=== PATIENT | male | born 1950 | race Caucasian/White ===

== ENCOUNTER → 2017-10-02 | Outpatient (CLI) | payer MEDICARE ==
[2017-09-30 14:32] VITALS: BMI 40.8
[2017-10-02 14:13] VITALS: BP 150/86; PULSE 73; RESP 16
--- NOTE | 2017-10-02 16:26 | P.CONS ---
History of Present Illness - Reason for Consult Consult date: 10/02/17 - History of Present Illness This is 67 years old male with a chronic history of severe neck pain and low back pain, he reported that his low back pain currently is more severe than his neck pain, also patient complained of some headache, which is increased with any neck movement, he denies any numbness or tingling sensation in the upper extremities, and he reported that his low back pain localized mainly in the low back area and is not ready to to the lower extremity he had no numbness or tingling sensation in the lower extremities, he had no motor or sensory deficit in the lower extremities he had no change in the bowel movement. Urination he had no fever or night sweats, is currently on multiple pain medication which is helping to some degree , but is still not able to do activities of daily livings without pain, the pain interfere with his quality of life Past Medical History Past Medical History: COPD, CVA/TIA, GERD/Reflux, Hypertension, Osteoarthritis ( OA), Sleep Apnea/CPAP/BIPAP, Thyroid Disorder Additional Past Medical History / Comment(s): stroke 2009- slight mental memory loss, hx high bp-no current rx, hx large colon polyp, degenertive arthritis, problems with a lot of sweating causes rash on face, goiter History of Any Multi-Drug Resistant Organisms: None Reported Past Surgical History: Back Surgery, Bowel Resection, Orthopedic Surgery Additional Past Surgical History / Comment(s): anal fistula, ,left orchietcomy, neck fusion Past Anesthesia/Blood Transfusion Reactions: No Reported Reaction Smoking Status: Former smoker - Past Family History Mother Family Medical History: Cancer Father Family Medical History: Cancer Sister(s) Family Medical History: Cancer Medications and Allergies Home Medications Medication Instructions Recorded Confirmed Type Esomeprazole Magnesium [NexIUM] 40 mg PO DAILY 09/30/17 09/30/17 History Furosemide [Lasix] 40 mg PO DAILY 09/30/17 09/30/17 History Gabapentin [Neurontin] 200 mg PO BID 09/30/17 09/30/17 History Gabapentin [Neurontin] 300 mg PO QAM 09/30/17 09/30/17 History Gabapentin [Neurontin] 600 mg PO HS 09/30/17 09/30/17 History LORazepam [Ativan] 1 mg PO QAM 09/30/17 09/30/17 History LORazepam [Ativan] 2 mg PO HS 09/30/17 09/30/17 History Levothyroxine Sodium [Synthroid] 100 mcg PO DAILY 09/30/17 09/30/17 History Naproxen [Naprosyn] 500 mg PO BID 09/30/17 09/30/17 History Sertraline [Zoloft] 100 mg PO BID 09/30/17 09/30/17 History oxyCODONE-APAP 10-325MG [Percocet 1 tab PO TID 09/30/17 09/30/17 History 10-325 mg] tiZANidine [Zanaflex] 4 mg PO BID 09/30/17 09/30/17 History Allergies Allergy/AdvReac Type Severity Reaction Status Date / Time adhesive tape Allergy Rash/Hives Verified 09/30/17 14:19 Penicillins Allergy Unknown Verified 09/30/17 14:19 Childhood Physical Exam Vitals: Vital Signs Pulse Resp BP Pulse Ox 10/02/17 14:00 73 16 150/86 99 Social history : not smoker , NO ETOH , NO Illegal drugs use . Review of Systems : 1- Constitutional : no chills , no fever , no night sweats , 2- Ears : no ear discharge , no change in hearing 3-Nose, Mouth ,Throat ; no bleeding gums, no sore throat , no epistaxis , 4-Cardiovascular : Denies chest pain, , no orthopnea , no palpitation 5-Respiratory : Denies cough , no dyspnea , no hemoptysis 6-Gastrointestinal :, no change in bowel habits , no coffee- ground emesis . 7-Genitourinary : No hematuria , no discharge , no incontinence, 8-Musculoskeletal : No gait dysfunction , report low back pain , 9- Neurological : no ataxia , no tremor , no sezure , 10-Psychatric , no suicidal ideation no hallucination 11- Endocrine : no cold intolerence , no polyuria , no polydypsia , 12-Hematologic : no easy bleeding , no easy brusing , 13-Allergic / immunology : no angioedema , no wheezing ,no allergic rhinitis 14-Integumentary : no brttle nails , no change hair / nails , no foot/leg ulcers . Physical Examinations : 1-Constitutional : Cooperative , not in acute distress . 2-HEENT : nech ; supple , no Lymphadenopathy , no Thyromegaly , :eyes , no icterus, no photophobia . ENT : , normal oropharynx , no Thrush 3- Respiratory : Chest clear to auscultations Bilaterally , no wheezing . 4- Cardiovascular : regular rate and rhythem , S1 , S2 , no S3 , no S4. 5- Gastrointestinal: abdomen soft no tenderness , no organomegally . 6- Genitourinary : Defferred . 7-Integumentary : No cellulitis , no ulcers , normal skin turgor , no cyanotic . 8- neurologic : Cranial nerve II to XII intact , no focal neurological deffecit 9-psychatric : alert , oriented X 3 , appropriate affect , intact judgment and insight . 10-Lymphatic : no Lymphadenopathy. 11- musculoskeltal: normal gait Cervical Spine motor stregnth in the deltoid and biceps, normal right side , normal Left side motor stregnth biceps and the wrist extensors normal right side ,normal left side . motor stregnth in the triceps muscle . normal Right side , normal Left side deep tendon reflexes normal at the biceps , normal at Brachioradialis , normal at triceps. positive cervical facet loading test . Lumber spine moter stegnth lower extremities ,thigh and legs 5/5 Right side , 5/5 Left side deep tendon reflexes : normal Knee Jerk , normal ankle Jerk positive lumber facet Loading Test Range of motion of the lumbar spine Flexion 30 degrees, extension 10 degrees strait leg raising test negative bilaterally Fabere test negative bilaterally . tenderness over the Sacroiliac joint on the R and L sides Results Comments: MRI of the lumbar spine showed multilevel lumbar degenerative disc disease and multilevel lumbar facet arthropathy and levoscoliosis, MRI of the cervical spine showed multilevel cervical degenerative disc disease Assessment and Plan Plan: Assessment and plan= chronic low back pain secondary to lumbar degenerative disc disease , lumbar spondylosis with lumbar facet arthropathy Neck pain secondary to cervical degenerative disc disease chronic and current use of high-risk medication (opioids) Patient denies any side effects of the current pain medication and the current treatment/medication ML and the patient to do activity of daily living , Diagnoses, prognosis, treatment options, including but not limited to physical therapy, medication management, interventional therapies, and surgery, were discussed with the patient All the questions answered Patient signed the narcotic agreement, and he was orally counseled, not to overuse, not to abuse, not to Divert , not tp sell pain medication, and to take it as prescribed only, Patient was counseled not to drive or operate heavy equipment while using narcotic medication, and advised not to use alcohol or any Illicit drugs while using the narcotis, the patient's verbalized understanding that lack of compliance with any of the above instructions and will likely to cause discharge from the pain service, not to renew his narcotic prescriptions, Patient used to go to [facility] but he elected to switch his care to [facility] pain clinic, because he lives closer to [place], he signed the narcotic agreement ,and next visit we'll do urine drug screen Medication managements= patient will be given prescription refills for 1-Percocet 10/325 every 6 hours dispense 90 with 1 refill 2-change Neurontin to 400 mg every 8 hours 3-continue Zanaflex 4 mg twice a day Interventional pain management= bilateral medial branch block lumbar area at L3-4/L4/L5-S1 , Time with Patient: Greater than 30
== END | disposition home or self-care (01) ==
LOC: PNWHC3 13:27
PROVIDERS: ATTEND Specialist
DX: M51.36 Other intervertebral disc degeneration, lumbar region (principal); M50.30 Other cervical disc degeneration, unspecified cervical region; M47.816 Spondylosis without myelopathy or radiculopathy, lumbar region; M46.96 Unspecified inflammatory spondylopathy, lumbar region; J44.9 Chronic obstructive pulmonary disease, unspecified; K21.9 Gastro-esophageal reflux disease without esophagitis; I10 Essential (primary) hypertension; M19.90 Unspecified osteoarthritis, unspecified site; Z79.891 Long term (current) use of opiate analgesic; Z79.1 Long term (current) use of non-steroidal anti-inflammatories (NSAID); Z91.09 Other allergy status, other than to drugs and biological substances; Z88.0 Allergy status to penicillin; Z79.899 Other long term (current) drug therapy; Z86.73 Personal history of transient ischemic attack (TIA), and cerebral infarction without residual deficits; Z86.39 Personal history of other endocrine, nutritional and metabolic disease; Z87.891 Personal history of nicotine dependence
CPT/HCPCS: 99201

== ENCOUNTER 2017-12-18 08:59 | Day surgery (SDC) | payer MEDICARE ==
[2017-12-11 10:01] VITALS: BMI 41.3
[~2017-12-18 08:59] MED LIST: LACTATED RINGERS 1,000 ML IV SCH
[2017-12-18 09:56] VITALS: TEMP 98.2
[2017-12-18] MEDS ORDERED: LIDOCAINE 1% 20 ML VIAL (10MG/ML) FOR IV START INTRADERMA ONE (10:15)
--- NOTE | 2017-12-18 10:43 | P.PCN ---
Date of Procedure: 12/18/17 Procedure(s) Performed: PREOPERATIVE DIAGNOSIS : 1- Lumbar spondylosis with Facet Arthropathy without myelopathy . 2- Lumber degenerative disc disease POSTOPERATIVE DIAGNOSIS: 1- Lumbar spondylosis with Facet Arthropathy without myelopathy . 2- Lumber degenerative disc disease PROCEDURE: Diagnostic bilateral L3 -4 , L4 -5 , and L5-S1 medial branch block under fluoroscopy ANESTHESIA: Local with 1% lidocaine 6 ml , moderate sedation with intravenous Versed 2 mg . EBL: Minimal COMPLICATION: None. IV FLUIDS: 100 mL of normal saline. PROCEDURE INDICATION: Chronic low back pain secondary to Facet arthropathy unresponsive to conservative treatment. PROCEDURE DESCRIPTION: the patient was seen and identified in the preop holding area , risks and benefits and possible complications of the procedure and alternative were discussed with the patient, and the patient agreed to proceed with the procedure and signed the consent IV was started and vital signs monitored during the procedure and fluoroscopy was used to maximize the benefit and accuracy of the needle placement, and sedation was given to decrease patient anxiety, patient was taken to the procedure room and placed in prone position vital signs monitored in the back prepped with chlorhexidine X3 then under strict sterile technique using a right oblique fluoroscopy ,the junction of the transverse process and the superior articulating process of the right L3- 4 , L4- 5, and L5-S1 vertebra which corresponding to the fluoroscopy image of the eye of the David dog on the block side for the medial branches and subsequently , after local infiltration of skin and subcu tissuies with lidocaine 1% one mL at each level ,then 22- gauge Quincke-type needles , 3 needle was used , each one of them placed at the junction of the base of the transverse process and the superior articular process at the appropriate level, and the needle was advanced until the periosteum contacted, needle placement confirmed with AP oblique and lateral view and after appropriate needle placement confirmed, and after negative aspiration for heme and CSF and there was no paresthesia 1-1/2 mL of Marcaine 0.5% mixed with 20 mg Kenalog , then half mL injected at each level after negative aspiration the needle subsequently removed and the same procedure repeated for the left side at left side at L3-4, L4- 5 and L5-S1 levels. At the end of the procedure and the needles removed and a bandage applied after the skin was cleaned the cleaning solution patient taken to recovery room in stable condition and monitors in the recovery room for 20-30 minutes and discharged home in stable condition after discharge criteria met and patient will follow up with the pain clinic in 2-4 weeks
[2017-12-18] MEDS ORDERED: IV FLUID CONTINUATION 1,000 ML IV ONE (10:51)
[2017-12-18 11:08] VITALS: BP 149/73; PULSE 80; RESP 16
--- NOTE | 2017-12-18 13:39 | FL ---
EXAMINATION TYPE: FL guided pain mgmt statistic DATE OF EXAM: 12/18/2017 FLUOROSCOPY Fluoroscopy time of 12 seconds was used during bilateral lumbar facet blocks. 4 image/s document/s t he procedure.
== END 2017-12-18 11:17 | disposition home or self-care (01) ==
LOC: ORPAIN 08:59
PROVIDERS: ATTEND Specialist
DX: G89.29 Other chronic pain (principal); M47.816 Spondylosis without myelopathy or radiculopathy, lumbar region; M51.36 Other intervertebral disc degeneration, lumbar region; I10 Essential (primary) hypertension; G47.33 Obstructive sleep apnea (adult) (pediatric); J44.9 Chronic obstructive pulmonary disease, unspecified; Z86.73 Personal history of transient ischemic attack (TIA), and cerebral infarction without residual deficits; Z88.0 Allergy status to penicillin; Z91.09 Other allergy status, other than to drugs and biological substances
CPT/HCPCS: 80307; 64493; 64494; 64495; G0480 ×3; J2250; J3301; 80346; 80356; 80364; 99152

== ENCOUNTER → 2018-01-15 | Outpatient (CLI) | payer MEDICARE ==
[2018-01-15 13:12] VITALS: BP 146/85; PULSE 72; RESP 18; TEMP 98
--- NOTE | 2018-01-15 15:16 | P.PN ---
Subjective Progress Note Date: 01/15/18 This is 67 years old male with a chronic history of severe low back pain, he was diagnosed with lumbar spondylosis and lumbar degenerative disc disease, we have done diagnostic medial branch block lumbar area over the last couple of months, he reported that he had no benefit from the diagnostic medial branch block, he has lumbar epidural steroid injections done by Dr. Matias , and he had no benefit from it, he was evaluated by Dr. Hilliard orthopedic spine surgeon and he recommended lumbar fusion surgery for him, currently he is on Neurontin 600 mg 3 times a day, Zanaflex 4 mg twice a day, Percocet 10/325 every 6 hours, he denies any side effects of the medication he denies any excessive drowsiness or sleepiness and he reports a current pain medication helping him to control his pain, he denies any fever or night sweats. He denies any change in the bowel movement or urination, and no motor or sensory deficit Objective - Vital Signs Vital signs: Vital Signs Temp 98 F 01/15/18 13:06 Pulse 72 01/15/18 13:06 Resp 18 01/15/18 13:06 BP 146/85 01/15/18 13:06 Pulse Ox 96 01/15/18 13:06 Intake & Output 01/14/18 01/15/18 01/15/18 18:59 06:59 18:59 Weight 125.645 kg - Exam Physical Examinations : 1-Constitutiona : Cooperative , not in acute distress . 2-HEENT : nech ; supple , no Lymphadenopathy , normal thyroid size . eyes : no ptosis , no icterus, no photophobia . ENT : normal of hearing , normal oropharynx , no Thrush . 3- Respiratory : Chest clear to auscultations Bilaterally , no wheezing , no Rhonchi . 4- Cardiovascular : regular rate and rhythem , S1 , S2 , no S3 , no S4. 5- Gastrointestinal : abdomen soft no tenderness , bowel sounds positive all four quadrents , no organomegally . 6- Genitourinary : Defferred . 7- neurologic : Cranial nerve II to XII intact , no focal neurological deffecit . 8-psychatric : alert , oriented X 3 , appropriate affect , intact judgment and insight . 9-Lymphatic : no Lymphadenopathy . 10- musculoskeltal : , Lumber spine = normal moter stegnth lower extremities ,thigh and legs .4/5 deep tendon reflexes : normal Knee Jerk , normal ankle Jerk . lumber facet Loading Test positive strait leg raising test positive at 30 degree Right , positve at 30 degree Left Fabere test positive Right and positive Left Assessment and Plan Plan: Assessment and plan= chronic low back pain secondary to lumbar degenerative disc disease , lumbar spondylosis with lumbar facet arthropathy , chronic and current use of high-risk medication (opioids) Patient denies any side effects of the current pain medication and the current treatment/medication ML and the patient to do activity of daily living , Diagnoses, prognosis, treatment options, including but not limited to physical therapy, medication management, interventional therapies, and surgery, were discussed with the patient All the questions answered Patient signed the narcotic agreement, and he was orally counseled, not to overuse, not to abuse, not to Divert , not tp sell pain medication, and to take it as prescribed only, Patient was counseled not to drive or operate heavy equipment while using narcotic medication, and advised not to use alcohol or any Illicit drugs while using the narcotis, the patient's verbalized understanding that lack of compliance with any of the above instructions and will likely to cause discharge from the pain service, not to renew his narcotic prescriptions Medication managements= patient will be given prescription refills for Neurontin 600 mg 3 times a day, dispense 90 with 1 refill, Zanaflex 4 mg twice daily, dispense 60 with one refill, Percocet 10/325 every 6 hours dispense 90 with 1 refill, also patient could benefit from the TENS unit trial prescription for physical therapy for TENS unit trial given, Patient is not a candidate for radiofrequency ablation of the medial branch lumbar area because he had negative result after the diagnostic medial branch block ( had ZERO releife ) And he had lumbar epidural steroid injection without any benefit (done at different pain clinic/Dr. Matias ) patient is not interested in having any surgical interventions, the patient reported that Dr. Hilliard he recommended lumbar fusion surgery , and the patient is not interested, patient will follow up in the pain clinic in 2 months , Time with Patient: Less than 30
== END | disposition home or self-care (01) ==
LOC: PNWHC3 12:06
PROVIDERS: ATTEND Specialist
DX: G89.29 Other chronic pain (principal); M54.5 Low back pain; M51.36 Other intervertebral disc degeneration, lumbar region; M47.816 Spondylosis without myelopathy or radiculopathy, lumbar region; M46.86 Other specified inflammatory spondylopathies, lumbar region; Z79.52 Long term (current) use of systemic steroids; Z79.899 Other long term (current) drug therapy; Z79.891 Long term (current) use of opiate analgesic
CPT/HCPCS: 99211

== ENCOUNTER → 2018-03-12 | Outpatient (CLI) | payer MEDICARE ==
[2018-03-12 13:56] VITALS: BP 151/81; PULSE 75; RESP 16
--- NOTE | 2018-03-12 14:46 | P.PN ---
Progress Note - Text Progress Note Date: 03/12/18 Progress Note Date: 11/20/17 Patient presents for follow-up visit with chief complaint of chronic low back pain with radiating right lower extremity pain, and lower extremity weakness. Patient had bilateral lumbar medial branch blocks which did not relieve any of his low back pain. I reviewed patient's MRI and explained to him the findings in this patient has severe bilateral neural foraminal stenosis at the L5-S1 junction, as well as spondylolisthesis, and facet arthropathy. I discussed with him the risks and benefits of doing a transforaminal epidural steroid injection, how to be both diagnostic and therapeutic. Patient is not considered a surgical candidate after having been evaluated by 2 neurosurgeons, and wishes to proceed with minimally invasive procedures to help control signs and symptoms. Today, pt denies new-onset weakness, bowel/bladder incontinence, or any other signs or symptoms of cauda equina syndrome. There are no signs of acute intoxication, and no indications of medication diversion or overuse. In addition to above, 13-point review of systems is also negative for chest pain , shortness of breath, changes in vision, changes in hearing, new onset weakness , abdominal pain, diarrhea, extreme fatigue, malaise, fever, skin changes, homicidal or suicidal ideation, or bowel or bladder incontinence. Vital Signs: Reviewed in EMR Gen: WDWN, AAOx3, NAD HEENT: NCAT, EOMI, hearing grossly normal Pulm: resp unlabored Abd: soft, NT, ND, obese Neck: supple, trachea midline ROM in flexion lumbar spine: reduced ROM in extension lumbar spine: reduced Lumbar paravertebral tenderness: + Facet loading: + R > L SI joint tenderness: + bilateral Sebas's test: + bilateral Straight leg raise: Positive on right at 30 4/5 dorsiflexion right foot, difficulty with ambulation with feet in dorsiflexed position Patellar reflexes intact bilateral Achilles reflex slightly diminished on right compared to left Neuro: CN II-XII grossly intact, muscle strength lower extremities PRESERVED Imaging: Reviewed in EMR Assessment: 1. Lumbar spondylolisthesis L5-S1 with bilateral neural foraminal stenosis 2. Lumbar facet arthropathy with spinal canal narrowing 3. chronic pain syndrome 4. Opioid dependency 5. Morbid obesity Plan: 1. Explanation: Opioid and psychological risk scores were reviewed. Diagnoses , prognoses, and multiple treatment options including but not limited to physical therapy, interventional therapies, adjuvant medical therapies, narcotic medication therapies, and surgery were discussed with the patient and all questions were answered to the patient's satisfaction. 2. Opioid agreement: Patient has previously signed narcotic agreement, and was orally counseled to not overuse, abuse, divert, or cell medications, and to take them as prescribed by only 1 healthcare provider. The patient was also counseled to store opioid medications in a safe and preferably locked location. Patient was also counseled against driving or operating heavy equipment while using narcotic medications and also to not use alcohol or any illicit or recreational drugs. The patient verbalized understanding that lack of compliance with any of the above and likely result in failure to renew narcotic prescriptions, possible discharge from the clinic, and possible legal ramifications thereafter if indicated. 3. Counseling: The patient was counseled extensively on BODY MASS INDEX, EXERCISE. Specifically, the patient was instructed regarding the importance of weight control, and exercise in the context of both chronic pain and overall health. 4. Procedures: Right L5 transforaminal epidural steroid injection 5. Consultations: Patient has been evaluated by neurosurgeons in the past, he was not deemed a surgical candidate because of overall comorbidities 6. Investigations: Maps reviewed and appropriate 7. Medications: [place] 10/325 #90 with no refill, Neurontin with two refills, Zanaflex with two refills 8. Disposition: f/u for procedure as scheduled. I spent 30 minutes with this patient, indicating that high-dose benzos with narcotics could result in respiratory depression and , and that he would likely be best served seeing a psychiatrist for non-benzo medical management of his anxiety, but the patient flatly refused and stated that he accepted all risks of being prescribed both opioids and benzos. PQRS measures: 1-Patient's medications are documented in the chart. 2-Tobacco use is negative 3-Patient has not had a pneumococcal vaccine. 4-Advanced care planning discussed, patient unable to give. 5-Opioid contract signed with the patient. 6-Pain positive, follow-up visit or procedure scheduled 7-Patient's blood pressure measured and documented, and patient will follow up with the primary care due to hypertension. 8-Patient's weight was measured, and body mass index ABOVE the normal limits, and counseling was done. Patient instructed to follow up with PCP. 9-Patient WAS NOT identified as an unhealthy alcohol user.
== END | disposition home or self-care (01) ==
LOC: PNWHC3 12:45
PROVIDERS: ATTEND Anesthesiology
DX: G89.4 Chronic pain syndrome (principal); M54.5 Low back pain; M48.061 Spinal stenosis, lumbar region without neurogenic claudication; M99.73 Connective tissue and disc stenosis of intervertebral foramina of lumbar region; M99.74 Connective tissue and disc stenosis of intervertebral foramina of sacral region; M43.17 Spondylolisthesis, lumbosacral region; M46.86 Other specified inflammatory spondylopathies, lumbar region; F11.20 Opioid dependence, uncomplicated; E66.01 Morbid (severe) obesity due to excess calories
CPT/HCPCS: 99211

== ENCOUNTER 2018-04-15 08:00 | Day surgery (SDC) | payer MEDICARE ==
[2018-04-13 09:03] VITALS: BMI 41.2
[2018-04-15 08:35] VITALS: TEMP 98.4
[2018-04-15] MEDS ORDERED: LIDOCAINE 1% 20 ML VIAL (10MG/ML) FOR IV START INTRADERMA ONE (08:47)
[2018-04-15 09:22] VITALS: RESP 16
[2018-04-15] MEDS ORDERED: IV FLUID CONTINUATION 1,000 ML IV ONE (09:25)
[2018-04-15 09:35] VITALS: BP 158/78; PULSE 68
--- NOTE | 2018-04-15 09:55 | FL ---
EXAMINATION TYPE: FL guided pain mgmt statistic DATE OF EXAM: 04/15/2018 FLUOROSCOPY Fluoroscopy time of 45 seconds was used during lumbar pain intervention procedure. 4 image/s documen t/s the procedure.
--- NOTE | 2018-04-15 10:21 | P.PCN ---
Date of Procedure: 04/15/18 Surgeon: Camilo Jaimes Pathology: none sent Condition: stable Disposition: PACU Description of Procedure: PREOPERATIVE DIAGNOSIS: Lumbar radiculopathy POSTOPERATIVE DIAGNOSIS: Lumbar radiculopathy PROCEDURE: 1. Transforaminal epidural steroid injection under fluoroscopic guidance at right L5 level. 2. Lumbar epidurogram. ANESTHESIA: Local with 1% lidocaine; IV sedation with Versed and fentanyl EBL: Minimal PROCEDURE INDICATION: The patient with low back pain and radiculopathy symptoms unresponsive to conservative treatment. Patient has pain primarily on the right side, so will proceed with TFESI today. No use of blood thinners. PROCEDURE DESCRIPTION / TECHNIQUE: The patient was seen and identified in the preoperative area. Risks, benefits, complications, and alternatives were discussed with the patient (including but not limited to incomplete pain relief, bleeding, infection, nerve damage, and allergies to medications), the patient agreed to proceed with the procedure and signed the consent after all questions were answered. Patient was taken to the OR and time out was completed to verify proper patient, position, laterality of pain, and allergies. Pt was placed in the prone position and a pillow was placed under the abdomen to reduce lumbar lordosis. The lumbosacral area was prepped and draped in the usual sterile fashion. Vital signs were closely monitored during the procedure. Conscious sedation was used during the procedure to decrease patients anxiety. Using oblique fluoroscopy, the chin of the David dog at right L5 level was identified, and the skin and deeper tissues just below was localized with 1% lidocaine. Subsequently, a 22-gauge 3.5-inch spinal needle was advanced under a tunneled view fluoroscopic guidance just underneath the chin of the David dog at the right L5 level. Under lateral fluoroscopy, the needle was then advanced to the posterior border of the L5-S1 interforaminal space. After negative aspiration of CSF and blood and with no paresthesias, 1 mL of Isovue- 200 contrast dye was injected excellent epidurogram and outlining of the L5 nerve roots. Subsequently, 3 mL of total 3 ml block solution containing 20 mg of Decadron and 1 mL of PF lidocaine 1% was injected. At the end of the procedure, needles were removed intact, skin was cleansed, and bandages were applied. COMPLICATIONS: None COMMENTS: None. DISPOSITION / PLANS: The patient was placed in a supine position and transferred to the recovery area in a stable condition for observation. There was no evidence of lower extremity motor or sensory deficit after the procedure. Patient was discharged from the recovery room after meeting discharge criteria. Home discharge instructions were given to the patient by the staff. The patient was reexamined prior to discharge and there were no issues. The patient will schedule a follow up in clinic in 2-4 weeks to discuss efficacy.
== END 2018-04-15 09:57 | disposition home or self-care (01) ==
LOC: ORPAIN 08:00
PROVIDERS: ATTEND Anesthesiology
DX: M54.16 Radiculopathy, lumbar region (principal); I10 Essential (primary) hypertension; K21.9 Gastro-esophageal reflux disease without esophagitis; Z88.0 Allergy status to penicillin; Z91.048 Other nonmedicinal substance allergy status
CPT/HCPCS: 64483; J2250; J1100; J3010; Q9966; 99152

== ENCOUNTER → 2018-05-07 | Outpatient (CLI) | payer MEDICARE ==
--- NOTE | 2018-05-07 13:34 | P.PN ---
Progress Note - Text Progress Note Date: 05/07/18 Patient returns for followup for chronic back pain with radiation to hips and lower legs. Patient recently underwent R lumbar L5 TFESI which caused him severe pain and only 7-10 days' relief. Patient continues on Brush, Neurontin, and Zanaflex medications for pain with good relief. He is now off Ambien and Ativan completely. Patient denies adverse drug effects from medications. Today , pt denies new-onset weakness, bowel/bladder incontinence, or any other signs or symptoms of cauda equina syndrome. There are no signs of acute intoxication, and no indications of medication diversion or overuse. In addition to above, 13-point review of systems is also negative for chest pain , shortness of breath, changes in vision, changes in hearing, new onset weakness , abdominal pain, diarrhea, extreme fatigue, malaise, fever, skin changes, homicidal or suicidal ideation, or bowel or bladder incontinence. Vital Signs: Reviewed in EMR Gen: WDWN, AAOx3, NAD HEENT: NCAT, EOMI, hearing grossly normal Pulm: resp unlabored Abd: soft, NT, ND, obese Neck: supple, trachea midline ROM in flexion lumbar spine: reduced ROM in extension lumbar spine: reduced Lumbar paravertebral tenderness: + Facet loading: + R > L SI joint tenderness: + bilateral Sebas's test: + bilateral Straight leg raise: + RLE at 10 degrees Imaging: Reviewed in EMR Assessment: 1. morbid obesity 2. lumbar spondylosis 3. chronic pain syndrome Plan: 1. Explanation: Opioid and psychological risk scores were reviewed. Diagnoses , prognoses, and multiple treatment options including but not limited to physical therapy, interventional therapies, adjuvant medical therapies, narcotic medication therapies, and surgery were discussed with the patient and all questions were answered to the patient's satisfaction. 2. Opioid agreement: Patient has previously signed narcotic agreement, and was orally counseled to not overuse, abuse, divert, or cell medications, and to take them as prescribed by only 1 healthcare provider. The patient was also counseled to store opioid medications in a safe and preferably locked location. Patient was also counseled against driving or operating heavy equipment while using narcotic medications and also to not use alcohol or any illicit or recreational drugs. The patient verbalized understanding that lack of compliance with any of the above and likely result in failure to renew narcotic prescriptions, possible discharge from the clinic, and possible legal ramifications thereafter if indicated. 3. Counseling: The patient was counseled extensively on BODY MASS INDEX, EXERCISE. Specifically, the patient was instructed regarding the importance of weight control, and exercise in the context of both chronic pain and overall health. 4. Procedures: none for now 5. Consultations: None 6. Investigations: UDS appropriate, MAPS queried and appropriate 7. Medications: Percocet 10/325 #90 with no refill, Neurontin increased to 600 mg QID (1200 mg at night) with one refill, Zanaflex with one refill 8. MME/day: 45 (unchanged) 8. Disposition: f/u for re-eval in 4 weeks. Recommended melatonin and increased dose of Neurontin at night to help with sleep. PQRS measures: 1-Patient's medications are documented in the chart. 2-Tobacco use is negative 3-Patient has not had a pneumococcal vaccine. 4-Advanced care planning discussed, patient unable to give. 5-Opioid contract signed with the patient. 6-Pain positive, follow-up visit or procedure scheduled 7-Patient's blood pressure measured and documented, and patient will follow up with the primary care due to hypertension. 8-Patient's weight was measured, and body mass index ABOVE the normal limits, and counseling was done. Patient instructed to follow up with PCP. 9-Patient WAS NOT identified as an unhealthy alcohol user.
== END | disposition home or self-care (01) ==
LOC: PNWHC3 12:44
PROVIDERS: ATTEND Anesthesiology
DX: G89.4 Chronic pain syndrome (principal); M54.9 Dorsalgia, unspecified; M47.816 Spondylosis without myelopathy or radiculopathy, lumbar region; E66.01 Morbid (severe) obesity due to excess calories; Z79.891 Long term (current) use of opiate analgesic; Z79.899 Other long term (current) drug therapy
CPT/HCPCS: 99211

== ENCOUNTER → 2018-06-04 | Outpatient (CLI) | payer MEDICARE ==
[2018-06-04 13:24] VITALS: BP 136/75; PULSE 72; RESP 18
--- NOTE | 2018-06-04 13:57 | P.PAINPG ---
Subjective Progress Note Date: 06/04/18 Principal diagnosis: Back pain, lumbar radicular pain This a very pleasant 68-year-old gentleman with a history of low back pain as well as lumbar radicular pain. He is undergone previous transforaminal epidural steroid injections which unfortunately was not helpful for him. He is also had previous compression fractures in his back and undergone kyphoplasty procedures which were not helpful either. He has had cervical spine surgery in the past. He did discuss lumbar spine surgery with his surgeon and was told it would take greater than 1 year for recovery. This is out of the question for him. He denies bowel or bladder dysfunction. He is not interested in further interventional procedures at this time. He would prefer to stay with medication management. He has discontinued his benzodiazepines as requested by one of my colleagues. Objective - Vital Signs Vital signs: Vital Signs Temp Pulse 72 06/04/18 13:13 Resp 18 06/04/18 13:13 BP 136/75 06/04/18 13:13 Pulse Ox 93 L 06/04/18 13:13 Intake & Output 06/03/18 06/04/18 06/04/18 18:59 06:59 18:59 Weight 120.656 kg - Exam General: The patient is alert and oriented. Patient is not sedateded Patient answers all question appropriately. He walks with antalgic gait. Cardiac: Heart is regular in rate and rhythm Respiratory: Clear to auscultation. No audible wheezes. Abdomen: Soft nontender nondistended. Lower extremities: Strength is normal bilaterally. Sensation is normal bilaterally. Reflexes are preserved and symmetric bilaterally. Straight leg raise is negative bilaterally. Assessment and Plan (1) Degenerative lumbar spinal stenosis Narrative/Plan: Plan of Care 1. Medications: I will refill the patient's medications today. His previous urine drug screen revealed expected results. A sample was collected today for processing. I have reviewed the patient's MAPS report and it reveals expected results. Patient has signed an opiate agreement as well as opiate consent for treatment in our clinic. They understand the risks and benefits of opiate medications. They are aware of the potential for addiction. 2. Interventions: Patient has not had good luck with previous injections. They have not helped him. We will not schedule any procedures at this time. 3. Referrals: He will follow-up with his spine surgeon on an as-needed basis. 4. Testing: A urine drug sample was sent today. 5. Psychological: Patient reports that he is coping with his situation well. He has a good level of acceptance of his situation. I will not refer him to a psychologist today. Current Visit: Yes Status: Acute Code(s): M48.061 - SPINAL STENOSIS, LUMBAR REGION WITHOUT NEUROGENIC BETTY SNOMED Code(s): 577188174 (2) Lumbar radicular pain Current Visit: Yes Status: Acute Code(s): M54.16 - RADICULOPATHY, LUMBAR REGION SNOMED Code(s): 305163606 (3) Chronic radicular lumbar pain Current Visit: Yes Status: Acute Code(s): M54.16 - RADICULOPATHY, LUMBAR REGION; G89.29 - OTHER CHRONIC PAIN SNOMED Code(s): 77173244 PQRS Measure Charge Sheet Measure #130: Documentation of Current Meds in Medical Chart: Patient's medications documented in chart Measure #226: Tobacco Use: Screen & Cessation Intervention: Pt not a tobacco user Measure #111: Pneumonia Vaccination: Pneumococcal vaccine NOT administered or previously given Measure #47: Advance Care Plan: Advance care planning discussed & documented, pt chose/unable to give Measure #412: Opioid Treatment Agreement: Documented signed opioid trtmnt agreemnt min once during opioid trtmnt Measure #408: Opioid Therapy Follow-up Evaluation: Patient had f/u eval minimum every 3 months during opioid therapy Measure #317: Preventitive Care & Scrn High Bld Press & F/U: Pre-hypertensive or hypertensive BP documented, pt will f/u with PCP Measure #128: Body Mass Index (BMI) Screening & Follow-up: BMI documented ABOVE normal parameters - f/u documented Measure #131: Pain Assessment & Follow-up: Pain positive & plan documented Measure #431: Unhealthy Alcohol Use Preventative Care & Scrn: Patient not identified as an unhealthy alcohol user PQRS Narrative: Smoking Status Current some day smoker Narcotic Agreement Date Signed 10/02/17 Blood Pressure 136/75 Pain Intensity [Right Lower 9 Back] Scale Used Numeric (1 - 10) Hx Alcohol Use (MH) No Home Medications: Ambulatory Orders Furosemide [Lasix] 40 mg PO DAILY 09/30/17 Levothyroxine Sodium [Synthroid] 100 mcg PO DAILY 09/30/17 Sertraline [Zoloft] 100 mg PO BID 09/30/17 Dexlansoprazole [Dexilant] 60 mg PO DAILY 11/04/17 Ranitidine HCl [Zantac] 150 mg PO DAILYX6 PRN 11/04/17 Acetaminophen/Diphenhydramine [Tylenol PM 500-25mg] 2 - 4 tab PO HS PRN Aspirin [Adult Low Dose Aspirin EC] 81 mg PO DAILY 04/13/18 Calcium 500 Mg 500 mg PO DAILY 04/13/18 Cholecalciferol [Vitamin D3] 2,000 unit PO DAILY 04/13/18 Laxative 1 dose PO DAILY PRN 04/13/18 Stool Softner 1 dose PO DAILY PRN 04/13/18 Gabapentin 600 mg PO QID #120 tablet 05/07/18 oxyCODONE-APAP 10-325MG [Percocet 10-325 mg] 1 tab PO TID PRN 30 Days #90 tab tiZANidine [Zanaflex] 4 mg PO BID PRN #60 tab 05/07/18 Controlled Substance Measures - Controlled Substance Measures Is patient prescribed a controlled substance at discharge?: Yes When asked, does pt state using other controlled substances?: No If Rx opioid, was Start Talking consent form obtained?: Yes Was information provided regarding opioid addiction?: Yes
== END | disposition home or self-care (01) ==
LOC: PNWHC3 13:00
PROVIDERS: ATTEND Pain Medicine Pain Medicine
DX: M48.061 Spinal stenosis, lumbar region without neurogenic claudication (principal); M54.16 Radiculopathy, lumbar region; Z98.890 Other specified postprocedural states
CPT/HCPCS: 99211

== ENCOUNTER → 2018-07-30 | Outpatient (CLI) | payer MEDICARE ==
[2018-07-30 12:52] VITALS: PULSE 68; RESP 16
[2018-07-30 13:05] VITALS: BP 135/69
--- NOTE | 2018-07-31 10:31 | P.PAINPG ---
Subjective Progress Note Date: 07/30/18 This is follow-up visit for this patient with a history of severe and chronic low back pain secondary to lumbar degenerative disc disease, lumbar facet arthropathy, lumbar radiculopathy We have done an interventional pain procedure diadgnostic medial branch block, he had no benefit from it, but this reason we did not do the radiofrequency, and we have done transforaminal lumbar epidural steroid injection, he had no benefit from it , he continued to have severe low back pain with radiation to the right lower extremity The patient currently on Percocet 10/325 every 8 hours, Neurontin 600 mg every 6 hours, Zanaflex 4 mg twice a day, Patient was seen by a spine surgeon Dr. Hilliard , and he recommended no surgical interventions because patient is high risk for surgery. Patient denies any side effect of the medication , patient denies any excessive drowsiness or sleepiness, patient denies any suicidal ideation, Patient reported that the current medication is helping to control the pain and improve the activity of daily livings, Patient denies any motor or sensory deficit, denies any change in the bowel movement or urination, patient denies any fever or night sweats. Patient here today for follow-up visit and medication refill Objective - Vital Signs Vital signs: Vital Signs Temp Pulse 68 07/30/18 12:44 Resp 16 07/30/18 12:44 BP 135/69 07/30/18 12:44 Pulse Ox 98 07/30/18 12:44 Intake & Output 07/30/18 07/31/18 07/31/18 18:59 06:59 18:59 Weight 122.47 kg - Exam Physical Examinations : 1-Constitutiona : Cooperative , not in acute distress . 2-HEENT : nech ; supple , no Lymphadenopathy , normal thyroid size . eyes : no ptosis , no icterus , no photophobia . ENT : normal of hearing , normal oropharynx , no Thrush . 3- Respiratory : Chest clear to auscultations Bilaterally , no wheezing , no Rhonchi . 4- Cardiovascular : regular rate and rhythem , S1 , S2 , no S3 , no S4. 5- Gastrointestinal : abdomen soft no tenderness , bowel sounds , no organomegally . 6- Genitourinary : Defferred . 7- neurologic : Cranial nerve II to XII intact , no focal neurological deffecit . 8-psychatric : alert , oriented X 3 , appropriate affect , intact judgment and insight . 9-Lymphatic : no Lymphadenopathy . 10- musculoskeltal : Lumber spine moter stegnth lower extremities ,thigh and legs 5/5 Right side , 5/5 Left side deep tendon reflexes : normal Knee Jerk , normal ankle Jerk positive lumber facet Loading Test Range of motion of the lumbar spine Flexion 30 degrees, extension 10 degrees strait leg raising test, positive at 30 degree Fabere test positive RT and positive LT . Assessment and Plan Plan: Assessment and plan= chronic low back pain secondary to lumbar degenerative disc disease , lumbar spondylosis with lumbar facet arthropathy . Patient had the relief from the pain management interventions, patient is not a good surgical candidate chronic and current use of high-risk medication (opioids) Patient denies any side effects of the current pain medication and the current treatment/medication helping the patient to do activity of daily living , Diagnoses, prognosis, treatment options, including but not limited to physical therapy, medication management, interventional therapies, and surgery, were discussed with the patient All the questions answered The narcotic consent was signed and patient agreed and understood the side effects and complications of opioid treatment. Patient signed the narcotic agreement, and was orally counseled, not to overuse, not to abuse, not to Divert , not tp sell pain medication, and to take it as prescribed only, Patient was counseled not to drive or operate heavy equipment while using narcotic medication, and advised not to use alcohol or any Illicit drugs while using the narcotis, the patient's verbalized understanding that lack of compliance with any of the above instructions, will likely to cause discharge from, the pain service, not to renew his narcotic prescriptions Medication managements= patient will be given prescription refills for Percocet 10/325 every 8 hours dispense 90 with 1 refill, Neurontin 600 mg every 6 hours dispense 120 with one refill Zanaflex 4 mg twice a day dispense 60 with 1 refill. MAPS reviewed and it was appropriate , Time with Patient: Less than 30 PQRS Measure Charge Sheet Measure #130: Documentation of Current Meds in Medical Chart: Patient's medications documented in chart Measure #226: Tobacco Use: Screen & Cessation Intervention: Pt screened for tobacco use AND intervention given Measure #111: Pneumonia Vaccination: Pneumococcal vaccine administered or previously received Measure #47: Advance Care Plan: Advance care planning discussed & documented, pt chose/unable to give Measure #412: Opioid Treatment Agreement: Documented signed opioid trtmnt agreemnt min once during opioid trtmnt Measure #408: Opioid Therapy Follow-up Evaluation: Patient had f/u eval minimum every 3 months during opioid therapy Measure #317: Preventitive Care & Scrn High Bld Press & F/U: Normal blood pressure, f/u not required Measure #128: Body Mass Index (BMI) Screening & Follow-up: BMI documented ABOVE normal parameters - f/u documented Measure #131: Pain Assessment & Follow-up: Pain positive & plan documented, Follow-up scheduled Measure #431: Unhealthy Alcohol Use Preventative Care & Scrn: Patient not identified as an unhealthy alcohol user PQRS Narrative: Smoking Status Current some day smoker Do You Want the Pneumonia Vaccine Up to Date Vaccine AT THIS TIME? Narcotic Agreement Date Signed 10/02/17 Blood Pressure 135/69 Pain Intensity [Bilateral 8 Lower Back] Scale Used Numeric (1 - 10) Hx Alcohol Use (MH) No Home Medications: Ambulatory Orders Furosemide [Lasix] 40 mg PO DAILY 09/30/17 Levothyroxine Sodium [Synthroid] 100 mcg PO DAILY 09/30/17 Sertraline [Zoloft] 100 mg PO BID 09/30/17 Dexlansoprazole [Dexilant] 60 mg PO DAILY 11/04/17 Ranitidine HCl [Zantac] 150 mg PO DAILYX6 PRN 11/04/17 Acetaminophen/Diphenhydramine [Tylenol PM 500-25mg] 2 - 4 tab PO HS PRN Aspirin [Adult Low Dose Aspirin EC] 81 mg PO DAILY 04/13/18 Calcium 500 Mg 500 mg PO DAILY 04/13/18 Cholecalciferol [Vitamin D3] 2,000 unit PO DAILY 04/13/18 Laxative 1 dose PO DAILY PRN 04/13/18 Stool Softner 1 dose PO DAILY PRN 04/13/18 Gabapentin 600 mg PO QID #120 tablet 07/30/18 oxyCODONE HCL/ACETAMINOPHEN [Percocet 10-325 mg] 1 tab PO Q8HR PRN 30 Days #90 tab 07/30/18 oxyCODONE-APAP 10-325MG [Percocet 10-325 mg] 1 tab PO TID PRN 30 Days #90 tab 08 /30/18 tiZANidine [Zanaflex] 4 mg PO BID PRN #60 tab 07/30/18 Controlled Substance Measures - Controlled Substance Measures Is patient prescribed a controlled substance at discharge?: Yes When asked, does pt state using other controlled substances?: No If prescribed controlled substance>3 days was MAPS reviewed?: Yes If Rx opioid, was Start Talking consent form obtained?: Yes If opioid is for acute pain is fill amount 7 days or less?: No Was information provided regarding opioid addiction?: Yes
== END | disposition home or self-care (01) ==
LOC: PNWHC3 12:35
PROVIDERS: ATTEND Specialist
DX: G89.29 Other chronic pain (principal); M54.5 Low back pain; M51.16 Intervertebral disc disorders with radiculopathy, lumbar region; M47.26 Other spondylosis with radiculopathy, lumbar region; M46.86 Other specified inflammatory spondylopathies, lumbar region; F17.200 Nicotine dependence, unspecified, uncomplicated; Z79.891 Long term (current) use of opiate analgesic
CPT/HCPCS: 99211

== ENCOUNTER → 2018-09-24 | Outpatient (CLI) | payer MEDICARE ==
[2018-09-24 13:00] VITALS: BP 131/66; PULSE 55; RESP 16
--- NOTE | 2018-09-24 13:30 | P.PN ---
Subjective Progress Note Date: 09/24/18 Principal diagnosis: Lumbar degenerative disc disease This is a 68-year-old gentleman with history of chronic lower back pain with radiation to the lower extremities down to his feet and also numbness and tingling in no specific radicular distribution. The patient feels mild weakness in his legs. He also complains of pain around the right upper thoracic spine area between his right shoulder and the spine. The patient is not a surgical candidate due to history of stroke after his cervical fusion surgery. He also did not respond to multiple interventional pain procedures. His pain now is relatively controlled by oral opioids including Percocet 10 mg plus Neurontin and Zanaflex. He denies any side effects to these medications and he does not show any drug-seeking behavior. By physical exam he is morbidly obese alert oriented 3 in no apparent distress. Neuro exam of the lower extremities showed decreased muscle strength to 4 out of 5 bilaterally and symmetrically, and absent deep tendon reflexes bilaterally and symmetrically. Straight leg raising test negative bilaterally He has tenderness on the right side of his upper thoracic spine Impression and plan: This is a 68-year-old male with lumbar degenerative disc disease and thoracic paravertebral myofascial pain. The patient may benefit from getting trigger point injection in the upper thoracic paravertebral musculature on the right side of the spine. The patient will think about this injection I will give us a call if he decides to go ahead with it. Today I will renew his medications including Percocet 10 mg #120 and his Neurontin and Zanaflex. We will see the patient 2 months from now for reevaluation Objective - Vital Signs Vital signs: Vital Signs Temp Pulse 55 L 09/24/18 12:50 Resp 16 09/24/18 12:50 BP 131/66 09/24/18 12:50 Pulse Ox 96 09/24/18 12:50 Intake & Output 09/23/18 09/24/18 09/24/18 18:59 06:59 18:59 Weight 124.284 kg
== END | disposition home or self-care (01) ==
LOC: PNWHC3 11:56
PROVIDERS: ATTEND Anesthesiology
DX: G89.29 Other chronic pain (principal); M54.5 Low back pain; M25.511 Pain in right shoulder; M51.36 Other intervertebral disc degeneration, lumbar region; M79.18 Myalgia, other site; E66.01 Morbid (severe) obesity due to excess calories; Z79.891 Long term (current) use of opiate analgesic; Z79.899 Other long term (current) drug therapy; Z98.1 Arthrodesis status; Z98.890 Other specified postprocedural states; Z68.41 Body mass index [BMI] 40.0-44.9, adult; Z86.73 Personal history of transient ischemic attack (TIA), and cerebral infarction without residual deficits
CPT/HCPCS: 99211

== ENCOUNTER → 2018-11-19 | Outpatient (CLI) | payer MEDICARE ==
[2018-11-19 12:44] VITALS: BP 132/82; PULSE 62; RESP 16
--- NOTE | 2018-11-20 14:03 | P.PN ---
Subjective Progress Note Date: 11/19/18 This is follow-up visit for this patient with a history of severe and chronic low back pain secondary to lumbar degenerative disc disease, lumbar facet arthropathy, lumbar radiculopathy We have done an interventional pain procedure diadgnostic medial branch block, he had no benefit from it, but this reason we did not do the radiofrequency, and we have done transforaminal lumbar epidural steroid injection, he had no benefit from it , he continued to have severe low back pain with radiation to the right lower extremity The patient currently on Percocet 10/325 every 8 hours, Neurontin 600 mg every 6 hours, Zanaflex 4 mg twice a day, She currently complaining of severe mid back pain , is diagnosed with compression fracture of the thoracic spine at T5 and T10 ,Patient had a kyphoplasty done at the thoracic spine and he continued to have severe mid back pain with radiation to the right side of the chest for the T 10 , he was evaluated by a spine surgeon Dr. Hilliard , and he recommended no surgical interventions because patient is high risk for surgery. Patient denies any side effect of the medication , patient denies any excessive drowsiness or sleepiness, patient denies any suicidal ideation, Patient reported that the current medication is helping to control the pain and improve the activity of daily livings, Patient denies any motor or sensory deficit, denies any change in the bowel movement or urination, patient denies any fever or night sweats. Patient here today for follow-up visit and medication refill Physical Examinations : 1-Constitutiona : Cooperative , not in acute distress . 2-HEENT : nech ; supple , no Lymphadenopathy , normal thyroid size . eyes : no ptosis , no icterus , no photophobia . ENT : normal of hearing , normal oropharynx , no Thrush . 3- Respiratory : Chest clear to auscultations Bilaterally , no wheezing , no Rhonchi . 4- Cardiovascular : regular rate and rhythem , S1 , S2 , no S3 , no S4. 5- Gastrointestinal : abdomen soft no tenderness , bowel sounds , no organomegally . 6- Genitourinary : Defferred . 7- neurologic : Cranial nerve II to XII intact , no focal neurological deffecit . 8-psychatric : alert , oriented X 3 , appropriate affect , intact judgment and insight . 9-Lymphatic : no Lymphadenopathy . 10- musculoskeltal : Flexion and extension of the thoracic spine limited secondary to pain Lumber spine moter stegnth lower extremities ,thigh and legs 5/5 Right side , 5/5 Left side deep tendon reflexes : normal Knee Jerk , normal ankle Jerk positive lumber facet Loading Test Range of motion of the lumbar spine Flexion 30 degrees, extension 10 degrees strait leg raising test, positive at 30 degree Fabere test positive RT and positive LT . Assessment and Plan Plan: Assessment and plan= Thoracic radiculopathy right-sided T9 ,T10 level chronic low back pain secondary to lumbar degenerative disc disease , lumbar spondylosis with lumbar facet arthropathy . Patient had the relief from the pain management interventions, patient is not a good surgical candidate chronic and current use of high-risk medication (opioids) Patient denies any side effects of the current pain medication and the current treatment/medication helping the patient to do activity of daily living , Diagnoses, prognosis, treatment options, including but not limited to physical therapy, medication management, interventional therapies, and surgery, were discussed with the patient All the questions answered The narcotic consent was signed and patient agreed and understood the side effects and complications of opioid treatment. Patient signed the narcotic agreement, and was orally counseled, not to overuse, not to abuse, not to Divert , not tp sell pain medication, and to take it as prescribed only, Patient was counseled not to drive or operate heavy equipment while using narcotic medication, and advised not to use alcohol or any Illicit drugs while using the narcotis, the patient's verbalized understanding that lack of compliance with any of the above instructions, will likely to cause discharge from, the pain service, not to renew his narcotic prescriptions Medication managements= patient will be given prescription refills for Percocet 10/325 every 8 hours dispense 90 with 1 refill, Neurontin 600 mg every 6 hours dispense 120 with one refill Zanaflex 4 mg twice a day dispense 60 with 1 refill. MAPS reviewed and it was appropriate Interventions= she could benefit from thoracic epidural steroid injections under fluoroscopy guidance (right paramedian approach at T10 level ) , PQRS Measure Charge Sheet Measure #130: Documentation of Current Meds in Medical Chart: Patient's medications documented in chart Measure #226: Tobacco Use: Screen & Cessation Intervention: Pt screened for tobacco use AND intervention given Measure #111: Pneumonia Vaccination: Pneumococcal vaccine administered or previously received Measure #47: Advance Care Plan: Advance care planning discussed & documented, pt chose/unable to give Measure #412: Opioid Treatment Agreement: Documented signed opioid trtmnt agreemnt min once during opioid trtmnt Measure #408: Opioid Therapy Follow-up Evaluation: Patient had f/u eval minimum every 3 months during opioid therapy Measure #317: Preventitive Care & Scrn High Bld Press & F/U: Normal blood pressure, f/u not required Measure #128: Body Mass Index (BMI) Screening & Follow-up: BMI documented ABOVE normal parameters - f/u documented Measure #131: Pain Assessment & Follow-up: Pain positive & plan documented, Follow-up scheduled Measure #431: Unhealthy Alcohol Use Preventative Care & Scrn: Patient not identified as an unhealthy alcohol user PQRS Narrative: - Controlled Substance Measures Is patient prescribed a controlled substance at discharge?: Yes When asked, does pt state using other controlled substances?: No If prescribed controlled substance>3 days was MAPS reviewed?: Yes If Rx opioid, was Start Talking consent form obtained?: Yes If opioid is for acute pain is fill amount 7 days or less?: No Was information provided regarding opioid addiction?: Yes Objective - Vital Signs Vital signs: Vital Signs Temp Pulse 62 11/19/18 12:39 Resp 16 11/19/18 12:39 BP 132/82 11/19/18 12:39 Pulse Ox 98 11/19/18 12:39 Intake & Output 11/19/18 11/20/18 11/20/18 18:59 06:59 18:59 Weight 125.645 kg
== END | disposition home or self-care (01) ==
LOC: PNWHC3 12:06
PROVIDERS: ATTEND Specialist
DX: G89.29 Other chronic pain (principal); M54.5 Low back pain; M51.16 Intervertebral disc disorders with radiculopathy, lumbar region; M47.26 Other spondylosis with radiculopathy, lumbar region; M46.86 Other specified inflammatory spondylopathies, lumbar region; F11.20 Opioid dependence, uncomplicated; F17.200 Nicotine dependence, unspecified, uncomplicated; Z98.890 Other specified postprocedural states; Z79.899 Other long term (current) drug therapy; Z71.6 Tobacco abuse counseling
CPT/HCPCS: 99211

== ENCOUNTER 2018-12-15 08:25 | Day surgery (SDC) | payer MEDICARE ==
[2018-12-11 15:28] VITALS: BMI 41.0
[~2018-12-15 08:25] MED LIST changes: -LACTATED RINGERS 1,000 ML IV SCH; +SODIUM CHLORIDE 0.9% 500 ML 500 ML IV SCH
[2018-12-15] MEDS ORDERED: LIDOCAINE 1% 20 ML VIAL (10MG/ML) FOR IV START INTRADERMA ONE (09:06)
[2018-12-15] MEDS ORDERED: LACTATED RINGERS 1,000 ML IV ONE (09:06)
[2018-12-15 09:24] VITALS: RESP 18; TEMP 98.6
--- NOTE | 2018-12-15 10:11 | P.PCN ---
Date of Procedure: 12/15/18 Procedure(s) Performed: PREOPERATIVE DIAGNOSIS: Thoracic radiculopathy POSTOPERATIVE DIAGNOSIS: Thoracic radiculopathy. PROCEDURE 1. Thoracic epidural steroid injection under fluoroscopic guidance at the T9-10 level. ( Right paramedian approache ) 2. Thoracic epidurogram. ANESTHESIA: Local with 1% lidocaine 3 ml and , moderate sedation with intravenous Versed 2 mg ,and fentanyle 50 Mcg EBL: Minimal PROCEDURE INDICATION: The patient with mid back pain and radiculitis symptoms unresponsive to conservative treatment. Fluoroscopy was used to optimize visualization of the needle placement and to maximize safety. PROCEDURE DESCRIPTION / TECHNIQUE: The patient was seen and identified in the preoperative area. Risks, benefits , complications including but not limited to infections ,bleeding ,allergic reaction to the medications ,nerve damage and not complete pain releife , and alternatives were discussed with the patient. The patient agreed to proceed with the procedure and signed the consent. IV was started, and vital signs were stable. Patient was taken to the OR and time out was completed. The patient was placed in the prone position on procedure table and a pillow was placed under the abdomen to reduce lumbar lordosis. The thoracic area was prepped and draped in the usual sterile fashion.ere closely monitored during the procedure. Conscious sedation was used during the procedure to decrease patients anxiety. Vital signs was monitered during the entire procedure. Using anterior-posterior fluoroscopy, the T9-10 interlaminar space was identified and the skin over this site was marked and then infiltrated with 1% lidocaine subcutaneously. Subsequently, a 20-gauge Tuohy epidural needle was inserted and advanced toward the epidural space using the ``Loss of resistance technique and guided by AP and lateral fluoroscopy. The correct needle position in the epidural space was verified with the injection of 2 mL of the water soluble contrast dye Isovue 200 contrast and observing an excellent epidurogram with the epidural spread of the dye, after negative aspiration for blood and CSF and in the absence of paresthesias. Again after negative aspiration, a 6 ml mixture containing 80 mg of Depo-medrol , and 2 ml of preservative free Normal Saline, and 2 ml of preservative free lidocaine 1% solution was injected and a washout of epidurogram was seen. Needle was withdrawn intact, skin was cleansed, and bandages were applied. COMPLICATIONS: None DISPOSITION / PLANS: The patient was placed in a supine position and transferred to the recovery area in a stable condition for observation. There was no evidence of lower extremity motor or sensory deficit after the procedure. Patient was discharged from the recovery room after meeting discharge criteria. Home discharge instructions were given to the patient by the staff. The patient was reexamined prior to discharge. The patient will schedule a follow up in the clinic in 2-4 weeks.
[2018-12-15] MEDS ORDERED: IV FLUID CONTINUATION 1,000 ML IV ONE (10:14)
--- NOTE | 2018-12-15 10:20 | FL ---
EXAMINATION TYPE: FL guided pain mgmt statistic DATE OF EXAM: 12/15/2018 CLINICAL HISTORY: Mid back pain. TECHNIQUE: Fluoroscopy. COMPARISON: None. FINDINGS: Fluoroscopic guidance was provided during pain relief procedure performed by Dr. Allred . A total of 20 seconds of fluoroscopic time was utilized during the procedure and two spot images a re acquired. Images acquired shows needle localization near lower thoracic spine. IMPRESSION: As Above.
[2018-12-15 10:39] VITALS: BP 130/58; PULSE 69
== END 2018-12-15 11:10 | disposition home or self-care (01) ==
LOC: ORPAIN 08:25
PROVIDERS: ATTEND Specialist
DX: M54.14 Radiculopathy, thoracic region (principal)
CPT/HCPCS: 62321; J2250; J1030; J3010; Q9966; 99152

== ENCOUNTER 2018-12-29 07:18 | Day surgery (SDC) | payer MEDICARE ==
[2018-12-28 10:51] VITALS: BMI 40.8
[2018-12-29 07:34] VITALS: RESP 16; TEMP 97.5
[2018-12-29] MEDS: LIDOCAINE 1% 20 ML VIAL (10MG/ML) FOR IV START INTRADERMA ONE (07:51)
[2018-12-29] MEDS: LACTATED RINGERS 1,000 ML IV ONE (07:51)
--- NOTE | 2018-12-29 09:07 | P.PCN ---
Date of Procedure: 12/29/18 Surgeon: Rebeca Schneider Pathology: none sent Condition: stable Disposition: PACU Description of Procedure: PREOPERATIVE DIAGNOSIS: Thoracic radiculopathy POSTOPERATIVE DIAGNOSIS: Thoracic radiculopathy. PROCEDURE 1. Thoracic epidural steroid injection under fluoroscopic guidance at the T9-10 level. ( Right paramedian approach ) 2. Thoracic epidurogram. ANESTHESIA: Local with 1% lidocaine 3 ml and , moderate sedation with intravenous Versed 2 mg ,and fentanyle 100 Mcg EBL: Minimal PROCEDURE INDICATION: The patient with mid back pain and radiculitis symptoms unresponsive to conservative treatment. Fluoroscopy was used to optimize visualization of the needle placement and to maximize safety. PROCEDURE DESCRIPTION / TECHNIQUE: The patient was seen and identified in the preoperative area. Risks, benefits , complications including but not limited to infections ,bleeding ,allergic reaction to the medications ,nerve damage and not complete pain releife , and alternatives were discussed with the patient. The patient agreed to proceed with the procedure and signed the consent. IV was started, and vital signs were stable. Patient was taken to the OR and time out was completed. The patient was placed in the prone position on procedure table and a pillow was placed under the abdomen to reduce lumbar lordosis. The thoracic area was prepped and draped in the usual sterile fashion.ere closely monitored during the procedure. Conscious sedation was used during the procedure to decrease patients anxiety. Vital signs was monitered during the entire procedure. Using anterior-posterior fluoroscopy, the T9-10 interlaminar space was identified and the skin over this site was marked and then infiltrated with 1% lidocaine subcutaneously. Subsequently, a 20-gauge Tuohy epidural needle was inserted and advanced toward the epidural space using the ``Loss of resistance technique and guided by AP and lateral fluoroscopy in the right paramedian approach. The correct needle position in the epidural space was verified with the injection of 2 mL of the water soluble contrast dye Isovue 200 contrast and observing an excellent epidurogram with the epidural spread of the dye, after negative aspiration for blood and CSF and in the absence of paresthesias. Again after negative aspiration, a 6 ml mixture containing 40 mg of Kenolog , and 2 ml of preservative free Normal Saline, and 2 ml of preservative free lidocaine 1% solution was injected and a washout of epidurogram was seen. Needle was withdrawn intact, skin was cleansed, and bandages were applied. COMPLICATIONS: None DISPOSITION / PLANS: The patient was placed in a supine position and transferred to the recovery area in a stable condition for observation. There was no evidence of lower extremity motor or sensory deficit after the procedure. Patient was discharged from the recovery room after meeting discharge criteria. Home discharge instructions were given to the patient by the staff. The patient was reexamined prior to discharge. The patient will schedule a follow up in the clinic in 2-4 weeks.
[2018-12-29] MEDS: IV FLUID CONTINUATION 1,000 ML IV ONE (09:09)
--- NOTE | 2018-12-29 09:16 | FL ---
EXAMINATION TYPE: FL guided pain mgmt statistic DATE OF EXAM: 12/29/2018 CLINICAL HISTORY: Mid back pain. TECHNIQUE: Fluoroscopy. COMPARISON: None. FINDINGS: Fluoroscopic guidance was provided during pain relief procedure performed by Dr. Schneider . A total of approximately 5 seconds of fluoroscopic time was utilized during the procedure and 0 spo t images are saved to PACS. IMPRESSION: As Above.
[2018-12-29 09:26] VITALS: BP 142/79; PULSE 67
== END 2018-12-29 09:52 | disposition home or self-care (01) ==
LOC: ORPAIN 07:18
PROVIDERS: ATTEND Anesthesiology
DX: M54.14 Radiculopathy, thoracic region (principal); E03.9 Hypothyroidism, unspecified; Z88.0 Allergy status to penicillin; Z79.82 Long term (current) use of aspirin; Z91.048 Other nonmedicinal substance allergy status
CPT/HCPCS: 62321; J2250; J3301; J3010; Q9966; 99152

== ENCOUNTER → 2019-01-14 | Outpatient (CLI) | payer MEDICARE ==
[2019-01-14 12:22] VITALS: BP 166/88; PULSE 56; RESP 16
--- NOTE | 2019-01-14 12:49 | P.PN ---
Subjective Progress Note Date: 01/14/19 This is a 68-year-old gentleman with history of chronic lower back pain and mid thoracic pain. The pain also radiates down his right leg to the knee level with occasional numbness and tingling in the right side. He failed to respond to multiple injections previously including lumbar transforaminal epidural steroid injection and thoracic interlaminar epidural steroid injection also he failed to respond to diagnostic lumbar medial branch block previously. This pain is too severe even though he takes 3 pills of Percocet every day along with 2400 mg of Neurontin. He denies any bowel or bladder dysfunction. He does have weakness in the right leg but has been stable with no progression. Today, pt denies new-onset weakness, bowel/bladder incontinence, or any other signs or symptoms of cauda equina syndrome. There are no signs of acute intoxication, and no indications of medication diversion or overuse. In addition to above, 13-point review of systems is also negative for chest pain , shortness of breath, changes in vision, changes in hearing, new onset weakness , abdominal pain, diarrhea, extreme fatigue, malaise, fever, skin changes, homicidal or suicidal ideation, or bowel or bladder incontinence. Vital Signs: Reviewed in EMR Gen: AAOx3, NAD HEENT: PERRLA,hearing grossly normal Pulm: resp unlabored,CTA Heart:S1,S2, No Mur Neck: supple, trachea midline Neuro exam of the lower extremities: Reduced right hip flexion to 4 out of 5 and right knee flexion and extension to 4 out of 5. Reduced but symmetrical knee reflexes and absent ankle reflexes bilaterally. Range of motion of the lumbar spine: Reduced Tenderness in the paravertebral musculature: Positive bilaterally in the lumbar area Neuro: CN II-XII grossly intact, Imaging: Reviewed in EMR/chart Assessment: Lumbar spondylosis without myelopathy Right lumbar radiculopathy Thoracic radiculopathy Morbid obesity Plan: 1. Explanation: Opioid and psychological risk scores were reviewed. Diagnoses , prognoses, and multiple treatment options including but not limited to physical therapy, interventional therapies, adjuvant medical therapies, narcotic medication therapies, and surgery were discussed with the patient and all questions were answered to the patient's satisfaction. 2. Opioid agreement: Signed with the patient and the patient is warned not to use opioids while driving or before driving and not to combine opioids with benzodiazepines or alcohol. 3. Counseling: The patient was counseled extensively on SMOKING CESSATION, BODY MASS INDEX, EXERCISE. Specifically, the patient was instructed regarding the importance of smoking cessation, obesity, and exercise in the context of both chronic pain and overall health. 4. Procedures: None at this time 5. Consultations: None 6. Investigations: None 7. Medications: DC Percocet and start oxycodone 15 mg 3 times a day, DC Zanaflex and start Flexeril 5 mg at night, continue Neurontin 2400 mg a day 8. Disposition: Return to clinic in 2 months. 9. Maps were reviewed and were appropriate. PQRS measures: 1-Patient's medications are documented in the chart. 2-Tobacco use is negative, counseling given 3-Patient has had a pneumococcal vaccine. 4-Advanced care planning discussed, patient unable to give 5-Opioid contract signed with the patient. 6-Pain positive, follow-up visit or procedure scheduled 7-Patient's blood pressure measured and documented the patient will follow up with his primary care physician for elevated blood pressure. 8-Patient's weight was measured, and body mass index ABOVE the normal limits, and counseling was done. Patient instructed to follow up with PCP. 9-Patient WAS NOT identified as an unhealthy alcohol user. Controlled Substance Measures Is patient prescribed a controlled substance at discharge?: Yes When asked, does pt state using other controlled substances?: No If prescribed controlled substance>3 days was MAPS reviewed?: Yes If Rx opioid, was Start Talking consent form obtained?: Yes If opioid is for acute pain is fill amount 7 days or less?: No Was information provided regarding opioid addiction?: Yes Objective - Vital Signs Vital signs: Vital Signs Temp Pulse 56 L 01/14/19 12:09 Resp 16 01/14/19 12:09 BP 166/88 01/14/19 12:09 Pulse Ox 97 01/14/19 12:09 Intake & Output 01/13/19 01/14/19 01/14/19 18:59 06:59 18:59 Weight 125.645 kg
== END | disposition home or self-care (01) ==
LOC: PNWHC3 11:44
PROVIDERS: ATTEND Anesthesiology
DX: G89.29 Other chronic pain (principal); M47.26 Other spondylosis with radiculopathy, lumbar region; E66.01 Morbid (severe) obesity due to excess calories; Z68.41 Body mass index [BMI] 40.0-44.9, adult
CPT/HCPCS: 99211

== ENCOUNTER → 2019-03-11 | Outpatient (CLI) | payer MEDICARE ==
[2019-03-11 13:22] VITALS: BP 142/98; PULSE 79; RESP 16
--- NOTE | 2019-03-11 13:38 | P.PN ---
Subjective Progress Note Date: 03/11/19 This is follow-up visit for this patient with a history of severe and chronic mid ,and low back pain secondary to lumbar degenerative disease, and patient had the also mid back pain with radiation to the right abdominal area, diagnosed with thoracic radiculopathy, and patient had compression fracture of the thoracic spine, he continued to have severe mid back pain with radiation to the right side abdominal area, he had no benefit from thoracic epidural steroid injections done x2 , intensity of the pain interfering with the quality of life, the pain is constant and increased with any movement, radiated from the mid back area towards the lateral and anterior side of the right chest and abdomen The patient currently on oxycodone 15 mg every 8 hours, Neurontin 600 mg every 6 hours, Flexeril 5 mg daily at bedtime, , he was evaluated by a spine surgeon Dr. Hilliard , and he recommended no surgical interventions because patient is high risk for surgery. Patient denies any side effect of the medication , patient denies any excessive drowsiness or sleepiness, patient denies any suicidal ideation, Patient reported that the current medication is helping to control the pain and improve the activity of daily livings, Patient denies any motor or sensory deficit, denies any change in the bowel movement or urination, patient denies any fever or night sweats. Patient here today for follow-up visit and medication refill Physical Examinations : 1-Constitutiona : Cooperative , not in acute distress . 2-HEENT : nech ; supple , no Lymphadenopathy , normal thyroid size . eyes : no ptosis , no icterus, no photophobia . ENT : normal of hearing , normal oropharynx , no Thrush . 3- Respiratory : Chest clear to auscultations Bilaterally , no wheezing , no Rhonchi . 4- Cardiovascular : regular rate and rhythem , S1 , S2 , no S3 , no S4. 5- Gastrointestinal : abdomen soft no tenderness , bowel sounds , no organomegally . 6- Genitourinary : Defferred . 7- neurologic : Cranial nerve II to XII intact , no focal neurological deffecit . 8-psychatric : alert , oriented X 3 , appropriate affect , intact judgment and insight . 9-Lymphatic : no Lymphadenopathy . 10- musculoskeltal : Flexion and extension of the thoracic spine limited secondary to pain Dysesthesia at the dermatomal distribution of T8 9 10 on the right side Lumber spine moter stegnth lower extremities ,thigh and legs 5/5 Right side , 5/5 Left side deep tendon reflexes : normal Knee Jerk , normal ankle Jerk positive lumber facet Loading Test Range of motion of the lumbar spine Flexion 30 degrees, extension 10 degrees strait leg raising test, positive at 30 degree Fabere test positive RT and positive LT . Assessment and Plan Plan: Assessment and plan= Thoracic radiculopathy right-sided T9 ,T10 level Intercostal neuralgia Compression fractures thoracic spine chronic low back pain secondary to lumbar degenerative disc disease , lumbar spondylosis with lumbar facet arthropathy . Patiens had no benefits from thoracic epidural steroid injections, patient is not a good surgical candidate chronic and current use of high-risk medication (opioids) Patient denies any side effects of the current pain medication and the current treatment/medication helping the patient to do activity of daily living , Diagnoses, prognosis, treatment options, including but not limited to physical therapy, medication management, interventional therapies, and surgery, were discussed with the patient All the questions answered The narcotic consent was signed and patient agreed and understood the side effects and complications of opioid treatment. Patient signed the narcotic agreement, and was orally counseled, not to overuse, not to abuse, not to Divert , not tp sell pain medication, and to take it as prescribed only, Patient was counseled not to drive or operate heavy equipment while using narcotic medication, and advised not to use alcohol or any Illicit drugs while using the narcotis, understanding that lack of compliance with any of the above instructions, will likely to cause discharge from, the pain service, not to renew his narcotic prescriptions Medication managements= patient will be given prescription refills for oxycodone 15 every 8 hours dispense 90 with 1 refill, Neurontin 600 mg every 6 hours dispense 120 with one refill Flexeril 5 mg daily at bedtime MAPS reviewed and it was appropriate Interventions= she could benefit from intercostal nerve block right side T8, T9 ,T10 under fluoroscopy guidance , PQRS Measure Charge Sheet Measure #130: Documentation of Current Meds in Medical Chart: Patient's medications documented in chart Measure #226: Tobacco Use: Screen & Cessation Intervention: Pt screened for tobacco use AND intervention given Measure #111: Pneumonia Vaccination: Pneumococcal vaccine administered or previously received Measure #47: Advance Care Plan: Advance care planning discussed & documented, pt chose/unable to give Measure #412: Opioid Treatment Agreement: Documented signed opioid trtmnt agreemnt min once during opioid trtmnt Measure #408: Opioid Therapy Follow-up Evaluation: Patient had f/u eval minimum every 3 months during opioid therapy Measure #317: Preventitive Care & Scrn High Bld Press & F/U: elevated blood pressure, f/u with her primary care Measure #128: Body Mass Index (BMI) Screening & Follow-up: BMI documented ABOVE normal parameters - f/u documented Measure #131: Pain Assessment & Follow-up: Pain positive & plan documented, Follow-up scheduled Measure #431: Unhealthy Alcohol Use Preventative Care & Scrn: Patient not identified as an unhealthy alcohol user PQRS Narrative: - Controlled Substance Measures Is patient prescribed a controlled substance at discharge?: Yes When asked, does pt state using other controlled substances?: No If prescribed controlled substance>3 days was MAPS reviewed?: Yes If Rx opioid, was Start Talking consent form obtained?: Yes If opioid is for acute pain is fill amount 7 days or less?: No Was information provided regarding opioid addiction?: Yes Objective - Vital Signs Vital signs: Vital Signs Temp Pulse 79 03/11/19 12:40 Resp 16 03/11/19 12:40 BP 142/98 03/11/19 12:40 Pulse Ox 97 03/11/19 12:40 Intake & Output 03/10/19 03/11/19 03/11/19 18:59 06:59 18:59 Weight 125.191 kg
== END | disposition home or self-care (01) ==
LOC: PNWHC3 12:21
PROVIDERS: ATTEND Specialist
DX: G89.29 Other chronic pain (principal); M48.54XA Collapsed vertebra, not elsewhere classified, thoracic region, initial encounter for fracture; M51.36 Other intervertebral disc degeneration, lumbar region; M47.816 Spondylosis without myelopathy or radiculopathy, lumbar region; M46.86 Other specified inflammatory spondylopathies, lumbar region; M54.14 Radiculopathy, thoracic region; Z79.891 Long term (current) use of opiate analgesic; Z79.899 Other long term (current) drug therapy
CPT/HCPCS: 99211

== ENCOUNTER 2019-03-22 05:54 | Day surgery (SDC) | payer MEDICARE ==
[2019-03-18 10:16] VITALS: BMI 41.3
[~2019-03-22 05:54] MED LIST changes: +LACTATED RINGERS 1,000 ML IV SCH; -SODIUM CHLORIDE 0.9% 500 ML 500 ML IV SCH
[2019-03-22 06:48] VITALS: RESP 16; TEMP 97.3
[2019-03-22] MEDS ORDERED: LIDOCAINE 1% 20 ML VIAL (10MG/ML) FOR IV START INTRADERMA ONE (06:48)
[2019-03-22] MEDS ORDERED: ONDANSETRON 4 MG/2 ML VIAL IVP ONE (06:50)
--- NOTE | 2019-03-22 07:30 | P.PCN ---
Date of Procedure: 03/22/19 Procedure(s) Performed: PROCEDURE: right side T8, T,9T10, Intercostal nerve block under fluoroscopic guidance. PREOP DIAGNOSIS:1-Right Intercostal neuralgia. 2-thoracic radiculopathy. 3- compression fracture thoracic spine POSTOP DIAGNOSIS: Same as preop diagnosis ANESTHESIA: moderate sedation with IV Versed2 mg , and Fentanyl 100mcg EBL: Minimal COMPLICATION: None. IV FLUIDS: 100 mL of normal saline. PROCEDURE INDICATION: Chronic right-sided thoracic pain secondary to intercostals neuralgia who had more than 50% pain relief from a prior diagnostic block with Bupivacaine. PROCEDURE DESCRIPTION: The patient was seen and identified in the preoperative area. Risks, benefits, complications, and alternatives were discussed with the patient. The patient agreed to proceed with the procedure and signed the consent. IV was started. Vital signs were stable throughout the procedure. The patient was taken to the procedure room and was placed in the prone position on the procedure table. The thoracic area was prepped and draped in the usual sterile fashion. Critical pause was taken. Using anteroposterior fluoroscopy, the T8 rib on the right side was identified. An area approximately 2 inches lateral to the vertebral midline was localized under fluoroscopy. Subsequently, a 25-gauge, 3-1/2-inch needle was advanced under fluoroscopy towards the inferior aspect of the rib. After making contact with the rib, the needle was walked off and carefully slipped inferiorly off the rib. After negative aspiration and with the absence of paresthesias, 2 ml of Ropivacaine 0.5 % . Isovue-200 4 ml was injected one to one and a half and then at each level to rule out intravascular injection , it showed that there is no intravascular injection under was appropriate spread of the Isovue , The needle was subsequently removed while being flushed with Ropivacaine 0.5% and the same procedure was repeated at the levels of T9, and T10 on the Right Side (total of 6 ML of ropivacaine was used which was mixed with 40 mg of Depo-Medrol At the end of the procedure, skin was cleansed, and bandages were applied. Patient denied any shortness of breath after the procedure. Lungs auscultation showed clear and equal air entry bilaterally after the procedure. The patient tolerated the procedure well without complications. Patient was observed in the recovery area until he/she met all discharge criteria. Chest x-ray was ordered to rule out pneumothorax after the procedure
[2019-03-22 07:50] VITALS: PULSE 74
--- NOTE | 2019-03-22 08:08 | XR ---
EXAMINATION TYPE: XR chest 1V portable DATE OF EXAM: 03/22/2019 COMPARISON: None INDICATION: Pneumothorax, post management TECHNIQUE: Single frontal view of the chest is obtained. FINDINGS: The heart size is normal. The pulmonary vasculature is normal. There is some minimal infiltrate just above the left diaphragm. Some mild atelectasis may be present. No pneumothorax is evident on the current upright film. Follow-up can be performed as clinically ind icated. IMPRESSION: 1. Minimal atelectasis above the left diaphragm. 2. No pneumothorax. Follow-up as clinically indicated.
[2019-03-22 08:14] VITALS: BP 123/82
[2019-03-22] MEDS ORDERED: IV FLUID CONTINUATION 1,000 ML IV ONE (08:20)
--- NOTE | 2019-03-22 10:18 | FL ---
Fluoroscopy INDICATION: Pain FINDINGS: Fluoroscopy time: 23 seconds. Images obtained: 2. IMPRESSIONS: 1. Documentation of fluoroscopy.
--- NOTE | 2019-03-23 12:29 | P.PN ---
Progress Note - Text Progress Note Date: 03/23/19 This is a 68 years old male, yesterday on 03/22/2019 , we have done right side intercostal nerve block on T8, T9, T10, under fluoroscopy guidance, today during the follow-up phone calls, patient reported that he had a good result after the intercostal nerve block but he feels that his pain still pain higher from the level where we did the block, for this reason, next procedure, I recommend to do the intercostal nerve block T7 ,T8,T9,T10 , hopefully this will help him more
== END 2019-03-22 08:24 | disposition home or self-care (01) ==
LOC: ORPAIN 05:54
PROVIDERS: ATTEND Specialist
DX: G89.29 Other chronic pain (principal); G58.8 Other specified mononeuropathies; M54.14 Radiculopathy, thoracic region; M48.54XA Collapsed vertebra, not elsewhere classified, thoracic region, initial encounter for fracture; I10 Essential (primary) hypertension; J44.9 Chronic obstructive pulmonary disease, unspecified; G47.33 Obstructive sleep apnea (adult) (pediatric); E03.9 Hypothyroidism, unspecified; Z88.0 Allergy status to penicillin; Z91.048 Other nonmedicinal substance allergy status; Z98.1 Arthrodesis status; Z86.73 Personal history of transient ischemic attack (TIA), and cerebral infarction without residual deficits
CPT/HCPCS: 71045; 64421; J2250; J1030; J2405; J3010; Q9966; 99152

== ENCOUNTER 2019-04-05 07:14 | Day surgery (SDC) | payer MEDICARE ==
[2019-03-31 16:13] VITALS: BMI 42.1
[2019-04-05 07:59] VITALS: RESP 16; TEMP 97.7
[2019-04-05] MEDS ORDERED: LIDOCAINE 1% 20 ML VIAL (10MG/ML) FOR IV START INTRADERMA ONE (08:04)
[2019-04-05] MEDS ORDERED: ONDANSETRON 4 MG/2 ML VIAL IVP ONE (08:11)
--- NOTE | 2019-04-05 09:07 | P.PCN ---
Date of Procedure: 04/05/19 Procedure(s) Performed: PROCEDURE: right side ,T7 ,T8, T,9, T10, Intercostal nerve block under fluoroscopic guidance. PREOP DIAGNOSIS:1-Right Intercostal neuralgia. 2-thoracic radiculopathy. 3- compression fracture thoracic spine POSTOP DIAGNOSIS: Same as preop diagnosis ANESTHESIA: moderate sedation with IV Versed 2 mg , and Fentanyl 100mcg EBL: Minimal COMPLICATION: None. IV FLUIDS: 100 mL of normal saline. PROCEDURE INDICATION: Chronic right-sided thoracic pain secondary to intercosta ls neuralgia who had more than 50% pain relief from a prior diagnostic block with Bupivacaine. PROCEDURE DESCRIPTION: The patient was seen and identified in the preoperative area. Risks, benefits, complications, and alternatives were discussed with the patient. The patient agreed to proceed with the procedure and signed the consent. IV was started. Vital signs were stable throughout the procedure. The patient was taken to the procedure room and was placed in the prone position on the procedure table. The thoracic area was prepped and draped in the usual sterile fashion. Critical pause was taken. Using anteroposterior fluoroscopy, the T7 rib on the right side was identified. An area approximately 2 inches lateral to the vertebral midline was localized under fluoroscopy. Subsequently, a 25-gauge, 3-1/2-inch needle was advanced under fluoroscopy towards the inferior aspect of the rib. After making contact with the rib, the needle was walked off and carefully slipped inferiorly off the rib. After negative aspiration and with the absence of paresthesias, 2 ml of Ropivacaine 0.5 % . Isovue-200 6 ml was injected one to one and a half and then at each level to rule out intravascular injection , it showed that there is no intravascular injection under was appropriate spread of the Isovue , The needle was subsequently removed while being flushed with Ropivacaine 0.5% and the same pro cedure was repeated at the levels of ,T8 ,T9, and T10 on the Right Side (total of 8 ML of ropivacaine was used which was mixed with 40 mg of Depo-Medrol At the end of the procedure, skin was cleansed, and bandages were applied. Patient denied any shortness of breath after the procedure. Lungs auscultation showed clear and equal air entry bilaterally after the procedure. The patient tolerated the procedure well without complications. Patient was observed in the recovery area until he/she met all discharge criteria. Chest x-ray was ordered to rule out pneumothorax after the procedure
[2019-04-05] MEDS ORDERED: IV FLUID CONTINUATION 1,000 ML IV ONE (09:09)
--- NOTE | 2019-04-05 09:18 | FL ---
EXAMINATION TYPE: FL guided pain mgmt statistic DATE OF EXAM: 04/05/2019 HISTORY: Pain 17sec fluoro time,2 images scanned
[2019-04-05 09:28] VITALS: BP 146/80; PULSE 79
--- NOTE | 2019-04-05 09:47 | XR ---
EXAMINATION TYPE: XR chest 1V portable DATE OF EXAM: 04/05/2019 HISTORY: Shortness of breath. COMPARISON: 03/22/2019 TECHNIQUE: Single view of the chest is submitted. FINDINGS: Demonstrated are scattered senescent parenchymal change. There is no evidence for focal infiltrate. The heart is stable. Hilar and mediastinal structures are within normal limits. Degenerative changes are seen of the dorsal spine. IMPRESSION: 1. Chronic changes without evidence for acute pulmonary disease.
== END 2019-04-05 10:00 | disposition home or self-care (01) ==
LOC: ORPAIN 07:14
PROVIDERS: ATTEND Specialist
DX: G58.8 Other specified mononeuropathies (principal); M48.54XA Collapsed vertebra, not elsewhere classified, thoracic region, initial encounter for fracture; E03.9 Hypothyroidism, unspecified; Z88.0 Allergy status to penicillin; Z91.09 Other allergy status, other than to drugs and biological substances
CPT/HCPCS: 71045; 64421; J2250; J1030; J2405; J3010; Q9966; 99152

== ENCOUNTER → 2019-05-06 | Outpatient (CLI) | payer MEDICARE ==
[2019-05-06 12:10] VITALS: BP 154/84; PULSE 97; RESP 18
--- NOTE | 2019-05-06 12:54 | P.PAINPG ---
Subjective Progress Note Date: 05/06/19 Objective - Vital Signs Vital signs: Vital Signs Temp Pulse 97 05/06/19 12:04 Resp 18 05/06/19 12:04 BP 154/84 05/06/19 12:04 Pulse Ox 97 05/06/19 12:04 Intake & Output 05/05/19 05/06/19 05/06/19 18:59 06:59 18:59 Weight 125.645 kg - Exam General: Awake and alert oriented 3 no distress Respiratory exam: No audible wheezing no accessory muscle usage Cardiovascular exam: regular rate, palpable bilateral pulses, no lower extremity edema Abdominal exam: No distention nontender to palpation Cervical spine: Normal alignment, Spurling's negative, facet loading negative, Financial Reporting Specialist strength is 5/5, iqbal negative Thoracic spine: Tenderness palpation of the right scapular area and subscapular area. He has tenderness palpation over the rib cage anteriorly and over the flank. Pain is over the lower border of the scapular spine. There is no bruising, there is no fluctuance, there is no erythema Lumbar spine: Loss of lumbar lordosis, normal alignment, tender to palpation over bilateral paraspinal muscles, facet loading is positive bilaterally. Straight leg raise is negative. Limited range of motion due to pain with flexion, extension and side bending. Neuro exam: Normal sensation in bilateral upper extremities, deep tendon reflexes are 2+ bilateral upper extremities. Normal sensation in bilateral lower extremities. Deep tendon reflexes are 2+ in lower extremities Psych exam: Cooperative, appropriate mood Assessment and Plan Assessment: Intercostal neuralgia Vertebral fractures Plan: Maverick reports that he did exceptionally well with the intercostal nerve blocks at the levels of T7, T8, T9, T10. He reports he had about 1 week's relief. He would like to move forward with the radiofrequency ablation those levels to offer him long-term relief. He is very comfortable with the amount of medications he is on and denies any side effects. He currently uses oxycodone 15 mg 2-3 times per day. He does have constipation at times and is using stool softeners with good relief. Maps was checked on today's visit, opioid start ta lking form is on the chart, urine drug screens have been appropriate, SOAP score is on the chart. PQRS Measure Charge Sheet Measure #130: Documentation of Current Meds in Medical Chart: Patient's medications documented in chart Measure #226: Tobacco Use: Screen & Cessation Intervention: Pt screened for tobacco use AND intervention given Measure #111: Pneumonia Vaccination: Pneumococcal vaccine administered or previously received Measure #47: Advance Care Plan: Advance care planning discussed & documented, plan or surrogate given Measure #412: Opioid Treatment Agreement: Documented signed opioid trtmnt agreemnt min once during opioid trtmnt Measure #408: Opioid Therapy Follow-up Evaluation: Patient had f/u eval minimum every 3 months during opioid therapy Measure #317: Preventitive Care & Scrn High Bld Press & F/U: Normal blood pressure, f/u not required Measure #128: Body Mass Index (BMI) Screening & Follow-up: BMI documented ABOVE normal parameters - f/u documented Measure #131: Pain Assessment & Follow-up: Pain positive & plan documented, Follow-up scheduled Measure #431: Unhealthy Alcohol Use Preventative Care & Scrn: Patient identified as unhealthy alcohol user; counseling given PQRS Narrative: Smoking Status Light tobacco smoker Narcotic Agreement Date Signed 10/02/17 Blood Pressure 154/84 Pain Intensity [Medial 8 Shoulder] Scale Used Numeric (1 - 10) Hx Alcohol Use (MH) No Home Medications: Ambulatory Orders Furosemide [Lasix] 40 mg PO DAILY 09/30/17 Levothyroxine Sodium [Synthroid] 100 mcg PO DAILY 09/30/17 Sertraline [Zoloft] 100 mg PO BID 09/30/17 Dexlansoprazole [Dexilant] 60 mg PO DAILY 11/04/17 Ranitidine HCl [Zantac] 150 mg PO DAILY PRN 11/04/17 Aspirin [Adult Low Dose Aspirin EC] 81 mg PO DAILY 04/13/18 Calcium 500 Mg 500 mg PO DAILY 04/13/18 Cholecalciferol [Vitamin D3] 2,000 unit PO DAILY 04/13/18 Laxative 1 dose PO DAILY PRN 04/13/18 Stool Softner 1 dose PO DAILY PRN 04/13/18 Gabapentin 600 mg PO QID #120 tablet 11/19/18 Testosterone Cypionate [Depo-Testosterone] 200 mg IM [id number] 11/19/18 Cyclobenzaprine [Flexeril] 5 mg PO HS 01/14/19 oxyCODONE HCL [oxyCODONE HCL (IR)] 15 mg PO Q8HR PRN 01/14/19 Controlled Substance Measures - Controlled Substance Measures Is patient prescribed a controlled substance at discharge?: Yes When asked, does pt state using other controlled substances?: No If prescribed controlled substance>3 days was MAPS reviewed?: Yes If Rx opioid, was Start Talking consent form obtained?: Yes If opioid is for acute pain is fill amount 7 days or less?: No Was information provided regarding opioid addiction?: Yes
== END | disposition home or self-care (01) ==
LOC: PNWHC3 11:47
PROVIDERS: ATTEND Hospitalist
DX: G58.8 Other specified mononeuropathies (principal); M48.54XS Collapsed vertebra, not elsewhere classified, thoracic region, sequela of fracture
CPT/HCPCS: 99211

== ENCOUNTER 2019-05-13 06:51 | Day surgery (SDC) | payer MEDICARE ==
[2019-05-10 15:00] VITALS: BMI 41.9
[2019-05-13 07:18] VITALS: TEMP 98.4
[2019-05-13] MEDS: LACTATED RINGERS 1,000 ML IV SCH ×2 (07:21→07:45)
[2019-05-13] MEDS ORDERED: LACTATED RINGERS 500 ML IV ONE (08:23)
[2019-05-13 08:26] VITALS: RESP 16
--- NOTE | 2019-05-13 08:27 | P.PCN ---
Date of Procedure: 05/13/19 Procedure(s) Performed: PROCEDURE: right side radiofrequency thermocoagulation of ,T7 ,T8, T,9, T10, Intercostal nerve block under fluoroscopic guidance. PREOP DIAGNOSIS:1-Right Intercostal neuralgia. 2-thoracic radiculopathy. 3- compression fracture thoracic spine POSTOP DIAGNOSIS: Same as preop diagnosis ANESTHESIA: moderate sedation with IV Versed 2 mg , and Fentanyl 100 mcg EBL: Minimal COMPLICATION: None. IV FLUIDS: 100 mL of normal saline. PROCEDURE INDICATION: Chronic right-sided thoracic pain secondary to intercostals neuralgia who had more than 50% pain relief from a prior diagnostic block with Bupivacaine. PROCEDURE DESCRIPTION: The patient was seen and identified in the preoperative area. Risks, benefits, complications, and alternatives were discussed with the patient. The patient agreed to proceed with the procedure and signed the consent. IV was started. Vital signs were stable throughout the procedure. The patient was taken to the procedure room and was placed in the prone position on the procedure table. The thoracic area was prepped and draped in the usual sterile fashion. Critical pause was taken. Using anteroposterior fluoroscopy, the T7 rib on the right side was identified. An area approximately 2 inches lateral to the vertebral midline was localized under fluoroscopy. Subsequently, a 20-gauge 100 mm RF needles was advanced under fluoroscopy towards the inferior aspect of the rib. After making contact with the rib, the needle was walked off and carefully slipped inferiorly off the rib. After negative aspiration and with the absence of paresthesias, and another needle placed at T8 and T9, and T10 on the right side, then we did the sensory testing at 50 Hz and 0-1 Volte and the motor testing at 2.5 Volts , there was only localized contractions in the back area and there was no radicular contractions, then after that 1ml of Isovue-200 6 ml was injected, one to one and a half , at each level to rule out intravascular injection , it showed that there is no intravascular injection ,and there was appropriate spread of the Isovue , Then Ropivacaine 0.5% 1 ml injected at each level , then the thermocoagulation done at 80C for 90 seconds , and after the thermocoagulation done I injected the block solution which is constitute of total of 8 ML of ropivacaine was used which was mixed with 40 mg of Depo-Medrol, 2 mL of the mixture injected at each level after negative aspiration At the end of the procedure, skin was cleansed, and bandages were applied. Patient denied any shortness of breath after the procedure. Lungs auscultation showed clear and equal air entry bilaterally after the procedure. The patient tolerated the procedure well without complications. Patient was observed in the recovery area until he/she met all discharge criteria. Chest x-ray was ordered to rule out pneumothorax after the procedure
[2019-05-13 08:40] VITALS: BP 142/92; PULSE 59
--- NOTE | 2019-05-13 08:42 | XR ---
EXAMINATION TYPE: XR chest 1V portable DATE OF EXAM: 05/13/2019 COMPARISON: 04/05/2019 HISTORY: Pneumothorax TECHNIQUE: Single frontal view of the chest is obtained. FINDINGS: There is no focal air space opacity, pleural effusion, or pneumothorax seen. The cardiac silhouette size is within normal limits. The osseous structures are intact. Heart is enlarged there is postsurgical change overlying cervical spine. Calcified lymph node or vascular calcification the left suprahilar region. Peripheral based nodule in the left not excluded. Technique limits exam. IMPRESSION: No sizable pneumothorax.
--- NOTE | 2019-05-13 08:54 | FL ---
EXAMINATION TYPE: FL guided pain mgmt statistic DATE OF EXAM: 05/13/2019 HISTORY: Flouroscopy time 27 seconds of fluoroscopy provided. IMPRESSION: 1. Fluoroscopy time.
== END 2019-05-13 09:03 | disposition home or self-care (01) ==
LOC: ORPAIN 06:51
PROVIDERS: ATTEND Specialist
DX: G58.0 Intercostal neuropathy (principal); M48.54XA Collapsed vertebra, not elsewhere classified, thoracic region, initial encounter for fracture; I10 Essential (primary) hypertension; E03.9 Hypothyroidism, unspecified; Z86.73 Personal history of transient ischemic attack (TIA), and cerebral infarction without residual deficits; Z88.0 Allergy status to penicillin; Z91.09 Other allergy status, other than to drugs and biological substances
CPT/HCPCS: 64620 ×4; 71045; J2250; J1030; J3010; 99152

== ENCOUNTER → 2019-05-26 | Outpatient (CLI) | payer MEDICARE ==
[2019-05-26 13:31] VITALS: BP 155/89; PULSE 82; RESP 18
--- NOTE | 2019-05-26 14:10 | P.PAINPG ---
Subjective Progress Note Date: 05/26/19 Principal diagnosis: Intercostal neuralgia, mechanical low back pain, compression fractures This is a pleasant 69-year-old man with a history of previous stroke as well as compression fractures and intercostal neuralgia. He recently underwent right intercostal radiofrequency ablation. He reports that this was extremely helpful reducing his intercostal chest pain however he does still have other pain and therefore he has not reduced his pain medication utilization. He does report some memory difficulties and therefore his lays out all of his medications for him. He denies any new onset of symptoms. He reports that his pain medications to work to help control his pain. Objective - Vital Signs Vital signs: Vital Signs Temp Pulse 82 05/26/19 13:25 Resp 18 05/26/19 13:25 BP 155/89 05/26/19 13:25 Pulse Ox 93 L 05/26/19 13:25 Intake & Output 05/25/19 05/26/19 05/26/19 18:59 06:59 18:59 Weight 125.645 kg - Exam General: The patient is alert and oriented. Patient is not sedated Patient answers all question appropriately. Cardiac: Heart is regular in rate and rhythm Respiratory: Clear to auscultation. No audible wheezes. Abdomen: Soft nontender nondistended. Musculoskeletal: Strength is normal bilaterally. Sensation is normal bilaterally. Straight leg raise is negative bilaterally. Neurological: Reflexes are preserved and symmetric bilaterally. No allodynia is present on his thoracic spine or ribs bilaterally. Assessment and Plan (1) Intercostal neuralgia Current Visit: Yes Status: Acute Code(s): G58.8 - OTHER SPECIFIED MONONEUROPATHIES SNOMED Code(s): 919670684 (2) Chronic radicular lumbar pain Current Visit: No Status: Acute Code(s): M54.16 - RADICULOPATHY, LUMBAR REGION; G89.29 - OTHER CHRONIC PAIN SNOMED Code(s): 50061093 (3) Degenerative lumbar spinal stenosis Narrative/Plan: Plan of Care 1. Medications: I will refill his oxycodone, Flexeril and gabapentin today. I have reviewed the patient's MAPS report and it reveals expected results. Patient has signed an opiate agreement as well as opiate consent for treatment in our clinic. They understand the risks and benefits of opiate medications. They are aware of the potential for addiction. 2. Interventions: Patient can follow up for repeat of radio frequency ablation for his intercostal nerves in the future. 3. Referrals: None 4. Testing: None 5. Follow-up: 2 months for medication management Current Visit: No Status: Acute Code(s): M48.061 - SPINAL STENOSIS, LUMBAR REGION WITHOUT NEUROGENIC BETTY SNOMED Code(s): 836626229 (4) Lumbar radicular pain Current Visit: No Status: Acute Code(s): M54.16 - RADICULOPATHY, LUMBAR REGION SNOMED Code(s): 530219869 PQRS Measure Charge Sheet Measure #130: Documentation of Current Meds in Medical Chart: Patient's medications documented in chart Measure #226: Tobacco Use: Screen & Cessation Intervention: Pt screened for tobacco use AND intervention given Measure #111: Pneumonia Vaccination: Pneumococcal vaccine administered or previously received Measure #47: Advance Care Plan: Advance care planning discussed & documented, plan or surrogate given Measure #412: Opioid Treatment Agreement: Documented signed opioid trtmnt agreemnt min once during opioid trtmnt Measure #408: Opioid Therapy Follow-up Evaluation: Patient had f/u eval minimum every 3 months during opioid therapy Measure #317: Preventitive Care & Scrn High Bld Press & F/U: Normal blood pressure, f/u not required Measure #128: Body Mass Index (BMI) Screening & Follow-up: BMI documented ABOVE normal parameters - f/u documented Measure #131: Pain Assessment & Follow-up: Pain positive & plan documented Measure #431: Unhealthy Alcohol Use Preventative Care & Scrn: Patient not identified as an unhealthy alcohol user PQRS Narrative: Smoking Status Light tobacco smoker Narcotic Agreement Date Signed 10/02/17 Blood Pressure 155/89 Pain Intensity [Right Upper 5 Back] Scale Used Numeric (1 - 10) Hx Alcohol Use (MH) No Home Medications: Ambulatory Orders Furosemide [Lasix] 40 mg PO DAILY 09/30/17 Levothyroxine Sodium [Synthroid] 100 mcg PO DAILY 09/30/17 Sertraline [Zoloft] 100 mg PO BID 09/30/17 Dexlansoprazole [Dexilant] 60 mg PO DAILY 11/04/17 Ranitidine HCl [Zantac] 150 mg PO DAILY PRN 11/04/17 Aspirin [Adult Low Dose Aspirin EC] 81 mg PO DAILY 04/13/18 Calcium 500 Mg 500 mg PO DAILY 04/13/18 Cholecalciferol [Vitamin D3] 2,000 unit PO DAILY 04/13/18 Laxative 2 tab PO DAILY 04/13/18 Stool Softner 2 dose PO DAILY 04/13/18 Gabapentin 600 mg PO QID #120 tablet 11/19/18 Testosterone Cypionate [Depo-Testosterone] 200 mg IM [id number] 11/19/18 Cyclobenzaprine [Flexeril] 5 mg PO HS 01/14/19 oxyCODONE HCL [oxyCODONE HCL (IR)] 15 mg PO Q8HR PRN 01/14/19 L.acidoph,Paracasei, B.lactis [Probiotic] 1 each PO DAILY 05/10/19 Controlled Substance Measures - Controlled Substance Measures Is patient prescribed a controlled substance at discharge?: Yes When asked, does pt state using other controlled substances?: No If prescribed controlled substance>3 days was MAPS reviewed?: Yes If Rx opioid, was Start Talking consent form obtained?: Yes
== END | disposition home or self-care (01) ==
LOC: PNWHC3 13:14
PROVIDERS: ATTEND Pain Medicine Pain Medicine
DX: M48.061 Spinal stenosis, lumbar region without neurogenic claudication (principal); M54.16 Radiculopathy, lumbar region; F17.290 Nicotine dependence, other tobacco product, uncomplicated; Z98.890 Other specified postprocedural states
CPT/HCPCS: 99211

== ENCOUNTER → 2019-07-21 | Outpatient (CLI) | payer MEDICARE ==
[2019-07-21 14:06] VITALS: BP 128/76; PULSE 80; RESP 16
--- NOTE | 2019-07-23 15:09 | P.PAINPG ---
Subjective Progress Note Date: 07/21/19 Principal diagnosis: Intercostal neuralgia, mechanical low back pain, compression fractures HPI: This is a pleasant 69-year-old man with a history of previous stroke as well as compression fractures and intercostal neuralgia. He recently underwent right thoracic radiofrequency ablation with good results however he does still have other sources of pain including upper back, shoulder, neck and arm on the right side and therefore he has not reduced his pain medication utilization. He does report some memory difficulties and therefore his lays out all of his medications for him. He denies any new onset of symptoms. He reports that his pain medications to work to help control his pain. He denies side effects from medications. He reports that he has been using magnets in his shoes and this has helped significantly with his low back pain. He is asking to be switched back from oxycodone to Percocet as the Percocet is significantly cheaper for him. Review of systems is negative for chest pain, shortness of breath, new onset weakness, numbness/tingling, abdominal pain, malaise, fever, night sweats, chills, homicidal or suicidal ideation, or bowel or bladder incontinence. Objective - Vital Signs Vital signs: Vital Signs Temp Pulse 80 07/21/19 14:03 Resp 16 07/21/19 14:03 BP 128/76 07/21/19 14:03 Pulse Ox 99 07/21/19 14:03 - Exam General: The patient is alert and oriented. Patient is not sedated Patient answers all question appropriately. Cardiac: No pedal edema Respiratory: No audible wheezes. Abdomen: nondistended. Musculoskeletal: Strength is normal bilaterally. Sensation is normal bilaterally. Neurological: Reflexes are preserved and symmetric bilaterally. No allodynia is present on his thoracic spine or ribs bilaterally. Assessment and Plan Plan: Assessment and Plan (1) Intercostal neuralgia (2) Chronic use of high-risk medications including opioids (3) Degenerative lumbar spinal stenosis, compression fractures Narrative/Plan: Plan of Care 1. Medications: I will refill his Flexeril and gabapentin today. I will switch him back from oxycodone to Percocet. We discussed dose reduction, and will red uce his dose from 10 mg to 7.5 mg 3 times a day when necessary. I have reviewed the patient's MAPS report and it reveals expected results. Patient has signed an opiate agreement as well as opiate consent for treatment in our clinic. They understand the risks and benefits of opiate medications. They are aware of the potential for addiction. 2. Interventions: Patient can follow up for repeat of radio frequency ablation for his intercostal nerves in the future. 3. Counseling: On smoking cessation and weight loss, as it pertains to chronic pain. 4. Testing: None 5. Follow-up: 2 months for medication management PQRS Measure Charge Sheet Measure #130: Documentation of Current Meds in Medical Chart: Patient's medications documented in chart Measure #226: Tobacco Use: Screen & Cessation Intervention: Pt screened for tobacco use AND intervention given Measure #47: Advance Care Plan: Advance care planning discussed & documented, pt chose/unable to give Measure #412: Opioid Treatment Agreement: Documented signed opioid trtmnt agreemnt min once during opioid trtmnt Measure #408: Opioid Therapy Follow-up Evaluation: Patient had f/u eval minimum every 3 months during opioid therapy Measure #317: Preventitive Care & Scrn High Bld Press & F/U: Normal blood pressure, f/u not required Measure #128: Body Mass Index (BMI) Screening & Follow-up: BMI documented ABOVE normal parameters - f/u documented Measure #131: Pain Assessment & Follow-up: Pain positive & plan documented, Follow-up scheduled Measure #431: Unhealthy Alcohol Use Preventative Care & Scrn: Patient not identified as an unhealthy alcohol user PQRS Narrative: Smoking Status Light tobacco smoker Narcotic Agreement Date Signed 10/02/17 Blood Pressure 128/76 Pain Intensity [Bilateral 8 Upper Back] Scale Used Numeric (1 - 10) Hx Alcohol Use (MH) No Home Medications: Ambulatory Orders Furosemide [Lasix] 40 mg PO DAILY 09/30/17 Levothyroxine Sodium [Synthroid] 100 mcg PO DAILY 09/30/17 Sertraline [Zoloft] 100 mg PO BID 09/30/17 Dexlansoprazole [Dexilant] 60 mg PO DAILY 11/04/17 Ranitidine HCl [Zantac] 150 mg PO DAILY PRN 11/04/17 Aspirin [Adult Low Dose Aspirin EC] 81 mg PO DAILY 04/13/18 Calcium 500 Mg 500 mg PO DAILY 04/13/18 Cholecalciferol [Vitamin D3] 2,000 unit PO DAILY 04/13/18 Laxative 2 tab PO DAILY 04/13/18 Stool Softner 2 dose PO DAILY 04/13/18 Gabapentin 600 mg PO QID #120 tablet 11/19/18 Testosterone Cypionate [Depo-Testosterone] 200 mg IM [id number] 11/19/18 Cyclobenzaprine [Flexeril] 5 mg PO HS 01/14/19 L.acidoph,Paracasei, B.lactis [Probiotic] 1 each PO DAILY 05/10/19 oxyCODONE-APAP 7.5-325MG [Percocet 7.5-325 mg] 1 tab PO Q8HR PRN 07/21/19 Controlled Substance Measures - Controlled Substance Measures Is patient prescribed a controlled substance at discharge?: Yes When asked, does pt state using other controlled substances?: No If prescribed controlled substance>3 days was MAPS reviewed?: Yes If Rx opioid, was Start Talking consent form obtained?: Yes If opioid is for acute pain is fill amount 7 days or less?: No Was information provided regarding opioid addiction?: Yes
== END | disposition home or self-care (01) ==
LOC: PNWHC3 13:23
PROVIDERS: ATTEND Anesthesiology
DX: G58.8 Other specified mononeuropathies (principal); M47.816 Spondylosis without myelopathy or radiculopathy, lumbar region; T14.8XXA Other injury of unspecified body region, initial encounter; Z72.0 Tobacco use; Z79.82 Long term (current) use of aspirin; Z79.891 Long term (current) use of opiate analgesic; Z79.899 Other long term (current) drug therapy
CPT/HCPCS: 99211

== ENCOUNTER → 2019-09-14 | Outpatient (CLI) | payer MEDICARE ==
[2019-09-14 14:19] VITALS: BP 148/80; PULSE 85; RESP 20
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
== END | disposition home or self-care (01) ==
LOC: PNWHC3 12:58
PROVIDERS: ATTEND Anesthesiology
DX: G58.8 Other specified mononeuropathies (principal); M48.061 Spinal stenosis, lumbar region without neurogenic claudication; M48.56XA Collapsed vertebra, not elsewhere classified, lumbar region, initial encounter for fracture; Z87.891 Personal history of nicotine dependence; Z98.890 Other specified postprocedural states; Z79.82 Long term (current) use of aspirin; Z79.899 Other long term (current) drug therapy
CPT/HCPCS: 80307; G0482; G0463; 99211

== ENCOUNTER → 2019-11-09 | Outpatient (CLI) | payer MEDICARE ==
[2019-11-09 12:33] VITALS: BP 161/98; PULSE 64; RESP 16
--- NOTE | 2019-11-10 11:15 | P.PAINPG ---
Subjective Progress Note Date: 11/09/19 This is follow-up visit for this patient with a history of severe and chronic right-sided chest wall pain and low back pain , stay close with right-sided intercostal neuralgia lumbar degenerative disc disease, lumbar facet arthropathy, lumbar radiculopathy May 2019 and we have done RFA of the right intercostal nerve T7,, T8, -T9, T10, and that helped his chest wall pain significantly We have done an interventional pain procedure diadgnostic medial branch block, he had no benefit from it, but this reason we did not do the radiofrequency, and we have done transforaminal lumbar epidural steroid injection, he had no benefit from it , he continued to have severe low back pain with radiation to the right lower extremity, currently is complaining of increased right-sided chest wall pain The patient currently on Percocet 5/325 every 8 hours, Neurontin 600 mg every 6 hours, Flexeril 5 mg daily at bedtime Patient denies any side effect of the medication , patient denies any excessive drowsiness or sleepiness, patient denies any suicidal ideation, Patient reported that the current medication is helping to control the pain and improve the activity of daily livings, Patient denies any motor or sensory deficit, denies any change in the bowel movement or urination, patient denies any fever or night sweats. Objective - Vital Signs Vital signs: Vital Signs Temp Pulse 64 11/09/19 12:24 Resp 16 11/09/19 12:24 BP 161/98 11/09/19 12:24 Pulse Ox - Exam Physical Examinations : -Constitutiona : Cooperative , not in acute distress . -HEENT : nech : supple , no Lymphadenopathy , normal thyroid size . : eyes : no ptosis , no icterus, no photophobia . : ENT : normal of hearing , normal oropharynx , no Thrush . - Respiratory : Chest clear to auscultations Bilaterally , no wheezing , no Rhonchi . - Cardiovascula : regular rate and rhythem , S1 , S2 , no S3 , no S4. - Gastrointestina : abdomen soft no tenderness , bowel sounds , no organomegally . - Genitourinary : Defferred . - neurologic : Cranial nerve II to XII intact , no focal neurological deffecit . -psychatric : alert , oriented X 3 , appropriate affect , intact judgment and insight . -Lymphatic : no Lymphadenopathy . - musculoskeltal : Thoracic Spine = allodynia on the right side of the chest wall , no skin rash no discharge Lumber spine moter stegnth lower extremities ,thigh and legs 5/5 Right side , 5/5 Left side deep tendon reflexes : normal Knee Jerk , normal ankle Jerk lumber facet Loading Test =positive Right , positive Left Range of motion of the lumbar spine Flexion 30 degrees, extension 10 degrees strait leg raising test = positive at degree Fabere test= positive Right , and positive LT . Assessment and Plan Plan: Assessment and plan= Chronic severe right-sided chest wall pain secondary to intercostal neuralgia, patient had good result after the RFA of the right intercostal nerve T7, T8, T9, T10 chronic low back pain secondary to lumbar degenerative disc disease , lumbar spondylosis with lumbar facet arthropathy . chronic and current use of high-risk medication (opioids) Patient denies any side effects of the current pain medication and the current treatment/medication helping the patient to do activity of daily living , Diagnoses, prognosis, treatment options, including but not limited to physical therapy, medication management, interventional therapies, and surgery, were discussed with the patient All the questions answered The narcotic consent was signed and patient agreed and understood the side effects and complications of opioid treatment. Patient signed the narcotic agreement, and was orally counseled, not to overuse, not to abuse, not to Divert , not tp sell pain medication, and to take it as prescribed only, Patient was counseled not to drive or operate heavy equipment while using narcotic medication, and advised not to use alcohol or any Illicit drugs while using the narcotis. understanding that lack of compliance with any of the above instructions, will likely to cause discharge from, the pain service, not to renew his narcotic prescriptions MAPS Reviwed and it was apropriate . Medication managements= patient will be given prescription refills for Percocet 5/325 every 8 hours dispense 90 with 1 refill Neurontin 600 mg every 6 hours dispense 120 with one refill and Flexeril 5 mg daily at bedtime dispensed 30 with one refill Interventions= patient will be good candidate to have repeat RFA of the right intercostal nerve ADALBERTO , Time with Patient: Less than 30 PQRS Measure Charge Sheet Measure #130: Documentation of Current Meds in Medical Chart: Patient's medications documented in chart Measure #226: Tobacco Use: Screen & Cessation Intervention: Pt screened for tobacco use AND intervention given Measure #111: Pneumonia Vaccination: Pneumococcal vaccine administered or previously received Measure #47: Advance Care Plan: Advance care planning discussed & documented, pt chose/unable to give Measure #412: Opioid Treatment Agreement: Documented signed opioid trtmnt agreemnt min once during opioid trtmnt Measure #408: Opioid Therapy Follow-up Evaluation: Patient had f/u eval minimum every 3 months during opioid therapy Measure #317: Preventitive Care & Scrn High Bld Press & F/U: Pre-hypertensive or hypertensive BP documented, pt will f/u with PCP Measure #128: Body Mass Index (BMI) Screening & Follow-up: BMI documented ABOVE normal parameters - f/u documented Measure #131: Pain Assessment & Follow-up: Pain positive & plan documented, Follow-up scheduled Measure #431: Unhealthy Alcohol Use Preventative Care & Scrn: Patient not identified as an unhealthy alcohol user PQRS Narrative: Smoking Status Light tobacco smoker Narcotic Agreement Date Signed 10/02/17 Blood Pressure 161/98 Pain Intensity [Back] 8 Scale Used Numeric (1 - 10) Hx Alcohol Use (MH) No Home Medications: Ambulatory Orders Furosemide [Lasix] 40 mg PO DAILY 09/30/17 Levothyroxine Sodium [Synthroid] 100 mcg PO DAILY 09/30/17 Sertraline [Zoloft] 100 mg PO BID 09/30/17 Dexlansoprazole [Dexilant] 60 mg PO DAILY 11/04/17 Aspirin [Adult Low Dose Aspirin EC] 81 mg PO DAILY 04/13/18 Cholecalciferol [Vitamin D3] 2,000 unit PO DAILY 04/13/18 Testosterone Cypionate [Depo-Testosterone] 200 mg IM [id number] 11/19/18 Multivitamins, Thera [Multivitamin (formulary)] 1 tab PO DAILY 11/04/19 Cyclobenzaprine [Flexeril] 5 mg PO HS #30 tab 11/09/19 Gabapentin 600 mg PO QID 30 Days #120 tab 11/09/19 oxyCODONE HCL/ACETAMINOPHEN [Percocet 5-325 mg] 1 tab PO Q8HR PRN 30 Days #90 tab 11/09/19 oxyCODONE-APAP 5-325MG [Percocet 5-325 mg] 1 tab PO TID PRN #90 tab 11/09/19 Controlled Substance Measures - Controlled Substance Measures Is patient prescribed a controlled substance at discharge?: Yes When asked, does pt state using other controlled substances?: No If prescribed controlled substance>3 days was MAPS reviewed?: Yes If Rx opioid, was Start Talking consent form obtained?: Yes If opioid is for acute pain is fill amount 7 days or less?: No Was information provided regarding opioid addiction?: Yes
== END | disposition home or self-care (01) ==
LOC: PNWHC3 11:55
PROVIDERS: ATTEND Specialist
DX: G89.29 Other chronic pain (principal); R07.89 Other chest pain; M79.2 Neuralgia and neuritis, unspecified; M51.36 Other intervertebral disc degeneration, lumbar region; M47.816 Spondylosis without myelopathy or radiculopathy, lumbar region; M46.96 Unspecified inflammatory spondylopathy, lumbar region; Z79.891 Long term (current) use of opiate analgesic; F17.290 Nicotine dependence, other tobacco product, uncomplicated; Z79.899 Other long term (current) drug therapy; Z79.82 Long term (current) use of aspirin
CPT/HCPCS: 99211

== ENCOUNTER 2019-12-09 06:39 | Day surgery (SDC) | payer MEDICARE ==
[2019-12-07 14:19] VITALS: BMI 39.7
[~2019-12-09 06:39] MED LIST changes: +MIDAZOLAM 2 MG/2 ML VIAL ONE; +fentaNYL (PF) 50 MCG/ML 2 ML AMP ONE
[2019-12-09 07:32] VITALS: TEMP 97.7
[2019-12-09] MEDS ORDERED: LIDOCAINE 1% 20 ML VIAL (10MG/ML) FOR IV START SQ ONE (07:36)
[2019-12-09] MEDS ORDERED: IV FLUID CONTINUATION 300 ML IV ONE (08:58)
--- NOTE | 2019-12-09 09:08 | FL ---
EXAMINATION TYPE: FL guided pain mgmt statistic DATE OF EXAM: 12/09/2019 CLINICAL HISTORY: Back and rib pain. TECHNIQUE: Fluoroscopy. COMPARISON: None. FINDINGS: Fluoroscopic guidance was provided during pain relief procedure performed by Dr. Dean. A t otal of 8 seconds of fluoroscopic time was utilized during the procedure and 2 spot images are acquir ed. Images acquired shows needle localization overlying multiple ribs. IMPRESSION: As Above.
--- NOTE | 2019-12-09 09:25 | XR ---
EXAMINATION TYPE: XR chest 1V portable DATE OF EXAM: 12/09/2019 COMPARISON: 03/22/2019 HISTORY: Status post thoracic radiofrequency ablation procedure. TECHNIQUE: Single frontal view of the chest is obtained. FINDINGS: There is no focal air space opacity, pleural effusion, or pneumothorax seen. Possible 5 mm left upper lobe pulmonary nodule. No postprocedural pneumothorax seen. The cardiac silhouette size is within normal limits. Very mild pulmonary vascular prominence is seen. The osseous structures are intact. Cervical fusion device is partially visualized. IMPRESSION: 1. No postprocedural pneumothorax. 2. Very mild pulmonary vascular prominence. Correlate for fluid overload. 3. Possible 5 mm left upper lobe nodule which can be evaluated with nonemergent follow-up CT.
[2019-12-09 09:30] VITALS: BP 152/82; PULSE 77; RESP 16
--- NOTE | 2019-12-09 10:03 | P.PCN ---
Date of Procedure: 12/09/19 Procedure(s) Performed: Intercostal Nerve radiofrequency ablation Attending: Kaitlin Dean M.D. 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 Ultrasound was also used for the procedure and images saved to the patient's chart. PROCEDURE AND FINDINGS: The patient was greeted in the pre procedure holding area. The risk, benefits and alternatives to the procedure were again reviewed with the patient and written informed consent was placed in the chart. Prior to the procedure a time out was completed, verifying correct patient, procedure, site, positioning, and implants and/or special equipment. An IV line was placed. A 500 mL bag of NS was connected to the patient. The patient was taken to the procedure room and positioned prone on the fluoroscopy table. Routine monitors were applied including EKG leads, blood pressure cuff, and pulse oximetry. The area of subcutaneous tissue on the right side(s) overlying the T7, T8, T9, T10 levels was identified. The patient was prepped and draped in the usual sterile fashion. At this point, a radiopaque pointer was used to count all ribs corresponding to this level. Counting up from the 12th thoracic level the proper ribs were identified. The vertebral bodies were marked, and a point in the inferior margin of the corresponding ribs were identified and marked approximately 6 centimeters lateral to midline. At this point, the subcutaneous tissue and the skin was anesthetized using about 3 cc of 1% lidocaine at each level. This was accomplished with a 1-1/2 inch 25- gauge needle. Then, using continuous ultrasound guidance, 100 mm radiofrequency cannulas with a 10 mm active tip was needle was used and Os was contacted in each case. The tip of the needle was walked off the inferior aspect of the rib and at that point, sensory testing was done and patient noted stimulation at 0.7 V. Then 2 mL of 4% lidocaine was injected in each site. Radiofrequency thermocoagulation at 70 degrees celsius for 90 seconds was then performed. [place] were removed. Sterile dressings were applied. The patient tolerated the procedure well. Patient was hemodynamically stable throughout and had no difficulty with respiration or coughing or shortness of breath. The patient was taken to the recovery room where they were monitored for a brief period of time. Patient tolerated the procedure well and were discharged home in stable condition with post procedural instructions. The patient had no questions prior to discharge. Patient was instructed to go to the emergency room should they develop sudden shortness of breath, coughing or difficulty with breathing. The patient will follow up in clinic in 4 weeks. Complications: none Chest x-ray in PACU was done, revealing no acute changes and no pneumothorax. However, a lung nodule was noted. Patient was instructed to follow up with his primary care physician regarding this
== END 2019-12-09 09:54 | disposition home or self-care (01) ==
LOC: ORPAIN 06:39
PROVIDERS: ATTEND Anesthesiology
DX: G89.29 Other chronic pain (principal); G58.0 Intercostal neuropathy; M51.36 Other intervertebral disc degeneration, lumbar region; M47.26 Other spondylosis with radiculopathy, lumbar region; F17.200 Nicotine dependence, unspecified, uncomplicated; Z79.82 Long term (current) use of aspirin; Z79.890 Hormone replacement therapy; Z79.899 Other long term (current) drug therapy
CPT/HCPCS: 64620 ×3; 71045; J2250; J3010; 99152; 99153

== ENCOUNTER → 2020-01-04 | Outpatient (CLI) | payer MEDICARE ==
[2020-01-04 14:33] VITALS: BP 147/117; PULSE 82; RESP 16
--- NOTE | 2020-01-04 14:51 | P.PN ---
Subjective Progress Note Date: 01/04/20 This is a 69-year-old gentleman with history of multiple thoracic vertebral compression fractures and right intercostal neuralgia. The patient had RFA on the intercostal nerves on the right side which helped his back pain more than his anterior chest wall pain as he states. He still has pain anteriorly on the right side of his chest cage which gets worse by deep breathing. The patient smokes cigars and he was told that he has a lesion in the lung which is to be followed up by a photo specialist however the patient has been hesitant to do that. His has been having multiple surgeries lately and he was busy taking care of her. He still takes Percocet 5 mg 3 times a day and Neurontin 600 mg 4 times a day for his pain. Patient denies new-onset weakness, bowel/bladder incontinence, or any other signs or symptoms of cauda equina syndrome. There are no signs of acute intoxication, and no indications of medication diversion or overuse. In addition to above, 13-point review of systems is also negative for chest pain, shortness of breath, changes in vision, changes in hearing, new onset weakness, abdominal pain, diarrhea, extreme fatigue, malaise, fever, skin changes, homicidal or suicidal ideation, or bowel or bladder incontinence. Vital Signs: Reviewed in EMR Gen: AAOx3, NAD HEENT: PERRLA,hearing grossly normal Pulm: resp unlabored Heart: Regular Neck: supple, trachea midline Positive tenderness on the right rib cage anteriorly Neuro: CN II-XII grossly intact, Imaging: Reviewed in EMR/chart Assessment: Thoracic spondylosis without myelopathy Right intercostal neuralgia Thoracic compression fractures Tobacco abuse Plan: 1. Explanation: Opioid and psychological risk scores were reviewed. Diagnoses, prognoses, and multiple treatment options including but not limited to physical therapy, interventional therapies, adjuvant medical therapies, narcotic medication therapies, and surgery were discussed with the patient and all questions were answered to the patient's satisfaction. 2. Opioid agreement: Signed with the patient and the patient is warned not to use opioids while driving or before driving and not to combine opioids with benzodiazepines or alcohol. 3. Counseling: The patient was counseled extensively on SMOKING CESSATION, BODY MASS INDEX, EXERCISE. Specifically, the patient was instructed regarding the importance of smoking cessation, obesity, and exercise in the context of both chronic pain and overall health. 4. Procedures: None at this point 5. Consultations: The patient needs to see a photo specialist and may be a computed tomography scan of the chest. The patient will follow up with his primary care physician first. 6. Investigations: None 7. Medications: Continue Percocet 5 mg #90 pills, Neurontin 600 mg #120 pills, Flexeril 5 mg #30 pills with one refill on all 8. Disposition: Return to clinic in 8 weeks 9. Maps were reviewed and were appropriate. Controlled Substance Measures Is patient prescribed a controlled substance at discharge?: Yes When asked, does pt state using other controlled substances?: No If prescribed controlled substance>3 days was MAPS reviewed?: Yes If Rx opioid, was Start Talking consent form obtained?: Yes If opioid is for acute pain is fill amount 7 days or less?: No Was information provided regarding opioid addiction?: Yes Objective - Vital Signs Vital signs: Vital Signs Temp Pulse 82 01/04/20 14:28 Resp 16 01/04/20 14:28 BP 147/117 01/04/20 14:28 Pulse Ox
== END | disposition home or self-care (01) ==
LOC: PNWHC3 13:23
PROVIDERS: ATTEND Anesthesiology
DX: G89.29 Other chronic pain (principal); M47.814 Spondylosis without myelopathy or radiculopathy, thoracic region; M79.2 Neuralgia and neuritis, unspecified; Z72.0 Tobacco use; M48.54XA Collapsed vertebra, not elsewhere classified, thoracic region, initial encounter for fracture; Z98.890 Other specified postprocedural states; Z79.899 Other long term (current) drug therapy
CPT/HCPCS: 99211

== ENCOUNTER → 2020-04-26 | Outpatient (CLI) | payer MEDICARE ==
--- NOTE | 2020-04-26 08:38 | P.PAINPG ---
Subjective Progress Note Date: 04/26/20 THIS ENCOUNTER WAS PERFORMED A TELEMEDICINE VISIT VIA SECURE TWO-WAY AUDIO TO MINIMIZE RISK AND TRANSMISSION OF COVID-19. This is a 70-year-old gentleman with history of multiple thoracic vertebral compression fractures and right intercostal neuralgia. The patient has been managed with a combination of interventional pain procedures and medications. He underwent RFA on the intercostal nerves on the right side7, 8, 9,10 in December 2019. He is still obtaining good benefit from this, but feels the pain is starting to come back. Pain is located in the lateral aspect of right chest, rated as 8/10, described as a constant ache, worse with activity, better with rest, medications. In terms of medications, the takes Percocet 5 mg 3 times a day and Neurontin 600 mg 4 times a day for his pain. He denies side effects from medications, medications are helping to control pain and improve activity. Patient denies new-onset weakness, bowel/bladder incontinence, or any other signs or symptoms of cauda equina syndrome. There are no signs of acute intoxication, and no indications of medication diversion or overuse. In addition to above, 13-point review of systems is also negative for chest pain, shortness of breath, changes in vision, changes in hearing, new onset weakness, abdominal pain, diarrhea, extreme fatigue, malaise, fever, skin changes, homicidal or suicidal ideation, or bowel or bladder incontinence. Physical exam: Unable to be performed due to audio only telemetry visit Assessment: Thoracic spondylosis without myelopathy Right intercostal neuralgia Thoracic compression fractures Tobacco abuse Chronic use of high-risk medications including narcotic Plan: 1. Opioid agreement: Signed with the patient and is on file 2. Counseling: The patient was counseled for 3 minutes on SMOKING CESSATION, BODY MASS INDEX, EXERCISE. Specifically, the patient was instructed regarding the importance of smoking cessation, obesity, and exercise in the context of both chronic pain and overall health. He smokes cigars- about 3/day. He states he has lost some weight. 3. Procedures: will schedule RFA on the intercostal nerves on the right side7, 8, 9,10 4. Investigations: None 5. Medications: Continue Percocet 5 mg #90 pills, Neurontin 600 mg #120 pills, Flexeril 5 mg #30 pills with one refill on all 5. Disposition: Return for procedure at next available and to clinic for medication management in 8 weeks 6. Maps were reviewed and were appropriate. PQRS Measure Charge Sheet PQRS Narrative: Smoking Status Light tobacco smoker Narcotic Agreement Date Signed 10/02/17 Hx Alcohol Use (MH) No Home Medications: Ambulatory Orders Furosemide [Lasix] 40 mg PO DAILY 09/30/17 Levothyroxine Sodium [Synthroid] 100 mcg PO DAILY 09/30/17 Sertraline [Zoloft] 100 mg PO BID 09/30/17 Dexlansoprazole [Dexilant] 60 mg PO DAILY 11/04/17 Aspirin [Adult Low Dose Aspirin EC] 81 mg PO DAILY 04/13/18 Testosterone Cypionate [Depo-Testosterone] 100 mg IM [id number] 11/19/18 Multivitamins, Thera [Multivitamin (formulary)] 1 tab PO DAILY 11/04/19 Cholecalciferol [Vitamin D3 (25 Mcg = 1000 Iu)] 5,000 unit PO DAILY 12/07/19 Cyclobenzaprine [Flexeril] 5 mg PO HS 30 Days #30 tablet 03/06/20 Gabapentin [Neurontin] 600 mg PO QID 30 Days #120 tab 03/06/20 oxyCODONE HCL/ACETAMINOPHEN [Percocet 5-325 mg] 1 tab PO Q8HR PRN 30 Days #90 tab 03/06/20 Controlled Substance Measures - Controlled Substance Measures Is patient prescribed a controlled substance at discharge?: Yes When asked, does pt state using other controlled substances?: No If prescribed controlled substance>3 days was MAPS reviewed?: Yes If Rx opioid, was Start Talking consent form obtained?: Yes If opioid is for acute pain is fill amount 7 days or less?: No Was information provided regarding opioid addiction?: Yes
== END | disposition home or self-care (01) ==
LOC: PNWHC3 06:46
PROVIDERS: ATTEND Anesthesiology
DX: Z53.9 Procedure and treatment not carried out, unspecified reason (principal)

== ENCOUNTER → 2020-05-05 | Outpatient (CLI) | payer MEDICARE | END | disposition home or self-care (01) | LOC: LABWHC1 09:39 | PROVIDERS: ATTEND Family Medicine | DX: Z11.59 Encounter for screening for other viral diseases (principal) ==

== ENCOUNTER 2020-05-09 10:11 | Day surgery (SDC) | payer MEDICARE ==
[2020-05-08 10:57] VITALS: BMI 39.4
[2020-05-09 10:34] VITALS: RESP 16; TEMP 97.5
[2020-05-09] MEDS ORDERED: LACTATED RINGERS 1,000 ML IV ONE (10:45)
[2020-05-09] MEDS ORDERED: LIDOCAINE 4% (PF) 5 ML AMP ONE (11:16)
[2020-05-09] MEDS ORDERED: TRIAMCINOLONE ACETONIDE 40 MG/ML 1 ML VIAL ONE (11:16)
[2020-05-09] MEDS ORDERED: ROPIVACAINE 5MG/ML 20ML VIAL ONE (11:16)
[2020-05-09] MEDS ORDERED: ONDANSETRON 4 MG/2 ML VIAL ONE (11:16)
[2020-05-09] MEDS ORDERED: fentaNYL (PF) 50 MCG/ML 2 ML AMP ONE (11:16)
[2020-05-09] MEDS ORDERED: MIDAZOLAM 2 MG/2 ML VIAL ONE (11:16)
[2020-05-09] MEDS ORDERED: LACTATED RINGERS 1,000 ML IV SCH (12:00)
[2020-05-09] MEDS ORDERED: IV FLUID CONTINUATION 250 ML IV ONE (12:05)
--- NOTE | 2020-05-09 12:26 | XR ---
EXAMINATION TYPE: XR chest 1V portable DATE OF EXAM: 05/09/2020 COMPARISON: 12/09/2019 HISTORY: Status post right-sided pain injections. Evaluate for pneumothorax. TECHNIQUE: Single frontal view of the chest is obtained. FINDINGS: There is no focal air space opacity, pleural effusion, or pneumothorax seen. Biapical hazi ness likely relates to copious soft tissues. The cardiac silhouette size is upper limits of normal. The osseous structures are intact. Partial visualization of a cervical fusion device. Redemonstratio n of a 5 mm left apical nodular density in minimal bibasilar atelectasis. IMPRESSION: No postprocedural pneumothorax seen. Slight haziness over the lung apices likely relates to patient body habitus. Redemonstration of a left apical pulmonary nodule.
[2020-05-09 12:55] VITALS: BP 149/75; PULSE 69
--- NOTE | 2020-05-09 14:06 | FL ---
EXAMINATION TYPE: FL guided pain mgmt statistic DATE OF EXAM: 05/09/2020 CLINICAL HISTORY: Rib pain. TECHNIQUE: Fluoroscopy. COMPARISON: None. FINDINGS: Fluoroscopic guidance was provided during pain relief procedure performed by Dr. Singh . A total of 32 seconds of fluoroscopic time was utilized during the procedure and 4 spot images are a cquired. Images acquired shows needle localization at multiple ribs. IMPRESSION: As Above.
--- NOTE | 2020-05-10 07:56 | P.PCN ---
Date of Procedure: 05/09/20 Description of Procedure: Procedure(s) Performed: Intercostal Nerve radiofrequency ablation of Right T7, T8, T9, and T10 intercostal nerves Attending: Lacho Singh M.D. 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 Ultrasound was also used for the procedure and images saved to the patient's chart. PROCEDURE AND FINDINGS: The patient was greeted in the pre procedure holding area. The risk, benefits and alternatives to the procedure were again reviewed with the patient and written informed consent was placed in the chart. Prior to the procedure a time out was completed, verifying correct patient, procedure, site, positioning, and implants and/or special equipment. An IV line was placed. A 500 mL bag of NS was connected to the patient. The patient was taken to the procedure room and positioned prone on the fluoroscopy table. Routine monitors were applied including EKG leads, blood pressure cuff, and pulse oximetry. The area of subcutaneous tissue on the right side(s) overlying the T7, T8, T9, T10 levels was identified. The patient was prepped and draped in the usual sterile fashion. At this point, a radiopaque pointer was used to count all ribs corresponding to this level. Counting up from the 12th thoracic level the proper ribs were identified. The vertebral bodies were marked, and a point in the inferior margin of the corresponding ribs were identified and marked approximately 6 centimeters lateral to midline. At this point, the subcutaneous tissue and the skin was anesthetized using about 3 cc of 1% lidocaine at each level. This was accomplished with a 1-1/2 inch 25- gauge needle. Then, using continuous ultrasound guidance, 20G -100 mm radiofrequency cannulas with a 10 mm active tip was needle was used and inferior Os was contacted in each case. The tip of the needle was walked off the inferior aspect of the rib and at that point, sensory testing was done and patient noted stimulation at 0.7 V. Then 2 mL of 4% lidocaine with 5 mg Kenalog was injected in each site. Radiofrequency thermocoagulation at 80 degrees celsius for 90 seconds was then performed. [place] were removed. Sterile dressings were applied. The patient tolerated the procedure well. Patient was hemodynamically stable throughout and had no difficulty with respiration or coughing or shortness of breath. The patient was taken to the recovery room where they were monitored for a brief period of time. Patient tolerated the procedure well and were discharged home in stable condition with post procedural instructions. The patient had no questions prior to discharge. Patient was instructed to go to the emergency room should they develop sudden shortness of breath, coughing or difficulty with breathing. The patient will follow up in clinic in 4 weeks. Complications: none Chest x-ray in PACU was done, revealing no acute changes and no pneumothorax. However, a lung nodule was noted. Patient was instructed to follow up with his primary care physician regarding this
== END 2020-05-09 13:01 | disposition home or self-care (01) ==
LOC: ORPAIN 10:11
PROVIDERS: ATTEND Anesthesiology
DX: G58.0 Intercostal neuropathy (principal); M47.896 Other spondylosis, lumbar region; R91.1 Solitary pulmonary nodule; E07.9 Disorder of thyroid, unspecified; G62.9 Polyneuropathy, unspecified; Z88.0 Allergy status to penicillin
CPT/HCPCS: 71045; 64620; J2001; J2250; J3301; J2405; J3010; J2795; 99152; 99153

== ENCOUNTER → 2020-06-07 | Outpatient (CLI) | payer MEDICARE ==
--- NOTE | 2020-06-07 13:15 | P.PAINPG ---
Subjective Progress Note Date: 06/07/20 This is follow-up visit for this patient with a history of severe and chronic right-sided chest wall pain and low back pain, he is Diagnosed with right-sided intercostal neuralgia lumbar degenerative disc disease, lumbar facet arthropathy, lumbar radiculopathy status post RFA of the right intercostal nerve T7,, T8, -T9, T10, and that helped his chest wall pain significantly We have done an interventional pain procedure diadgnostic medial branch block, he had no benefit from it, but this reason we did not do the radiofrequency, and we have done transforaminal lumbar epidural steroid injection, he had no benefit from it . Currently is complaining of some posterior chest wall pain mainly on the right side, he denies any shortness of breath he denies any fever or night sweats The patient currently on Percocet 5/325 every 8 hours, Neurontin 600 mg every 6 hours, Flexeril 5 mg daily at bedtime Patient denies any side effect of the medication , patient denies any excessive drowsiness or sleepiness, patient denies any suicidal ideation, Patient reported that the current medication is helping to control the pain and improve the activity of daily livings, Patient denies any motor or sensory deficit, denies any change in the bowel movement or urination, patient denies any fever or night sweats. Objective - Vital Signs Vital signs: Vital Signs Temp Pulse 70 06/07/20 12:36 Resp 18 06/07/20 12:36 BP 163/87 06/07/20 12:36 Pulse Ox Intake & Output 06/06/20 06/07/20 06/07/20 18:59 06:59 18:59 Weight 123.831 kg - Exam -Constitutiona : Cooperative , not in acute distress . -HEENT : nech : supple , no Lymphadenopathy , normal thyroid size . : eyes : no ptosis , no icterus, no photophobia . - neurologic : Cranial nerve II to XII intact , no focal neurological deffecit . -psychatric : alert , oriented X 3 , appropriate affect , intact judgment and insight . -Lymphatic : no Lymphadenopathy . - musculoskeltal : Thoracic Spine = allodynia on the right side of the chest wall , no skin rash no discharge Lumber spine moter stegnth lower extremities ,thigh and legs 5/5 Right side , 5/5 Left side deep tendon reflexes : normal Knee Jerk , normal ankle Jerk lumber facet Loading Test =positive Right , positive Left Range of motion of the lumbar spine Flexion 30 degrees, extension 10 degrees strait leg raising test = positive at 45 degree Fabere test= positive Right , and positive L Assessment and Plan Plan: Chronic severe right-sided chest wall pain secondary to intercostal neuralgia, status post after the RFA of the right intercostal nerve T7, T8, T9, T10 Patient continued to have posterior chest wall pain on the right side chronic low back pain secondary to lumbar degenerative disc disease , lumbar spondylosis with lumbar facet arthropathy . chronic and current use of high-risk medication (opioids) Patient denies any side effects of the current pain medication and the current treatment/medication helping the patient to do activity of daily living , Diagnoses, prognosis, treatment options, including but not limited to physical therapy, medication management, interventional therapies, and surgery, were discussed with the patient All the questions answered The narcotic consent was signed and patient agreed and understood the side effects and complications of opioid treatment. Patient signed the narcotic agreement, and was orally counseled, not to overuse, not to abuse, not to Divert , not tp sell pain medication, and to take it as prescribed only, Patient was counseled not to drive or operate heavy equipment while using narcotic medication, and advised not to use alcohol or any Illicit drugs while using the narcotis. understanding that lack of compliance with any of the above instructions, will likely to cause discharge from, the pain service, not to renew his narcotic prescriptions MAPS Reviwed and it was apropriate . Medication managements= patient will be given prescription refills for Percocet 5/325 every 8 hours dispense 90 with 1 refill Neurontin 600 mg every 6 hours dispense 120 with one refill and Flexeril 5 mg daily at bedtime dispensed 30 with one refill Diagnostic study= were ordered chest x-ray to find out if patient had any fractures in the ribs on the right side. Time with Patient: Less than 30 PQRS Measure Charge Sheet Measure #130: Documentation of Current Meds in Medical Chart: Patient's medications documented in chart Measure #226: Tobacco Use: Screen & Cessation Intervention: Pt not a tobacco user Measure #111: Pneumonia Vaccination: Pneumococcal vaccine NOT administered or previously given Measure #47: Advance Care Plan: Advance care planning discussed & documented, pt chose/unable to give Measure #412: Opioid Treatment Agreement: Documented signed opioid trtmnt agreemnt min once during opioid trtmnt Measure #408: Opioid Therapy Follow-up Evaluation: Patient had f/u eval minimum every 3 months during opioid therapy Measure #317: Preventitive Care & Scrn High Bld Press & F/U: Pre-hypertensive or hypertensive BP documented, pt will f/u with PCP Measure #128: Body Mass Index (BMI) Screening & Follow-up: BMI documented ABOVE normal parameters - f/u documented Measure #131: Pain Assessment & Follow-up: Pain positive & plan documented, Follow-up scheduled Measure #431: Unhealthy Alcohol Use Preventative Care & Scrn: Patient not identified as an unhealthy alcohol user PQRS Narrative: Smoking Status Light tobacco smoker Narcotic Agreement Date Signed 06/07/20 Blood Pressure 163/87 Pain Intensity [Lower Back] 8 Pain Intensity [Right Upper 6 Back] Scale Used Numeric (1 - 10) Hx Alcohol Use (MH) No Home Medications: Ambulatory Orders Furosemide [Lasix] 40 mg PO DAILY 09/30/17 Levothyroxine Sodium [Synthroid] 100 mcg PO DAILY 09/30/17 Sertraline [Zoloft] 100 mg PO BID 09/30/17 Dexlansoprazole [Dexilant] 60 mg PO DAILY 11/04/17 Aspirin [Adult Low Dose Aspirin EC] 81 mg PO DAILY 04/13/18 Testosterone Cypionate [Depo-Testosterone] 50 mg IM [id number] 11/19/18 Multivitamins, Thera [Multivitamin (formulary)] 1 tab PO DAILY 11/04/19 Cholecalciferol [Vitamin D3 (25 Mcg = 1000 Iu)] 2,000 unit PO DAILY 12/07/19 Cyclobenzaprine [Flexeril] 5 mg PO HS 30 Days #30 tablet 06/07/20 Gabapentin [Neurontin] 600 mg PO QID 30 Days #120 tab 06/07/20 oxyCODONE HCL/ACETAMINOPHEN [Percocet 5-325 mg] 1 tab PO Q8HR PRN #90 tab 06/07/20 oxyCODONE HCL/ACETAMINOPHEN [Percocet 5-325 mg] 1 tab PO Q8HR PRN 30 Days #90 tab 06/07/20 Controlled Substance Measures - Controlled Substance Measures Is patient prescribed a controlled substance at discharge?: Yes When asked, does pt state using other controlled substances?: No If prescribed controlled substance>3 days was MAPS reviewed?: Yes If Rx opioid, was Start Talking consent form obtained?: Yes If opioid is for acute pain is fill amount 7 days or less?: No Was information provided regarding opioid addiction?: Yes
[2020-06-09 09:24] VITALS: BP 163/87; PULSE 70; RESP 18
== END | disposition home or self-care (01) ==
LOC: PNWHC3 12:30
PROVIDERS: ATTEND Specialist
DX: G89.29 Other chronic pain (principal); M51.36 Other intervertebral disc degeneration, lumbar region; M47.816 Spondylosis without myelopathy or radiculopathy, lumbar region; F11.90 Opioid use, unspecified, uncomplicated; R07.89 Other chest pain; Z87.891 Personal history of nicotine dependence; Z79.899 Other long term (current) drug therapy; Z79.890 Hormone replacement therapy; Z79.82 Long term (current) use of aspirin
CPT/HCPCS: 80307; 99211

== ENCOUNTER → 2020-08-02 | Outpatient (CLI) | payer MEDICARE ==
[2020-08-02 10:02] VITALS: BP 142/87; PULSE 83; RESP 18; TEMP 98.7
--- NOTE | 2020-08-02 10:22 | P.PN ---
Subjective Progress Note Date: 08/02/20 This is follow-up visit for this patient with a history of severe and chronic right-sided chest wall pain and low back pain, he is Diagnosed with right-sided intercostal neuralgia , and low back pain is diagnosed lumbar degenerative disc disease, lumbar facet arthropathy, lumbar radiculopathy Previously we have done RFA of the right intercostal nerve T7,, T8, -T9, T10, and that helped his chest wall pain significantly We have done an interventional pain procedure diadgnostic medial branch block, he had no benefit from it, but this reason we did not do the radiofrequency., he denies any shortness of breath he denies any fever or night sweats, The patient currently on Percocet 5/325 every 8 hours, Neurontin 600 mg every 6 hours, Flexeril 5 mg daily at bedtime Patient denies any side effect of the medication , patient denies any excessive drowsiness or sleepiness, patient denies any suicidal ideation, Patient reported that the current medication is helping to control the pain and improve the activity of daily livings, Patient denies any motor or sensory deficit, denies any change in the bowel movement or urination, patient denies any fever or night sweats. Physical examination -Constitutiona : Cooperative , not in acute distress . -HEENT : nech : supple , no Lymphadenopathy , normal thyroid size . : eyes : no ptosis , no icterus, no photophobia . - neurologic : Cranial nerve II to XII intact , no focal neurological deffecit . -psychatric : alert , oriented X 3 , appropriate affect , intact judgment and insight . -Lymphatic : no Lymphadenopathy . - musculoskeltal : Thoracic Spine = allodynia on the right side of the chest wall , no skin rash no discharge Lumber spine moter stegnth lower extremities ,thigh and legs 5/5 Right side , 5/5 Left side deep tendon reflexes : normal Knee Jerk , normal ankle Jerk lumber facet Loading Test =positive Right , positive Left Range of motion of the lumbar spine Flexion 30 degrees, extension 10 degrees strait leg raising test = positive at 45 degree Fabere test= positive Right , and positive L Assessment and Plan Chronic severe right-sided chest wall pain secondary to intercostal neuralgia, status post after the RFA of the right intercostal nerve T7, T8, T9, T10 Patient continued to have posterior chest wall pain on the right side chronic low back pain secondary to lumbar degenerative disc disease , lumbar spondylosis with lumbar facet arthropathy . chronic and current use of high-risk medication (opioids) Patient denies any side effects of the current pain medication and the current treatment/medication helping the patient to do activity of daily living , Diagnoses, prognosis, treatment options, including but not limited to physical therapy, medication management, interventional therapies, and surgery, were discussed with the patient All the questions answered The narcotic consent was signed and patient agreed and understood the side effects and complications of opioid treatment. Patient signed the narcotic agreement, and was orally counseled, not to overuse, not to abuse, not to Divert , not tp sell pain medication, and to take it as prescribed only, Patient was counseled not to drive or operate heavy equipment while using narcotic medication, and advised not to use alcohol or any Illicit drugs while using the narcotis. understanding that lack of compliance with any of the above instructions, will likely to cause discharge from, the pain service, not to renew his narcotic prescriptions MAPS Reviwed and it was apropriate . Medication managements= patient will be given prescription refills for Percocet 5/325 every 8 hours dispense 90 with 1 refill Neurontin 600 mg every 6 hours dispense 120 with one refill Flexeril 5 mg daily at bedtime dispensed 30 with one refill Diagnostic study= chest x-ray done at [facility] , it showed that patient had a compression fracture at T10. Time with Patient: Less than 30 PQRS Measure Charge Sheet Measure #130: Documentation of Current Meds in Medical Chart: Patient's medications documented in chart Measure #226: Tobacco Use: Screen & Cessation Intervention: Pt screened for atobacco use, and intervention given Measure #111: Pneumonia Vaccination: Pneumococcal vaccine NOT administered or previously given Measure #47: Advance Care Plan: Advance care planning discussed & documented, pt chose/unable to give Measure #412: Opioid Treatment Agreement: Documented signed opioid trtmnt agreemnt min once during opioid trtmnt Measure #408: Opioid Therapy Follow-up Evaluation: Patient had f/u eval minimum every 3 months during opioid therapy Measure #317: Preventitive Care & Scrn High Bld Press & F/U: Pre-hypertensive or hypertensive BP documented, pt will f/u with PCP Measure #128: Body Mass Index (BMI) Screening & Follow-up: BMI documented ABOVE normal parameters - f/u documented Measure #131: Pain Assessment & Follow-up: Pain positive & plan documented, Follow-up scheduled Measure #431: Unhealthy Alcohol Use Preventative Care & Scrn: Patient not identified as an unhealthy alcohol user PQRS Narrative: - Controlled Substance Measures Is patient prescribed a controlled substance at discharge?: Yes When asked, does pt state using other controlled substances?: No If prescribed controlled substance>3 days was MAPS reviewed?: Yes If Rx opioid, was Start Talking consent form obtained?: Yes If opioid is for acute pain is fill amount 7 days or less?: No Was information provided regarding opioid addiction?: Yes Objective - Vital Signs Vital signs: Vital Signs Temp 98.7 F 08/02/20 09:56 Pulse 83 08/02/20 09:56 Resp 18 08/02/20 09:56 BP 142/87 08/02/20 09:56 Pulse Ox 96 08/02/20 09:56
== END | disposition home or self-care (01) ==
LOC: PNWHC3 09:51
PROVIDERS: ATTEND Specialist
DX: M51.36 Other intervertebral disc degeneration, lumbar region (principal); M47.816 Spondylosis without myelopathy or radiculopathy, lumbar region; M46.96 Unspecified inflammatory spondylopathy, lumbar region; R07.89 Other chest pain; G89.29 Other chronic pain
CPT/HCPCS: 99211

== ENCOUNTER → 2020-09-27 | Outpatient (CLI) | payer MEDICARE ==
[2020-09-27 09:10] VITALS: BP 166/88; PULSE 76; RESP 22; TEMP 98.5
--- NOTE | 2020-09-27 09:36 | P.PAINPG ---
Subjective Progress Note Date: 09/27/20 Maverick a 70-year-old gentleman with chronic right mid back pain. He is diagnosed with intercostal neuralgia has been treated with radiofrequency ablation. He reports his VAS today is about 8 out of 10. He describes that he always has a VAS of 8 out of 10 and prior to the procedure his pain is always 10 out of 10. He still has some limitation in range of motion from the right mid back pain. He denies any radiation into his legs or into his arms. Denies any neck pain. Denies any lower extremity weakness. Denies any chest pain or shortness of breath. Objective - Vital Signs Vital signs: Vital Signs Temp 98.5 F 09/27/20 09:05 Pulse 76 09/27/20 09:05 Resp 22 09/27/20 09:05 BP 166/88 09/27/20 09:05 Pulse Ox 99 09/27/20 09:05 - Exam PHYSICAL EXAM: Constitutional: Awake and alert no distress Cardiovascular exam: Regular rate, no lower extremity edema, palpable pulses bilaterally Respiratory exam: No audible wheezing, no accessory muscle usage Abdominal exam: Soft nontender Muscular skeletal exam: - Cervical spine: Nontender to palpation bilaterally. Range of motion is not limited. Spurling is negative bilateral. Facet loading is negative bilaterally - Lumbar spine: Preserved lumbar lordosis. No changes in skin. Nontender palpation bilateral. Patient has full range of motion in flexion and extension as well as lateral sidebending. Straight leg raise is negative. Facet loading is negative. Nontender over the SI joints. - Thoracic spine: Tenderness palpation over the right intercostal nerve areas in the sub-scapular area. There is no erythema or fluctuance or masses palpated Neuro exam: Normal sensation bilateral upper and lower extremities. Deep tendon reflexes are 2+ bilaterally. Fabian's is negative Psychiatric exam: Cooperative, good insight Assessment and Plan Assessment: #1 thoracic spondylosis without myelopathy #2 intercostal neuralgia #3 chronic opioid dependence Plan: I discussed the patient that 8 out of 10 VAS is not very desirable, despite that he feels okay with a 10 we discussed other options. Discussed that potentially future may try and alcohol neural lysis versus the radio frequency ablation of the intercostal nerves for different spread. He is open to that. Also discussed spinal cord stimulator I'll give him some information literature about that. We discussed both the procedures in detail. I will refill the medications we discussed using medications only as prescribed to avoid having any ill effects from the medications. PQRS Measure Charge Sheet Measure #130: Documentation of Current Meds in Medical Chart: Patient's medications documented in chart Measure #226: Tobacco Use: Screen & Cessation Intervention: Pt screened for tobacco use AND intervention given Measure #111: Pneumonia Vaccination: Pneumococcal vaccine administered or previously received Measure #47: Advance Care Plan: Advance care planning discussed & documented, plan or surrogate given Measure #412: Opioid Treatment Agreement: Documented signed opioid trtmnt agreemnt min once during opioid trtmnt Measure #408: Opioid Therapy Follow-up Evaluation: Patient had f/u eval minimum every 3 months during opioid therapy Measure #317: Preventitive Care & Scrn High Bld Press & F/U: Normal blood pressure, f/u not required Measure #128: Body Mass Index (BMI) Screening & Follow-up: BMI documented ABOVE normal parameters - f/u documented Measure #131: Pain Assessment & Follow-up: Pain positive & plan documented Measure #431: Unhealthy Alcohol Use Preventative Care & Scrn: Patient not identified as an unhealthy alcohol user PQRS Narrative: Smoking Status Light tobacco smoker Narcotic Agreement Date Signed 06/07/20 Blood Pressure 166/88 Pain Intensity [Upper Back] 8 Scale Used Numeric (1 - 10) Hx Alcohol Use (MH) Yes Home Medications: Ambulatory Orders Furosemide [Lasix] 40 mg PO DAILY 09/30/17 Levothyroxine Sodium [Synthroid] 100 mcg PO DAILY 09/30/17 Sertraline [Zoloft] 100 mg PO BID 09/30/17 Dexlansoprazole [Dexilant] 60 mg PO DAILY 11/04/17 Aspirin [Adult Low Dose Aspirin EC] 81 mg PO DAILY 04/13/18 Testosterone Cypionate [Depo-Testosterone] 50 mg IM [id number] 11/19/18 Multivitamins, Thera [Multivitamin (formulary)] 1 tab PO DAILY 11/04/19 Cholecalciferol [Vitamin D3 (25 Mcg = 1000 Iu)] 2,000 unit PO DAILY 12/07/19 Cyclobenzaprine [Flexeril] 5 mg PO HS 30 Days #30 tablet 09/27/20 Gabapentin [Neurontin] 600 mg PO QID 30 Days #120 tab 09/27/20 oxyCODONE HCL/ACETAMINOPHEN [Percocet 5-325 mg] 1 tab PO Q8HR PRN 30 Days #90 tab 09/27/20 oxyCODONE HCL/ACETAMINOPHEN [Percocet 5-325 mg] 1 tab PO Q8HR PRN 30 Days #90 tab 09/27/20 Controlled Substance Measures - Controlled Substance Measures Is patient prescribed a controlled substance at discharge?: Yes When asked, does pt state using other controlled substances?: No If prescribed controlled substance>3 days was MAPS reviewed?: Yes If Rx opioid, was Start Talking consent form obtained?: Yes If opioid is for acute pain is fill amount 7 days or less?: No Was information provided regarding opioid addiction?: Yes
== END | disposition home or self-care (01) ==
LOC: PNWHC3 08:57
PROVIDERS: ATTEND Hospitalist
DX: M47.814 Spondylosis without myelopathy or radiculopathy, thoracic region (principal); G58.8 Other specified mononeuropathies; F11.20 Opioid dependence, uncomplicated; Z79.899 Other long term (current) drug therapy; Z79.890 Hormone replacement therapy; Z79.82 Long term (current) use of aspirin
CPT/HCPCS: 99211

== ENCOUNTER → 2020-11-22 | Outpatient (CLI) | payer MEDICARE ==
[2020-11-22 09:08] VITALS: BP 175/74; PULSE 94; RESP 16; TEMP 98.4
--- NOTE | 2020-11-23 18:20 | P.PN ---
Subjective Progress Note Date: 11/22/20 This is follow-up visit for this patient with a history of severe and chronic right-sided chest wall pain and low back pain, he is Diagnosed with right-sided intercostal neuralgia , and he had low back pain,he is diagnosed with lumbar degenerative disc disease, lumbar facet arthropathy, lumbar radiculopathy Previously we have done RFA of the right intercostal nerve T7,, T8, -T9, T10, and that helped his chest wall pain significantly We have done an interventional pain procedure diadgnostic medial branch block, he had no benefit from it, but this reason we did not do the radiofrequency., he denies any shortness of breath he denies any fever or night sweats,The patient currently on Percocet 5/325 every 8 hours, Neurontin 600 mg every 6 hours, Flexeril 5 mg daily at bedtime ,Patient denies any side effect of the medication , patient denies any excessive drowsiness or sleepiness, patient denies any suicidal ideation,Patient reporte that the current medication is helping to control the pain and improve the activity of daily livings,Patient denies any motor or sensory deficit, denies any change in the bowel movement or urination, patient denies any fever or night sweats. Objective - Vital Signs Vital signs: Vital Signs Temp 98.4 F 11/22/20 09:06 Pulse 94 11/22/20 09:06 Resp 16 11/22/20 09:06 BP 175/74 11/22/20 09:06 Pulse Ox 98 11/22/20 09:06 Intake & Output 11/21/20 11/22/20 11/22/20 18:59 06:59 18:59 Weight 125.191 kg - Exam -Constitutiona : Cooperative , not in acute distress . -HEENT : nech : supple , no Lymphadenopathy , normal thyroid size . : eyes : no ptosis , no icterus, no photophobia . - neurologic : Cranial nerve II to XII intact , no focal neurological deffecit . -psychatric : alert , oriented X 3 , appropriate affect , intact judgment and insight . -Lymphatic : no Lymphadenopathy . - musculoskeltal : Thoracic Spine = allodynia on the right side of the chest wall , no skin rash no discharge Lumber spine moter stegnth lower extremities ,thigh and legs 5/5 Right side , 5/5 Left side deep tendon reflexes : normal Knee Jerk , normal ankle Jerk lumber facet Loading Test =positive Right , positive Left Range of motion of the lumbar spine Flexion 30 degrees, extension 10 degrees strait leg raising test = positive at 45 degree Fabere test= positive Right , and positive L Assessment and Plan Plan: Assessment and Plan Chronic severe right-sided chest wall pain secondary to intercostal neuralgia. Patient continued to have posterior chest wall pain on the right side chronic low back pain secondary to lumbar degenerative disc disease , lumbar spondylosis with lumbar facet arthropathy . chronic and current use of high-risk medication (opioids) Patient denies any side effects of the current pain medication and the current treatment/medication helping the patient to do activity of daily living , Diagnoses, prognosis, treatment options, including but not limited to ph ysical therapy, medication management, interventional therapies, and surgery, were discussed with the patient All the questions answered The narcotic consent was signed and patient agreed and understood the side effects and complications of opioid treatment. Patient signed the narcotic agreement, and was orally counseled, not to overuse, not to abuse, not to Divert , not tp sell pain medication, and to take it as prescribed only, Patient was counseled not to drive or operate heavy equipment while using narcotic medication, and advised not to use alcohol or any Illicit drugs while using the narcotis. understanding that lack of compliance with any of the above instructions, will likely to cause discharge from, the pain service, not to renew his narcotic prescriptions MAPS Reviwed and it was apropriate . Medication managements= patient will be given prescription refills for Percocet 5/325 every 8 hours dispense 90 with 1 refill Neurontin 600 mg every 6 hours dispense 120 with one refill Flexeril 5 mg daily at bedtime dispensed 30 with one refill refferal= patient wishes to be referred for evaluation regarding spinal cord stimulator to treat his mid back pain and thoracic area pain, [facility],(we don't offer this service at our hospital) Time with Patient: Less than 30 PQRS Measure Charge Sheet Measure #130: Documentation of Current Meds in Medical Chart: Patient's medications documented in chart Measure #226: Tobacco Use: Screen & Cessation Intervention: Pt screened for atobacco use, and intervention given Measure #111: Pneumonia Vaccination: Pneumococcal vaccine NOT administered or previously given Measure #47: Advance Care Plan: Advance care planning discussed & documented, pt chose/unable to give Measure #412: Opioid Treatment Agreement: Documented signed opioid trtmnt agreemnt min once during opioid trtmnt Measure #408: Opioid Therapy Follow-up Evaluation: Patient had f/u eval minimum every 3 months during opioid therapy Measure #317: Preventitive Care & Scrn High Bld Press & F/U: Pre-hypertensive or hypertensive BP documented, pt will f/u with PCP Measure #128: Body Mass Index (BMI) Screening & Follow-up: BMI documented ABOVE normal parameters - f/u documented Measure #131: Pain Assessment & Follow-up: Pain positive & plan documented, Follow-up scheduled Measure #431: Unhealthy Alcohol Use Preventative Care & Scrn: Patient not id entified as an unhealthy alcohol user PQRS Narrative: Time with Patient: Less than 30
== END | disposition home or self-care (01) ==
LOC: PNWHC3 08:54
PROVIDERS: ATTEND Specialist
DX: G89.29 Other chronic pain (principal); M51.36 Other intervertebral disc degeneration, lumbar region; M47.816 Spondylosis without myelopathy or radiculopathy, lumbar region; R07.89 Other chest pain; G58.8 Other specified mononeuropathies; Z79.891 Long term (current) use of opiate analgesic; Z79.899 Other long term (current) drug therapy
CPT/HCPCS: 99211

== ENCOUNTER → 2020-12-26 | Outpatient (CLI) | payer MEDICARE ==
[2020-12-26 11:59] VITALS: BP 155/88; PULSE 85; RESP 18; TEMP 98.4
--- NOTE | 2020-12-26 14:16 | P.PCN ---
Date of Procedure: 12/26/20 Procedure(s) Performed: This is 70 years old male with a history of severe and chronic, is diagnosed with thoracic compression fracture, thoracic radiculopathy, and intercostal neuralgia, and low back pain is diagnosed with lumbar degenerative disc disease and lumbar spondylosis he had spinal cord stimulator trial done this technique at [facility] ,and is here today to have the leads removed, patient reported that he had 55% improvement of his pain during the trial., And he wanted to have permanent implant done at [facility], and he wants to be referred to Dr.MATT IBRAHIM , for permanent implant implant, Preoperative diagnoses= thoracic radiculopathy. 2-compression fracture thoracic spine. 3-intercostal neuralgia. 4-lumbar degenerative disc disease. 5-lumbar spondylosis and lumbar facet arthropathy. 6-thoracic degenerative disc disease Postoperative diagnoses= same as preoperative diagnoses. Procedure= removal of percutaneous electrode array of spinal cord stimulator X 2 Leads. Anesthesia= none. And under strict sterile technique, the back prepped with chlorhexidine 3,I was able to remove 2 spinal cord stimulator leads from the thoracolumbar area, both leads were intact , Patient will follow up with Dr. Rubio Ibrahim at [facility],
== END | disposition home or self-care (01) ==
LOC: PNWHC3 10:59
PROVIDERS: ATTEND Anesthesiology
DX: M51.36 Other intervertebral disc degeneration, lumbar region (principal); M48.54XS Collapsed vertebra, not elsewhere classified, thoracic region, sequela of fracture; G89.29 Other chronic pain
CPT/HCPCS: 99213

== ENCOUNTER → 2021-01-17 | Outpatient (CLI) | payer MEDICARE ==
[2021-01-17 09:21] VITALS: BP 154/85; PULSE 85; RESP 18; TEMP 98.2
--- NOTE | 2021-01-17 09:33 | P.PN ---
Subjective Progress Note Date: 01/17/21 This is follow-up visit for this patient with a history of severe and chronic right-sided chest wall pain and low back pain, he is Diagnosed with right-sided intercostal neuralgia , and he had low back pain,he is diagnosed with lumbar degenerative disc disease, lumbar facet arthropathy, lumbar radiculopathy Previously we have done RFA of the right intercostal nerve T7,, T8, -T9, T10, and that helped his chest wall pain significantly We have done an interventional pain procedure diadgnostic medial branch block, he had no benefit from it, but this reason we did not do the radiofrequency., he denies any shortness of breath he denies any fever or night sweats,The patient currently on Percocet 5/325 every 8 hours, Neurontin 600 mg every 6 hours, Flexeril 5 mg daily at bedtime ,Patient denies any side effect of the medication , patient denies any excessive drowsiness or sleepiness, patient denies any suicidal ideation,Patient reporte that the current medication is helping to control the pain and improve the activity of daily livings,Patient denies any motor or sensory deficit, denies any change in the bowel movement or urination, patient denies any fever or night sweats , patient here for medication refill, patient had a new MRI of the thoracic spine done and it showed that he had multilevel thoracic degenerative disc disease and multilevel thoracic facet arthropathy, and thoracic spinal stenosis. Objective -Constitutiona : Cooperative , not in acute distress . -HEENT : nech : supple , no Lymphadenopathy , normal thyroid size . : eyes : no ptosis , no icterus, no photophobia . - neurologic : Cranial nerve II to XII intact , no focal neurological deffecit . -psychatric : alert , oriented X 3 , appropriate affect , intact judgment and insight . -Lymphatic : no Lymphadenopathy . - musculoskeltal : Thoracic Spine = allodynia on the right side of the chest wall , no skin rash no discharge Lumber spine moter stegnth lower extremities ,thigh and legs 5/5 Right side , 5/5 Left side deep tendon reflexes : normal Knee Jerk , normal ankle Jerk lumber facet Loading Test =positive Right , positive Left Range of motion of the lumbar spine Flexion 30 degrees, extension 10 degrees strait leg raising test = positive at 45 degree Fabere test= positive Right , and positive L Assessment and Plan Chronic severe right-sided chest wall pain secondary to intercostal neuralgia. Patient continued to have posterior chest wall pain on the right side chronic low back pain secondary to lumbar degenerative disc disease , lumbar spondylosis with lumbar facet arthropathy . chronic and current use of high-risk medication (opioids) Patient denies any side effects of the current pain medication and the current treatment/medication helping the patient to do activity of daily living , Diagnoses, prognosis, treatment options, including but not limited to physical therapy, medication management, interventional therapies, and surgery, were discussed with the patient All the questions answered The narcotic consent was signed and patient agreed and understood the side effects and complications of opioid treatment. Patient signed the narcotic agreement, and was orally counseled, not to overuse, not to abuse, not to Divert , not tp sell pain medication, and to take it as prescribed only, Patient was counseled not to drive or operate heavy equipment while using narcotic medication, and advised not to use alcohol or any Illicit drugs while using the narcotis. understanding that lack of compliance with any of the above instructions, will likely to cause discharge from, the pain service, not to renew his narcotic prescriptions MAPS Reviwed and it was apropriate . Medication managements= patient will be given prescription refills for Percocet 5/325 every 8 hours dispense 90 with 1 refill Neurontin 600 mg every 6 hours dispense 120 with one refill Flexeril 5 mg daily at bedtime dispensed 30 with one refill refferal= patiens will follow up with spine surgeon for evaluation regarding permanent implant of spinal cord stimulator Time with Patient: Less than 30 PQRS Measure Charge Sheet Measure #130: Documentation of Current Meds in Medical Chart: Patient's medications documented in chart Measure #226: Tobacco Use: Screen & Cessation Intervention: Pt screened for atobacco use, and intervention given Measure #111: Pneumonia Vaccination: Pneumococcal vaccine administered or previously given Measure #47: Advance Care Plan: Advance care planning discussed & documented, pt chose/unable to give Measure #412: Opioid Treatment Agreement: Documented signed opioid trtmnt agreemnt min once during opioid trtmnt Measure #408: Opioid Therapy Follow-up Evaluation: Patient had f/u eval minimum every 3 months during opioid therapy Measure #317: Preventitive Care & Scrn High Bld Press & F/U: Pre-hypertensive or hypertensive BP documented, pt will f/u with PCP Measure #128: Body Mass Index (BMI) Screening & Follow-up: BMI documented ABOVE normal parameters - f/u documented Measure #131: Pain Assessment & Follow-up: Pain positive & plan documented, Follow-up scheduled Measure #431: Unhealthy Alcohol Use Preventative Care & Scrn: Patient not identified as an unhealthy alcohol user PQRS Narrative: Time with Patient: Less than 30 Objective - Vital Signs Vital signs: Vital Signs Temp 98.2 F 01/17/21 09:17 Pulse 85 01/17/21 09:17 Resp 18 01/17/21 09:17 BP 154/85 01/17/21 09:17 Pulse Ox 96 01/17/21 09:17
== END | disposition home or self-care (01) ==
LOC: PNWHC3 08:59
PROVIDERS: ATTEND Specialist
DX: G58.8 Other specified mononeuropathies (principal); R07.89 Other chest pain; M51.36 Other intervertebral disc degeneration, lumbar region; M47.816 Spondylosis without myelopathy or radiculopathy, lumbar region; Z79.891 Long term (current) use of opiate analgesic
CPT/HCPCS: 80307; G0482; G0463; 99212

== ENCOUNTER → 2021-03-07 | Outpatient (CLI) | payer MEDICARE ==
[2021-03-07 09:23] VITALS: BP 163/78; PULSE 86; RESP 18; TEMP 98
--- NOTE | 2021-03-07 09:43 | P.PN ---
Subjective Progress Note Date: 03/07/21 This is follow-up visit for this patient with a history of severe and chronic right-sided chest wall pain and low back pain, he is Diagnosed with right-sided intercostal neuralgia , and he had low back pain,he is diagnosed with lumbar degenerative disc disease, lumbar facet arthropathy, lumbar radiculopathy Previously we have done RFA of the right intercostal nerve T7,, T8, -T9, T10, and that helped his chest wall pain significantly We have done an interventional pain procedure diadgnostic medial branch block, he had no benefit from it, but this reason we did not do the radiofrequency., he denies any shortness of breath he denies any fever or night sweats,The patient currently on Percocet 5/325 every 8 hours, Neurontin 600 mg every 6 hours, Flexeril 5 mg daily at bedtime ,Patient denies any side effect of the medication , patient denies any excessive drowsiness or sleepiness, patient denies any suicidal ideation,Patient reporte that the current medication is helping to control the pain and improve the activity of daily livings,Patient denies any motor or sensory deficit, denies any change in the bowel movement or urination, patient denies any fever or night sweats , patient here for medication refill, patient had a new MRI of the thoracic spine done and it showed that he had multilevel thoracic degenerative disc disease and multilevel thoracic facet arthropathy, and thoracic spinal stenosis. Patient had spinal cord stimulatory trial done at different pain clinic and he is in the process of scheduling permanent implant of spinal cord stimulator Objective -Constitutiona : Cooperative , not in acute distress . -HEENT : nech : supple , no Lymphadenopathy , normal thyroid size . : eyes : no ptosis , no icterus, no photophobia . - neurologic : Cranial nerve II to XII intact , no focal neurological deffecit . -psychatric : alert , oriented X 3 , appropriate affect , intact judgment and insight . -Lymphatic : no Lymphadenopathy . - musculoskeltal : Thoracic Spine = allodynia on the right side of the chest wall , no skin rash no discharge Lumber spine moter stegnth lower extremities ,thigh and legs 5/5 Right side , 5/5 Left side deep tendon reflexes : normal Knee Jerk , normal ankle Jerk lumber facet Loading Test =positive Right , positive Left Range of motion of the lumbar spine Flexion 30 degrees, extension 10 degrees strait leg raising test = positive at 45 degree Fabere test= positive Right , and positive L Assessment and Plan Chronic severe right-sided chest wall pain secondary to intercostal neuralgia. Patient continued to have posterior chest wall pain on the right side chronic low back pain secondary to lumbar degenerative disc disease , lumbar spondylosis with lumbar facet arthropathy . chronic and current use of high-risk medication (opioids) Patient denies any side effects of the current pain medication and the current treatment/medication helping the patient to do activity of daily living , Diagnoses, prognosis, treatment options, including but not limited to physical therapy, medication management, interventional therapies, and surgery, were discussed with the patient All the questions answered The narcotic consent was signed and patient agreed and understood the side effects and complications of opioid treatment. Patient signed the narcotic agreement, and was orally counseled, not to overuse, not to abuse, not to Divert , not tp sell pain medication, and to take it as prescribed only, Patient was counseled not to drive or operate heavy equipment while using narcotic medication, and advised not to use alcohol or any Illicit drugs while using the narcotis. understanding that lack of compliance with any of the above instructions, will likely to cause discharge from, the pain service, not to renew his narcotic prescriptions MAPS Reviwed and it was apropriate . Medication managements= patient will be given prescription refills for Percocet 5/325 every 8 hours dispense 90 with 1 refill Neurontin 600 mg every 6 hours dispense 120 with one refill Flexeril 5 mg daily at bedtime dispensed 30 with one refill refferal= patiens will follow up with spine surgeon for evaluation regarding permanent implant of spinal cord stimulator Time with Patient: Less than 30 PQRS Measure Charge Sheet Measure #130: Documentation of Current Meds in Medical Chart: Patient's medications documented in chart Measure #226: Tobacco Use: Screen & Cessation Intervention: Pt screened for atobacco use, and intervention given Measure #111: Pneumonia Vaccination: Pneumococcal vaccine administered or previously given Measure #47: Advance Care Plan: Advance care planning discussed & documented, pt chose/unable to give Measure #412: Opioid Treatment Agreement: Documented signed opioid trtmnt agreemnt min once during opioid trtmnt Measure #408: Opioid Therapy Follow-up Evaluation: Patient had f/u eval minimum every 3 months during opioid therapy Measure #317: Preventitive Care & Scrn High Bld Press & F/U: Pre-hypertensive or hypertensive BP documented, pt will f/u with PCP Measure #128: Body Mass Index (BMI) Screening & Follow-up: BMI documented ABOVE normal parameters - f/u documented Measure #131: Pain Assessment & Follow-up: Pain positive & plan documented, Follow-up scheduled Measure #431: Unhealthy Alcohol Use Preventative Care & Scrn: Patient not identified as an unhealthy alcohol user PQRS Narrative: Time with Patient: Less than 30 Objective - Vital Signs Vital signs: Vital Signs Temp 98.0 F 03/07/21 09:19 Pulse 86 03/07/21 09:19 Resp 18 03/07/21 09:19 BP 163/78 03/07/21 09:19 Pulse Ox 97 03/07/21 09:19
== END ==
LOC: PNWHC3 08:58
PROVIDERS: ATTEND Specialist
DX: M51.36 Other intervertebral disc degeneration, lumbar region (principal); M47.816 Spondylosis without myelopathy or radiculopathy, lumbar region; G58.0 Intercostal neuropathy; Z79.891 Long term (current) use of opiate analgesic
CPT/HCPCS: 99211

== ENCOUNTER → 2021-05-02 | Outpatient (CLI) | payer MEDICARE ==
[2021-05-02 09:04] VITALS: BP 164/88; PULSE 87; RESP 18; TEMP 99
--- NOTE | 2021-05-02 09:38 | P.PN ---
Subjective Progress Note Date: 05/02/21 This is a 71-year-old gentleman with history of chronic lower back pain and midthoracic pain with radiation to the anterior chest area on the right side. The patient had spinal cord stimulator leads placed in a [facility] eventually however the patient states that he had better pain control after the trial than after the permanent placement. The patient also states that he started having numbness in the right leg down to the toes on the right side after the permanent placement of the leads. Also the patient had noted space surgically with the type of paddle Nevro leads.history takes Percocet 5 mg 3 times a day, Neurontin 600 mg 4 times a day and Flexeril 5 mg at night. Patient denies new-onset weakness, bowel/bladder incontinence, or any other signs or symptoms of cauda equina syndrome. There are no signs of acute intoxication, and no indications of medication diversion or overuse. In addition to above, 13-point review of systems is also negative for chest pain, shortness of breath, changes in vision, changes in hearing, new onset weakness, abdominal pain, diarrhea, extreme fatigue, malaise, fever, skin changes, homicidal or suicidal ideation, or bowel or bladder incontinence. Vital Signs: Reviewed in EMR Gen: AAOx3, NAD HEENT: PERRLA,hearing grossly normal Pulm: resp unlabored Neck: supple, trachea midline Neuro exam of the lower extremities: Normal muscle strength of the lower extremities bilaterally Straight leg raising test: Sebas's test: Range of motion of the lumbar spine: Facet loading test: Tenderness in the paravertebral musculature: Positive tenderness in the thoracic paravertebral musculature mostly on the right side. Positive tenderness in the lumbar paravertebral musculature bilaterally. Well-healed scars from his spinal cord stimulator placement. Neuro: CN II-XII grossly intact, Imaging: Reviewed in EMR/chart Assessment: Lumbar spondylosis without radiculopathy New-onset right lumbar radiculopathy after spinal cord stimulation placement Lumbar DDD Thoracic spondylosis without myelopathy Status post permanent Nevro spinal cord stimulation Plan: 1. Explanation: Opioid and psychological risk scores were reviewed. Diagnoses, prognoses, and multiple treatment options including but not limited to physical therapy, interventional therapies, adjuvant medical therapies, narcotic medication therapies, and surgery were discussed with the patient and all questions were answered to the patient's satisfaction. 2. Opioid agreement: Signed with the patient and the patient is warned not to use opioids while driving or before driving and not to combine opioids with benzodiazepines or alcohol. 3. Counseling: The patient was counseled extensively on SMOKING CESSATION, BODY MASS INDEX, EXERCISE. Specifically, the patient was instructed regarding the importance of smoking cessation, obesity, and exercise in the context of both chronic pain and overall health. 4. Procedures: None 5. Consultations: Follow-up for the neurosurgeon who placed the stimulator 6. Investigations: None 7. Medications: Continue Percocet 5 mg 3 times a day, Neurontin and Flexeril 8. Disposition: Return to clinic in 8 weeks 9. Maps were reviewed and were appropriate. Controlled Substance Measures Is patient prescribed a controlled substance at discharge?: Yes When asked, does pt state using other controlled substances?: No If prescribed controlled substance>3 days was MAPS reviewed?: Yes If Rx opioid, was Start Talking consent form obtained?: Yes If opioid is for acute pain is fill amount 7 days or less?: No Was information provided regarding opioid addiction?: Yes Objective - Vital Signs Vital signs: Vital Signs Temp 99.0 F 05/02/21 09:01 Pulse 87 05/02/21 09:01 Resp 18 05/02/21 09:01 BP 164/88 05/02/21 09:01 Pulse Ox 97 05/02/21 09:01
== END ==
LOC: PNWHC3 08:49
PROVIDERS: ATTEND Anesthesiology
DX: M47.26 Other spondylosis with radiculopathy, lumbar region (principal); M51.16 Intervertebral disc disorders with radiculopathy, lumbar region; M47.814 Spondylosis without myelopathy or radiculopathy, thoracic region; Z98.890 Other specified postprocedural states; Z88.0 Allergy status to penicillin; Z91.048 Other nonmedicinal substance allergy status; F17.200 Nicotine dependence, unspecified, uncomplicated
CPT/HCPCS: 99211

== ENCOUNTER → 2021-06-27 | Outpatient (CLI) | payer MEDICARE ==
--- NOTE | 2021-06-27 09:13 | P.PN ---
Subjective Progress Note Date: 06/27/21 This is a 71-year-old gentleman with history of chronic lower back pain with radiation to the lower extremities status post spinal cord stimulation placement. He also complains of midthoracic pain. The patient is going to have his stimulator reprogrammed to cover more of his midthoracic pain. About 4 weeks ago he developed neck pain with radiation to the right hand down to the right small finger without paresthesia in the arm on without weakness. This pain started with no precipitating events. The patient has been using Percocet, Flexeril and Neurontin for his pain. Patient denies new-onset weakness, bowel/bladder incontinence, or any other signs or symptoms of cauda equina syndrome. There are no signs of acute intoxication, and no indications of medication diversion or overuse. In addition to above, 13-point review of systems is also negative for chest p ain, shortness of breath, changes in vision, changes in hearing, new onset weakness, abdominal pain, diarrhea, extreme fatigue, malaise, fever, skin changes, homicidal or suicidal ideation, or bowel or bladder incontinence. Vital Signs: Reviewed in EMR Gen: AAOx3, NAD HEENT: PERRLA,hearing grossly normal Pulm: resp unlabored Neck: supple, trachea midline Neuro exam of the lower extremities: Normal muscle strength bilaterally Neuro exam of the upper extremities showed normal muscle strength bilaterally Straight leg raising test: Sebas's test: Range of motion of the lumbar spine: Facet loading test: Tenderness in the paravertebral musculature: Positive on the lumbar and thoracic paravertebral musculature bilaterally, also positive on the right side of his cervical spine. Neuro: CN II-XII grossly intact, Imaging: Reviewed in EMR/chart Assessment: Lumbar spondylosis without radiculopathy New-onset neck pain with radiation to the right arm without paresthesia Lumbar DDD Thoracic spondylosis without myelopathy Status post permanent Nevro spinal cord stimulation Plan: 1. Explanation: When patients on opioids, opioid and psychological risk scores were reviewed. Diagnoses, prognoses, and multiple treatment options including but not limited to physical therapy, interventional therapies, adjuvant medical therapies, narcotic medication therapies, and surgery were discussed with the patient and all questions were answered to the patient's satisfaction. 2. Opioid agreement:When patients are prescribed opoids through our clinic, opioid agreement is signed with the patient and the patient is warned not to use opioids while driving or before driving and not to combine opioids with benzodiazepines or alcohol. 3. Counseling: When patient is smoking or obese, the patient was counseled extensively on SMOKING CESSATION, BODY MASS INDEX, EXERCISE. Specifically, the patient was instructed regarding the importance of smoking cessation, obesity, and exercise in the context of both chronic pain and overall health. 4. Procedures: None 5. Consultations: None 6. Investigations: None 7. Medications: Continue Percocet 5 mg 3 times a day as needed for pain #90 pills with 1 refill, and Neurontin 600 mg 4 times a day #120 pills with 1 refill and Flexeril 5 mg at night #30 pills with no refills. 8. Disposition: Regarding the new onset neck pain with radiation to the right arm which is not associated with any paresthesia or weakness in the extremities , I asked the patient to give it a few more weeks in home that it will resolve on its own especially that it is not associated with any paresthesia or weakness as mentioned above. If that does not get better or if it starts to cause any paresthesia in the upper extremities and then we'll plan on doing a computed tomography scan with and without contrast on the cervical spine. 9. Maps were reviewed and were appropriate. Controlled Substance Measures Is patient prescribed a controlled substance at discharge?: Yes When asked, does pt state using other controlled substances?: No If prescribed controlled substance>3 days was MAPS reviewed?: Yes If Rx opioid, was Start Talking consent form obtained?: Yes If opioid is for acute pain is fill amount 7 days or less?: No Was information provided regarding opioid addiction?: Yes
[2021-06-27 09:15] VITALS: BP 164/90; PULSE 87; RESP 18; TEMP 98.1
== END ==
LOC: PNWHC3 08:24
PROVIDERS: ATTEND Anesthesiology
DX: M47.816 Spondylosis without myelopathy or radiculopathy, lumbar region (principal); M47.814 Spondylosis without myelopathy or radiculopathy, thoracic region; M51.36 Other intervertebral disc degeneration, lumbar region; M54.2 Cervicalgia; Z96.82 Presence of neurostimulator; Z88.0 Allergy status to penicillin; Z91.048 Other nonmedicinal substance allergy status; F17.200 Nicotine dependence, unspecified, uncomplicated
CPT/HCPCS: 99211

== ENCOUNTER → 2021-08-22 | Outpatient (CLI) | payer MEDICARE ==
[2021-08-22 09:05] VITALS: BP 170/84; PULSE 80; RESP 20; TEMP 98.9
--- NOTE | 2021-08-22 09:36 | P.PN ---
Subjective Progress Note Date: 08/22/21 This is follow-up visit for this patient with a history of severe and chronic right-sided chest wall pain and low back pain, he is Diagnosed with right-sided intercostal neuralgia , and he had low back pain,he is diagnosed with lumbar degenerative disc disease, lumbar facet arthropathy, lumbar radiculopathy Previously we have done RFA of the right intercostal nerve T7,, T8, -T9, T10, and that helped his chest wall pain significantly We have done an interventional pain procedure diadgnostic medial branch block, he had no benefit from it, but this reason we did not do the radiofrequency., he denies any shortness of breath he denies any fever or night sweats,The patient currently on Percocet 5/325 every 8 hours, Neurontin 600 mg every 6 hours, Flexeril 5 mg daily at bedtime ,Patient denies any side effect of the medication , patient denies any excessive drowsiness or sleepiness, patient denies any suicidal ideation,Patient reporte that the current medication is helping to control the pain and improve the activity of daily livings,Patient denies any motor or sensory deficit, denies any change in the bowel movement or urination, patient denies any fever or night sweats , patient here for medication refill, patient had a new MRI of the thoracic spine done and it showed that he had multilevel thoracic degenerative disc disease and multilevel thoracic facet arthropathy, and thoracic spinal stenosis. Patient had spinal cord stimulator permanent implanted , and continued to have severe muscle spasm mostly at night, Objective -Constitutiona : Cooperative , not in acute distress . -HEENT : nech : supple , no Lymphadenopathy , normal thyroid size . : eyes : no ptosis , no icterus, no photophobia . - neurologic : Cranial nerve II to XII intact , no focal neurological deffecit . -psychatric : alert , oriented X 3 , appropriate affect , intact judgment and insight . -Lymphatic : no Lymphadenopathy . - musculoskeltal : Thoracic Spine = allodynia on the right side of the chest wall , no skin rash no discharge Lumber spine moter stegnth lower extremities ,thigh and legs 5/5 Right side , 5/5 Left side deep tendon reflexes : normal Knee Jerk , normal ankle Jerk lumber facet Loading Test =positive Right , positive Left Range of motion of the lumbar spine Flexion 30 degrees, extension 10 degrees strait leg raising test = positive at 45 degree Fabere test= positive Right , and positive L Assessment and Plan Chronic severe right-sided chest wall pain secondary to intercostal neuralgia. Patient continued to have posterior chest wall pain on the right side chronic low back pain secondary to lumbar degenerative disc disease , lumbar spondylosis with lumbar facet arthropathy . chronic and current use of high-risk medication (opioids) Patient denies any side effects of the current pain medication and the current treatment/medication helping the patient to do activity of daily living , Diagnoses, prognosis, treatment options, including but not limited to physical therapy, medication management, interventional therapies, and surgery, were discussed with the patient All the questions answered The narcotic consent was signed and patient agreed and understood the side effects and complications of opioid treatment. Patient signed the narcotic agreement, and was orally counseled, not to overuse, not to abuse, not to Divert , not tp sell pain medication, and to take it as prescribed only, Patient was counseled not to drive or operate heavy equipment while using narcotic medication, and advised not to use alcohol or any Illicit drugs while using the narcotis. understanding that lack of compliance with any of the above instructions, will likely to cause discharge from, the pain service, not to renew his narcotic prescriptions MAPS Reviwed and it was apropriate . Medication managements= patient will be given prescription refills for Percocet 5/325 every 8 hours dispense 90 with 1 refill Neurontin 600 mg every 6 hours dispense 120 with one refill Flexeril 10 mg daily at bedtime dispensed 30 with one refill ( please from 5 mg daily at bedtime ) refferal= patiens will follow up with spine surgeon for evaluation regarding permanent implant of spinal cord stimulator Time with Patient: Less than 30 PQRS Measure Charge Sheet Measure #130: Documentation of Current Meds in Medical Chart: Patient's medications documented in chart Measure #226: Tobacco Use: Screen & Cessation Intervention: Pt screened for atobacco use, and intervention given Measure #111: Pneumonia Vaccination: Pneumococcal vaccine administered or previously given Measure #47: Advance Care Plan: Advance care planning discussed & documented, pt chose/unable to give Measure #412: Opioid Treatment Agreement: Documented signed opioid trtmnt agreemnt min once during opioid trtmnt Measure #408: Opioid Therapy Follow-up Evaluation: Patient had f/u eval minimum every 3 months during opioid therapy Measure #317: Preventitive Care & Scrn High Bld Press & F/U: Pre-hypertensive or hypertensive BP documented, pt will f/u with PCP Measure #128: Body Mass Index (BMI) Screening & Follow-up: BMI documented ABOVE normal parameters - f/u documented Measure #131: Pain Assessment & Follow-up: Pain positive & plan documented, Follow-up scheduled Measure #431: Unhealthy Alcohol Use Preventative Care & Scrn: Patient not identified as an unhealthy alcohol user PQRS Narrative: Time with Patient: Less than 30 Objective - Vital Signs Vital signs: Vital Signs Temp 98.9 F 08/22/21 09:01 Pulse 80 08/22/21 09:01 Resp 20 08/22/21 09:01 BP 170/84 08/22/21 09:01 Pulse Ox 99 08/22/21 09:01 Intake & Output 08/21/21 08/22/21 08/22/21 18:59 06:59 18:59 Weight 125.645 kg
== END ==
LOC: PNWHC3 08:43
PROVIDERS: ATTEND Specialist
DX: M47.816 Spondylosis without myelopathy or radiculopathy, lumbar region (principal); M51.36 Other intervertebral disc degeneration, lumbar region; G58.0 Intercostal neuropathy; G89.29 Other chronic pain; F17.200 Nicotine dependence, unspecified, uncomplicated; Z79.891 Long term (current) use of opiate analgesic; Z88.0 Allergy status to penicillin; Z91.048 Other nonmedicinal substance allergy status
CPT/HCPCS: 80307; G0482; G0463; 99212

== ENCOUNTER → 2021-10-17 | Outpatient (CLI) | payer MEDICARE ==
[2021-10-17 09:02] VITALS: BP 160/92; PULSE 83; RESP 18
--- NOTE | 2021-10-17 09:56 | P.PN ---
Subjective Progress Note Date: 10/17/21 To recap: this patient with a history of severe and chronic right-sided chest wall pain and low back pain, he is Diagnosed with right-sided intercostal neuralgia , and he had low back pain,he is diagnosed with lumbar degenerative disc disease, lumbar facet arthropathy, lumbar radiculopathy Previously we have done RFA of the right intercostal nerve T7,, T8, -T9, T10, and that helped his chest wall pain significantly We have done an interventional pain procedure diadgnostic medial branch block, he had no benefit from it, but this reason we did not do the radiofrequency., he denies any shortness of breath he denies any fever or night sweats,The patient currently on Percocet 5/325 every 8 hours, Neurontin 600 mg every 6 hours, Flexeril 5 mg daily at bedtime ,Patient denies any side effect of the medication , patient denies any excessive drowsiness or sleepiness, patient denies any suicidal ideation,Patient reporte that the current medication is helping to control the pain and improve the activity of daily livings,Patient denies any motor or sensory deficit, denies any change in the bowel movement or urination, patient denies any fever or night sweats , patient here for medication refill Patient had spinal cord stimulator permanent implanted at this time it has lost connection. He has a appointment with the school admissions representative 11/13/2021., Objective - Vital Signs Vital signs: Vital Signs Temp Pulse 83 10/17/21 08:59 Resp 18 10/17/21 08:59 BP 160/92 10/17/21 08:59 Pulse Ox 99 10/17/21 08:59 Intake & Output 10/16/21 10/17/21 10/17/21 18:59 06:59 18:59 Weight 124.284 kg - Exam Physical Examinations : -Constitutiona : Cooperative , not in acute distress . -HEENT : nech : supple , no Lymphadenopathy , normal thyroid size . : eyes : no ptosis , no icterus, no photophobia . - neurologic : Cranial nerve II to XII intact , no focal neurological deffecit . -psychatric : alert , oriented X 3 , appropriate affect , intact judgment and insight . -Lymphatic : no Lymphadenopathy . - musculoskeltal : Lumber spine moter stegnth lower extremities ,thigh and legs 5/5 Right side , 5/5 Left side deep tendon reflexes : normal Knee Jerk , normal ankle Jerk lumber facet Loading Test =positive Right , positive Left Range of motion of the lumbar spine Flexion 30 degrees, extension 10 degrees strait leg raising test = positive at degree Fabere test= positive Right , and positive LT . Sever tenderness over the Sacroiliac joint on the Right , and Left sides Gaenslen test= positive right ,and positive left . Seated flexion test= positive right ,and positive Left . Distraction test= positive bilaterally Sacroiliac compression test= positive bilaterally Assessment and Plan Assessment: Assessment and plan Assessment: Chronic severe right-sided chest wall pain secondary to intercostal neuralgia. Patient continued to have posterior chest wall pain on the right side chronic low back pain secondary to lumbar degenerative disc disease , lumbar spondylosis with lumbar facet arthropathy . chronic and current use of high-risk medication (opioids) Patient denies any side effects of the current pain medication and the current treatment/medication helping the patient to do activity of daily living , Diagnoses, prognosis, treatment options, including but not limited to physical therapy, medication management, interventional therapies, and surgery, were discussed with the patient All the questions answered The narcotic consent was signed and patient agreed and understood the side effects and complications of opioid treatment. Patient signed the narcotic agreement, and was orally counseled, not to overuse, not to abuse, not to Divert , not tp sell pain medication, and to take it as prescribed only, Patient was counseled not to drive or operate heavy equipment while using narcotic medication, and advised not to use alcohol or any Illicit drugs while using the narcotis. understanding that lack of compliance with any of the above instructions, will likely to cause discharge from, the pain service, not to renew his narcotic prescriptions MAPS Reviwed and it was apropriate . Plan: Medication managements= patient will be given prescription refills for Percocet 5/325 every 8 hours dispense 90 with 1 refill Neurontin 600 mg every 6 hours dispense 120 with one refill Flexeril 10 mg daily at bedtime dispensed 30 with one refill ( please from 5 mg daily at bedtime ) Patient plans on the meet with spinal cord stimulator school admissions representative 11/13/2021. Dr. Allred was available by phone for consultation during his visit. I have spent 23 minutes on patient care today. The time was used to review the medical records including relevant urine studies and Prescription history (MAPs), review of the available imaging, evaluation and examination of the patient, coordination of care with the medical staff and if applicable referring physicians, as well as creation of the medical record. - PQRS measures = - Patient's medications are documented in the chart. -Tobacco use is positive and counseling.Given. -Patient's has not received pneumococcal vaccine. -Advanced care planning discussed, patient not eligible. -Opiate contract signed. -Pain positive and follow-up visit/procedure is scheduled. -Patient's blood pressure measured 160/92, and documented in the record ,and patient will follow up with the primary care. -Patient was not identified as an unhealthy alcohol user Time with Patient: Less than 30
== END ==
LOC: PNWHC3 08:46
PROVIDERS: ATTEND Student in an Organized Health Care Education/Training Program
DX: M51.36 Other intervertebral disc degeneration, lumbar region (principal); M47.816 Spondylosis without myelopathy or radiculopathy, lumbar region; G58.0 Intercostal neuropathy; G89.29 Other chronic pain; Z79.891 Long term (current) use of opiate analgesic; F17.200 Nicotine dependence, unspecified, uncomplicated; Z88.0 Allergy status to penicillin; Z91.048 Other nonmedicinal substance allergy status
CPT/HCPCS: 99211

== ENCOUNTER → 2021-12-12 | Outpatient (CLI) | payer MEDICARE ==
[2021-12-12 10:35] VITALS: BP 163/68; PULSE 81; RESP 18; TEMP 98.2
--- NOTE | 2021-12-12 10:36 | P.PN ---
Subjective Progress Note Date: 12/12/21 Principal diagnosis: A 71 yr old male with a history of severe and chronic low back pain secondary to lumbar degenerative disc disease, disc protrusions, multiple neuroforaminal stenoses and lumbar anterolisthesis with facet arthropathy presents today for medication refills. Pain level is currently a 8 /10 in the mid to lower parts of the small of his back and radiates down the right lower extremity. Pain is dull/ achy in the lumbar region and sharp/ shooting/ tight towards his right leg. It stated in childhood when a bail of hay fell on him and he's been having lower back pain ever since. Pain is provoked by standing for periods of 20 minutes or more or with walking. Pain is alleviated with medications, topical Icy-hot gel, injections, physical therapy with massage, rest and a home based stretching regimen. Pt has a pain stimulator implant. Pt no longer wants to try chiropractic treatments. Patient is currently on Percocet 5/325mg TID prn #90, Neurontin 600mg QID #120 and Flexeril Patient denies any side effects of the medication(s), denies excessive drowsines s or sleepiness, denies suicidal ideation and reports that the current pain medication is helping to control the pain and improve activities of daily living. Patient denies any motor or sensory deficits. Patient denies any fever or night sweats, denies any change in the bowel movements or urination. Physical Examination: -Constitutional: Cooperative. Not in acute distress . -HEENT: Neck is supple. No lymphadenopathy. No thyromegaly. Normal thyroid size. Eyes: No ptosis , no icterus, no photophobia. ENT: No auditory deficits. Normal oropharynx. No Thrush. - Respiratory: Chest clear to auscultations bilaterally. No wheezing. No rhonchi. - Cardiovascular: Regular rate and rhythm. S1 / S2 , no S3 , no S4. - Gastrointestinal: Abdomen soft no tenderness. Bowel sounds positive in all four quadrants. No organomegaly. - Genitourinary: Deferred. - Neurologic: Cranial nerve II to XII intact. No focal neurological deficits. - Psychatric: Alert & oriented x 3. Matching mood & appropriate affect. Judgment and insight intact. - Lymphatic: No Lymphadenopathy. - Musculoskeletal: Cervical spine: Muscle bulk/ tone/ strength in the bilateral upper extremities normal. Facet loading test cervical area positive. Lumbar spine: Motor bulk/ tone/ strength lower extremities , thigh and legs : age appropriate Deep tendon reflexes : Normal Knee Jerk. Normal Ankle Jerk . Lumbar Facet Loading Test positive in bilateral L2-L3, L3-L4, L4-L5, L5-S1 Straight Leg Raise: positive at 30 degree right side/ left side Monika test: positive right side / left side Range of motion: Flexion of the lumbar spine <60 degrees Range of motion: Extension of the lumbar spine <20 degrees Severe tenderness over the Sacroiliac joint: right side / left side Assessment and plan: Chronic low back pain secondary to lumbar degenerative disc disease , anteriolisthesis, disc protrusions and neuroforaminal stenoses with facet arthropathy without myelopathy Recommendation to refill medications UDS reviewed and it is appropriate UDS and opioid pain agreement is up to date Chronic and current use of high-risk medication (Opioids). The patient was counseled about risk of opioid use, psychological risk associated with opioids and was orally counseled to not overuse , divert or sell medications. Pt is to store medication in a safe location. The patient is counseled against driving while using narcotic medications and also not to use alcohol or any illicit recreational drugs. Patient verbalized understanding that the lack of compliance will result in failure to renew narcotic prescription(s) as well as possible discharge from the clinic Diagnoses, prognosis and treatment options including but not limited to physical therapy, surgical interventions, interventional therapies and medication management including narcotics and adjuvant medication were discussed. All patient questions answered MAPS reviewed and it was appropriate. Prescription refill for Percocet 5/325mg prn #90 with 1 refill, Neurontin 600mg #120 with 1 refill, Flexeril 5mg QHS prn #30 with 1 refill I have spent 31 minutes on patient care today. Dr Allred was available by phone for the evaluation of this patient. The time was used to review the medical records including relevant urine studies and Prescription history (MAPs), review of the available imaging, evaluation and examination of the patient, coordination of care with the medical staff and if applicable referring physicians, as well as creation of the medical record PQRS Measure Charge Sheet Mode of Arrival: Ambulatory - Pain Location Back Non-Pharmacological Interventions: Inactivity, Massage Pharmacological Interventions: PRN Medication PQRS Narrative: Smoking Status Light tobacco smoker Narcotic Agreement Date Signed 06/27/21 Blood Pressure 163/68 Pain Intensity [Back] 8 Scale Used Numeric (1 - 10) Hx Alcohol Use (MH) Yes Home Medications: Ambulatory Orders Furosemide [Lasix] 40 mg PO DAILY 09/30/17 Levothyroxine Sodium [Synthroid] 100 mcg PO DAILY 09/30/17 Sertraline [Zoloft] 100 mg PO BID 09/30/17 Aspirin [Adult Low Dose Aspirin EC] 81 mg PO DAILY 04/13/18 Testosterone Cypionate [Depo-Testosterone] 2 ml IM [id number] 11/19/18 Multivitamins, Thera [Multivitamin (formulary)] 1 tab PO DAILY 11/04/19 Cholecalciferol [Vitamin D3 (25 Mcg = 1000 Iu)] 2,000 unit PO DAILY 12/07/19 Pantoprazole Sodium [Protonix] 40 mg PO DAILY 01/11/21 Cyclobenzaprine [Flexeril] 10 mg PO HS 30 Days #30 tab 08/22/21 Gabapentin [Neurontin] 600 mg PO QID 30 Days #120 tab 08/22/21 oxyCODONE HCL/ACETAMINOPHEN [Percocet 5-325 mg] 1 tab PO Q8HR PRN #90 tab 08/22/21
== END ==
LOC: PNWHC3 09:03
PROVIDERS: ATTEND Physician Assistant Medical
DX: M51.36 Other intervertebral disc degeneration, lumbar region (principal); M48.061 Spinal stenosis, lumbar region without neurogenic claudication; M51.26 Other intervertebral disc displacement, lumbar region; M47.816 Spondylosis without myelopathy or radiculopathy, lumbar region; M43.16 Spondylolisthesis, lumbar region; G89.29 Other chronic pain; Z79.891 Long term (current) use of opiate analgesic; F17.200 Nicotine dependence, unspecified, uncomplicated; Z88.0 Allergy status to penicillin; Z91.048 Other nonmedicinal substance allergy status
CPT/HCPCS: 99211

== ENCOUNTER → 2022-02-06 | Outpatient (CLI) | payer MEDICARE ==
[2022-02-06 09:37] VITALS: BP 134/84; PULSE 85; RESP 18; TEMP 98.7
--- NOTE | 2022-02-06 09:40 | P.PN ---
Subjective Progress Note Date: 02/06/22 Principal diagnosis: A 71 yr old male with a history of severe and chronic low back pain secondary to lumbar degenerative disc diseases and lumbar spondylosis with facet arthropathy presents today for medication refills. Patient states his pain level is 8 out of 10 in intensity, localized in the lumbar spine with radiation of sharp, tingling pain down the right lower extremity. Pain is provoked by fatiguing activity throughout the day or standing up from a laying position in the morning. Pain is alleviated with medications, topical icy hot, ice or heat provided no relief, physical therapy on 04/20, daily home stretching regimen, use of a cane for ambulation on rare occasions, massage therapy, reclining and rest. Patient is currently on oxycodone 5/325 #90, Neurontin 600 mg #120, Flexeril #30 from this clinic Patient denies any side effects of the medication(s), denies excessive drowsiness or sleepiness, denies suicidal ideation and reports that the current pain medication is helping to control the pain and improve activities of daily living. Patient denies any motor or sensory deficits. Patient denies any fever or night sweats, denies any change in the bowel movements or urination. Physical Examination: -Constitutional: Cooperative. Not in acute distress . -HEENT: Neck is supple. No lymphadenopathy. No thyromegaly. Normal thyroid size. Eyes: No ptosis , no icterus, no photophobia. ENT: No auditory deficits. Normal oropharynx. No Thrush. - Respiratory: Chest clear to auscultations bilaterally. No wheezing. No rhonchi. - Cardiovascular: Regular rate and rhythm. S1 / S2 , no S3 , no S4. - Gastrointestinal: Abdomen soft no tenderness. Bowel sounds positive in all four quadrants. No organomegaly. - Genitourinary: Deferred. - Neurologic: Cranial nerve II to XII intact. No focal neurological d eficits. - Psychatric: Alert & oriented x 3. Matching mood & appropriate affect. Judgment and insight intact. - Lymphatic: No Lymphadenopathy. - Musculoskeletal: Cervical spine: Muscle bulk/ tone/ strength in the bilateral upper extremities normal. Facet loading test cervical area positive. Lumbar spine: Motor bulk/ tone/ strength lower extremities , thigh and legs : 5/5 Deep tendon reflexes : Normal Knee Jerk. Normal Ankle Jerk . Vertebral body tenderness to palpation over L4, L5 Lumbar Facet Loading Test positive over L4, L5 bilaterally Straight Leg Raise: positive at 30 degrees right side/ left side Gaenslen's Test positive Sacral spine : Severe tenderness over the Sacroiliac joint: right side / left side Range of motion: Flexion of the lumbar spine <60 degrees Range of motion: Extension of the lumbar spine <20 degrees Gaenslen's Test positive Monika test: positive right side / left side Assessment and plan: Chronic low back pain secondary to lumbar degenerative disc disease , lumbar spondylosis with facet arthropathy without myelopathy Chronic and current use of high-risk medication (Opioids). The patient was counseled about risk of opioid use, psychological risk associated with opioids and was orally counseled to not overuse , divert or sell medications. Pt is to store medication in a safe location. The patient is counseled against driving while using narcotic medications and also not to use alcohol or any illicit recreational drugs. Patient verbalized understanding that the lack of compliance will result in failure to renew narcotic prescription(s) as well as possible discharge from the clinic Diagnoses, prognosis and treatment options including but not limited to physical therapy, surgical interventions, interventional therapies and med ication management including narcotics and adjuvant medication were discussed. All patient questions answered MAPS reviewed and it was appropriate. Urine collected for UDS today. Prescription refill for oxycodone 5/325 #90 with 2 refills, Neurontin 600 mg #120 with 2 refills, Flexeril #30 with 2 refills. I have spent 31 minutes on patient care today. Dr Allred was available by phone for the evaluation of this patient. The time was used to review the medical records including relevant urine studies and Prescription history (MAPs), review of the available imaging, evaluation and examination of the patient, coordination of care with the medical staff and if applicable referring physicians, as well as creation of the medical record Objective - Vital Signs Vital signs: Intake & Output 02/05/22 02/06/22 02/06/22 18:59 06:59 18:59 Weight 123.831 kg PQRS Measure Charge Sheet Mode of Arrival: Ambulatory - Pain Location Lower Back Non-Pharmacological Interventions: Home Exercise, Inactivity, Massage, Physical Therapy, Position/Reposition, Relaxation Technique, Stretching Pharmacological Interventions: Medication Right Leg Non-Pharmacological Interventions: Home Exercise, Inactivity, Massage, Physical Therapy, Position/Reposition, Relaxation Technique, Stretching Pharmacological Interventions: Medication PQRS Narrative: Smoking Status Light tobacco smoker Narcotic Agreement Date Signed 06/27/21 Blood Pressure 134/84 Pain Intensity [Right Leg] 8 Pain Intensity [Right Shoulder 8 ] Pain Intensity [Lower Back] 8 Scale Used Numeric (1 - 10) Hx Alcohol Use (MH) Yes Home Medications: Ambulatory Orders Furosemide [Lasix] 40 mg PO DAILY 09/30/17 Levothyroxine Sodium [Synthroid] 100 mcg PO DAILY 09/30/17 Sertraline [Zoloft] 100 mg PO BID 09/30/17 Aspirin [Adult Low Dose Aspirin EC] 81 mg PO DAILY 04/13/18 Testosterone Cypionate [Depo-Testosterone] 2 ml IM [id number] 11/19/18 Multivitamins, Thera [Multivitamin (formulary)] 1 tab PO DAILY 11/04/19 Cholecalciferol [Vitamin D3 (25 Mcg = 1000 Iu)] 2,000 unit PO DAILY 12/07/19 Pantoprazole Sodium [Protonix] 40 mg PO DAILY 01/11/21 Cyclobenzaprine [Flexeril] 10 mg PO HS 30 Days #30 tab 02/06/22 Gabapentin [Neurontin] 600 mg PO QID 30 Days #120 tab 02/06/22 oxyCODONE HCL/ACETAMINOPHEN [Percocet 5-325 mg] 1 tab PO Q8HR PRN 30 Days #90 tab 02/06/22 oxyCODONE HCL/ACETAMINOPHEN [oxyCODONE HCL/ACETAMINOPHEN 5-325] 1 tab PO Q8H PRN 30 Days #90 tab 02/06/22 oxyCODONE HCL/ACETAMINOPHEN [oxyCODONE HCL/ACETAMINOPHEN 5-325] 1 tab PO Q8H PRN 30 Days #90 tab 02/06/22
== END ==
LOC: PNWHC3 08:46
PROVIDERS: ATTEND Physician Assistant Medical
DX: M51.36 Other intervertebral disc degeneration, lumbar region (principal); M47.816 Spondylosis without myelopathy or radiculopathy, lumbar region; G89.29 Other chronic pain; Z79.891 Long term (current) use of opiate analgesic; F17.200 Nicotine dependence, unspecified, uncomplicated; Z91.048 Other nonmedicinal substance allergy status; Z88.0 Allergy status to penicillin
CPT/HCPCS: 80307; G0482; G0463; 99211

== ENCOUNTER → 2022-05-01 | Outpatient (CLI) | payer MEDICARE ==
[2022-05-01 09:50] VITALS: BP 179/85; PULSE 80; RESP 18; TEMP 98.5
--- NOTE | 2022-05-01 10:09 | P.PN ---
Subjective Progress Note Date: 05/01/22 Principal diagnosis: A 72 yr old male with a history of severe and chronic low back pain secondary to lumbar degenerative disc diseases and lumbar spondylosis with facet arthropathy presents today for medication refills. Pain level is 7 out of 10 in intensity in the lower aspect of his lumbar spine with radiation down the right lower extremity. It is constant, achy in character and provoked with bending, twisting and lifting. Pain is alleviated with medications, topicals, injections, physical therapy in March 2021, daily home stretching regimen and sleep. Patient is currently on oxycodone 5/325 #90, Neurontin 600 mg #120, Flexeril 10 mg #30 Patient denies any side effects of the medication(s), denies excessive drowsiness or sleepiness, denies suicidal ideation and reports that the current pain medication is helping to control the pain and improve activities of daily living. Patient denies any motor or sensory deficits. Patient denies any fever or night sweats, denies any change in the bowel movements or urination. Physical Examination: -Constitutional: Cooperative. Not in acute distress . -HEENT: Neck is supple. No lymphadenopathy. No thyromegaly. Normal thyroid size. Eyes: No ptosis , no icterus, no photophobia. ENT: No auditory deficits. Normal oropharynx. No Thrush. - Respiratory: Chest clear to auscultations bilaterally. No wheezing. No rhonchi. - Cardiovascular: Regular rate and rhythm. S1 / S2 , no S3 , no S4. - Gastrointestinal: Abdomen soft no tenderness. Bowel sounds positive in all four quadrants. No organomegaly. - Genitourinary: Deferred. - Neurologic: Cranial nerve II to XII intact. No focal neurological deficits. - Psychatric: Alert & oriented x 3. Matching mood & appropriate affect. Judgment and insight intact. - Lymphatic: No Lymphadenopathy. - Musculoskeletal: Cervical spine: Muscle bulk/ tone/ strength in the bilateral upper extremities normal Vertebral body tenderness to palpation over Facet loading test positive Thoracic spine Muscle bulk / tone/ strength in the bilateral paraspinal muscles normal Vertebral body tender to palpation over Facet loading test positive Lumbar spine: Motor bulk/ tone/ strength lower extremities , thigh and legs : 5/5 Deep tendon reflexes : Normal Knee Jerk. Normal Ankle Jerk . Vertebral body tenderness to palpation over L4, L5 Lumbar Facet Loading Test positive Straight Leg Raise: positive at 30 degrees right side/ left side Gaenslen's Test positive Sacral spine : Severe tenderness over the Sacroiliac joint: right side / left side Range of motion: Flexion of the lumbar spine <60 degrees Range of motion: Extension of the lumbar spine <20 degrees Gaenslen's Test positive Sebas's Test positive Monika test: positive right side / left side Thigh Thrust Test Sacral Thrust Test Assessment and plan: Chronic low back pain secondary to lumbar degenerative disc disease , lumbar spondylosis with facet arthropathy without myelopathy Chronic and current use of high-risk medication (Opioids). The patient was counseled about risk of opioid use, psychological risk associated with opioids and was orally counseled to not overuse , divert or sell medications. Pt is to store medication in a safe location. The patient is counseled against driving while using narcotic medications and also not to use alcohol or any illicit recreational drugs. Patient verbalized understanding that the lack of compliance will result in failure to renew narcotic prescription(s) as well as possible discharge from the clinic Diagnoses, prognosis and treatment options including but not limited to physical therapy, surgical interventions, interventional therapies and medication management including narcotics and adjuvant medication were discussed. All patient questions answered MAPS reviewed and it was appropriate. UDS from 02/06/22 reviewed and consistent. Prescription refill for Percocet 5/325 #90, Neurontin 600 mg #120, Flexeril 30 mg with 2 refills I have spent 31 minutes on patient care today. Dr Allred was available by phone for the evaluation of this patient. The time was used to review the medical records including relevant urine studies and Prescription history (MAPs), review of the available imaging, evaluation and examination of the patient, coordination of care with the medical staff and if applicable referring physicians, as well as creation of the medical record Objective - Vital Signs Vital signs: Vital Signs Temp 98.5 F 05/01/22 09:47 Pulse 80 05/01/22 09:47 Resp 18 05/01/22 09:47 BP 179/85 05/01/22 09:47 Pulse Ox 96 05/01/22 09:47 FiO2 Intake & Output 04/30/22 05/01/22 05/01/22 18:59 06:59 18:59 Weight 122.47 kg PQRS Measure Charge Sheet Mode of Arrival: Ambulatory - Pain Location Right Lower Back Non-Pharmacological Interventions: Home Exercise, Inactivity, Physical Therapy, Stretching Pharmacological Interventions: Block, PRN Medication, Scheduled Medication, Topical Medication PQRS Narrative: Smoking Status Light tobacco smoker Narcotic Agreement Date Signed 06/27/21 Blood Pressure 179/85 Pain Intensity [Right Lower 7 Back] Scale Used Numeric (1 - 10) Hx Alcohol Use (MH) Yes Home Medications: Ambulatory Orders Furosemide [Lasix] 40 mg PO DAILY 09/30/17 Levothyroxine Sodium [Synthroid] 100 mcg PO DAILY 09/30/17 Sertraline [Zoloft] 100 mg PO BID 09/30/17 Aspirin [Adult Low Dose Aspirin EC] 81 mg PO DAILY 04/13/18 Testosterone Cypionate [Depo-Testosterone] 2 ml IM [id number] 11/19/18 Multivitamins, Thera [Multivitamin (formulary)] 1 tab PO DAILY 11/04/19 Cholecalciferol [Vitamin D3 (25 Mcg = 1000 Iu)] 2,000 unit PO DAILY 12/07/19 Pantoprazole Sodium [Protonix] 40 mg PO DAILY 01/11/21 Cyclobenzaprine [Flexeril] 10 mg PO HS 30 Days #30 tab 05/01/22 Gabapentin [Neurontin] 600 mg PO QID 30 Days #120 tab 05/01/22 oxyCODONE HCL/ACETAMINOPHEN [Percocet 5-325 mg] 1 tab PO Q8HR PRN 30 Days #90 tab 05/01/22 oxyCODONE HCL/ACETAMINOPHEN [oxyCODONE HCL/ACETAMINOPHEN 5-325] 1 tab PO Q8H PRN 30 Days #90 tab 05/01/22 oxyCODONE HCL/ACETAMINOPHEN [oxyCODONE HCL/ACETAMINOPHEN 5-325] 1 tab PO Q8H PRN 30 Days #90 tab 05/01/22
== END ==
LOC: PNWHC3 09:30
PROVIDERS: ATTEND Specialist
DX: M51.36 Other intervertebral disc degeneration, lumbar region (principal); M47.816 Spondylosis without myelopathy or radiculopathy, lumbar region; G89.29 Other chronic pain; Z79.891 Long term (current) use of opiate analgesic; F17.290 Nicotine dependence, other tobacco product, uncomplicated; Z91.048 Other nonmedicinal substance allergy status; Z88.0 Allergy status to penicillin
CPT/HCPCS: 99211

== ENCOUNTER → 2022-10-16 | Outpatient (CLI) | payer MEDICARE ==
[2022-10-16 10:15] VITALS: BP 144/72; PULSE 81; RESP 18; TEMP 99.1
--- NOTE | 2022-10-16 14:41 | P.PAINPG ---
PQRS Measure Charge Sheet Comment: A 72 yr old male with a history of severe and chronic low back pain secondary to lumbar DDD and spondylosis with facet arthropathy without myelopathy presents today for medication refills. Pain level is currently at 8/10 in intensity, constant, localized in the mid and lower lumbar spine, dull/ achy/ sharp/ shooting towards the RLE. Pain is provoked by bending, twisting, lifting. Pain is alleviated with medications, topicals, laying supine, repositioning and rest. Interventional pain procedures completed include R Intercostal T7-8-9-10 RFA Patient is currently on Percocet 5/325mg #90, Neurontin 600mg #90, Flexeril Patient denies any side effects of the medication(s), denies excessive drowsiness or sleepiness, denies suicidal ideation and reports that the current pain medication is helping to control the pain and improve activities of daily living. Patient denies any motor or sensory deficits. Patient denies any fever or night sweats, denies any change in the bowel movements or urination. Physical Examination: -Constitutional: Cooperative. Not in acute distress . - Neurologic: Cranial nerve II to XII intact. No focal neurological deficits. - Psychatric: Alert & oriented x 3. Matching mood & appropriate affect. Judgment and insight intact. - Musculoskeletal: Cervical spine: Muscle bulk/ tone/ strength in the bilateral upper extremities normal Vertebral body tenderness to palpation over Spurling test positive Distraction test positive Facet loading test positive Thoracic spine Muscle bulk / tone/ strength in the bilateral paraspinal muscles normal Vertebral body tender to palpation over T8, T9 Facet loading test positiveon the R Lumbar spine: Motor bulk/ tone/ strength lower extremities , thigh and legs : 5/5 Deep tendon reflexes : Normal Knee Jerk. Normal Ankle Jerk . Vertebral body tenderness to palpation over L3, L4, L5 Lumbar Facet Loading Test positive Straight Leg Raise: positive at 30 degrees right side/ left side Gaenslen's Test positive Sacral spine : Severe tenderness over the Sacroiliac joint: right side / left side Range of motion: Flexion of the lumbar spine <60 degrees Range of motion: Extension of the lumbar spine <20 degrees Gaenslen's Test positive Monika test: positive right side / left side Thigh Thrust Test Sacral Thrust Test Assessment and plan: Chronic low back pain secondary to lumbar degenerative disc disease, spondylosis with facet arthropathy without myelopathy Chronic and current use of high-risk medication (Opioids). The patient was counseled about risk of opioid use, psychological risk associated with opioids and was orally counseled to not overuse , divert or sell medications. Pt is to store medication in a safe location. The patient is counseled against driving while using narcotic medications and also not to use alcohol or any illicit recreational drugs. Patient verbalized understanding that the lack of compliance will result in failure to renew narcotic prescription(s) as well as possible discharge from the clinic Diagnoses, prognosis and treatment options including but not limited to physical therapy, surgical interventions, interventional therapies and medication management including narcotics and adjuvant medication were discussed. All patient questions answered MAPS reviewed and it was appropriate. UDS from 07/24/22 reviewed and consistent Prescription refill for Percocet 5/325mg #90, Flexeril 10gm w 2 RF. Neurontin 600mg #120 2 RF I have spent less than 30 minutes on patient care today. Dr Allred was available by phone for the evaluation of this patient. The time was used to review the medical records including relevant urine studies and Prescription history (MAPs), review of the available imaging, evaluation and examination of the patient, coordination of care with the medical staff and if applicable referring physicians, as well as creation of the medical record PQRS Narrative: Smoking Status Light tobacco smoker Narcotic Agreement Date Signed 07/24/22 Hx Alcohol Use (MH) Yes Home Medications: Ambulatory Orders Furosemide [Lasix] 40 mg PO DAILY 09/30/17 Levothyroxine Sodium [Synthroid] 100 mcg PO DAILY 09/30/17 Sertraline [Zoloft] 100 mg PO BID 09/30/17 Aspirin [Adult Low Dose Aspirin EC] 81 mg PO DAILY 04/13/18 Testosterone Cypionate [Depo-Testosterone] 2 ml IM [id number] 11/19/18 Multivitamins, Thera [Multivitamin (formulary)] 1 tab PO DAILY 11/04/19 Cholecalciferol [Vitamin D3 (25 Mcg = 1000 Iu)] 2,000 unit PO DAILY 12/07/19 Pantoprazole Sodium [Protonix] 40 mg PO DAILY 01/11/21 Gabapentin [Neurontin] 600 mg PO QID 30 Days #120 tab 05/01/22 Gabapentin [Neurontin] 300 mg PO QID 30 Days #240 cap 07/24/22 Cyclobenzaprine [Flexeril] 10 mg PO HS PRN 30 Days #30 tab 10/16/22 Gabapentin 600 mg PO QID 30 Days #120 tab 10/16/22 oxyCODONE HCL/ACETAMINOPHEN [Percocet 5-325 mg] 1 tab PO Q8HR PRN 30 Days #90 tab 10/16/22 oxyCODONE HCL/ACETAMINOPHEN [oxyCODONE HCL/ACETAMINOPHEN 5-325] 1 tab PO Q8H PRN 30 Days #90 tab 10/16/22 oxyCODONE HCL/ACETAMINOPHEN [oxyCODONE HCL/ACETAMINOPHEN 5-325] 1 tab PO Q8H PRN 30 Days #90 tab 10/16/22 Controlled Substance Measures - Controlled Substance Measures Is patient prescribed a controlled substance at discharge?: Yes When asked, does pt state using other controlled substances?: Yes If prescribed controlled substance>3 days was MAPS reviewed?: Yes If Rx opioid, was Start Talking consent form obtained?: Yes Was information provided regarding opioid addiction?: Yes
== END | disposition home or self-care (01) ==
LOC: PNWHC3 09:17
PROVIDERS: ATTEND Specialist
DX: M47.896 Other spondylosis, lumbar region (principal); M51.36 Other intervertebral disc degeneration, lumbar region
CPT/HCPCS: 99211

== ENCOUNTER → 2023-06-25 | Outpatient (CLI) | payer MEDICARE ==
[2023-06-25 10:01] VITALS: BP 143/77; PULSE 79; RESP 17; TEMP 98.1
--- NOTE | 2023-06-25 13:39 | P.PAINPG ---
PQRS Measure Charge Sheet Comment: A 73 yr old male with a history of severe and chronic LBP x yrs secondary to lumbar DDD and spondylosis with facet arthropathy without myelopathy presents today for medication refills. Pain level is provoked at 9/10 in intensity, constant, localized in the lumbar spine, sore in character w shooting towards the BLEs. Pain is provoked by walking, bending, lifting for periods of 10 min or more. Pain is alleviated with PT in 2020, SCS in place prior to 2020, heat, medications, CBD topical, sitting, repositioning and rest. Patient is currently on Flexeril prn, Percocet 5/325mg TID, Neurontin 600mg QID Patient denies any side effects of the medication(s), denies excessive drowsiness or sleepiness, denies suicidal ideation and reports that the current pain medication is helping to control the pain and improve activities of daily living. Patient denies any motor or sensory deficits. Patient denies any fever or night sweats, denies any change in the bowel movements or urination. Physical Examination: -Constitutional: Cooperative. Not in acute distress . - Neurologic: Cranial nerve II to XII intact. No focal neurological deficits. - Psychatric: Alert & oriented x 3. Matching mood & appropriate affect. Judgment and insight intact. - Musculoskeletal: Cervical spine: Muscle bulk/ tone/ strength in the bilateral upper extremities normal Vertebral body tenderness to palpation over Spurling test positive Distraction test positive Facet loading test positive TTP Thoracic spine Muscle bulk / tone/ strength in the bilateral paraspinal muscles normal Vertebral body tender to palpation over Facet loading test positive TTP Lumbar spine: Motor bulk/ tone/ strength lower extremities , thigh and legs : 5/5 Deep tendon reflexes : Normal Knee Jerk. Normal Ankle Jerk . Vertebral body tenderness to palpation over L3, L4 Lumbar Facet Loading Test positive Straight Leg Raise: positive at 30 degrees right side/ left side Gaenslen's Test positive Sacral spine : Severe tenderness over the Sacroiliac joint: right side / left side Range of motion: Flexion of the lumbar spine <60 degrees Range of motion: Extension of the lumbar spine <20 degrees Gaenslen's Test positive right side / left side Monika test: positive right side / left side Thigh Thrust Test positive right side / left side Sacral Thrust Test positive right side / left side Assessment and plan: Chronic LBP secondary to lumbar DDD, spondylosis with facet arthropathy without myelopathy Chronic and current use of high-risk medication (Opioids). The patient was counseled about risk of opioid use, psychological risk associated with opioids and was orally counseled to not overuse , divert or sell medications. Pt is to store medication in a safe location. The patient is counseled against driving while using narcotic medications and also not to use alcohol or any illicit recreational drugs. Patient verbalized understanding that the lack of compliance will result in failure to renew narcotic prescription(s) as well as possible discharge from the clinic Diagnoses, prognosis and treatment options including but not limited to physical therapy, surgical interventions, interventional therapies and medication management including narcotics and adjuvant medication were discussed. All patient questions answered MAPS reviewed and it was appropriate. UDS from 01/08/23 reviewed and consistent. Prescription refill for Percocet 5/325mg #90, Neurontin 300mg #240, Flexeril w 2 RF I have spent less than 30 minutes on patient care today. Dr Allred was available by phone for the evaluation of this patient. The time was used to review the medical records including relevant urine studies and Prescription history (MAPs), review of the available imaging, evaluation and examination of the patient, coordination of care with the medical staff and if applicable referring physicians, as well as creation of the medical record PQRS Narrative: Smoking Status Light tobacco smoker Narcotic Agreement Date Signed 07/24/22 Hx Alcohol Use (MH) Yes Home Medications: Ambulatory Orders Furosemide [Lasix] 40 mg PO DAILY 09/30/17 Levothyroxine Sodium [Synthroid] 100 mcg PO DAILY 09/30/17 Sertraline [Zoloft] 100 mg PO BID 09/30/17 Aspirin [Adult Low Dose Aspirin EC] 81 mg PO DAILY 04/13/18 Testosterone Cypionate [Depo-Testosterone] 2 ml IM [id number] 11/19/18 Multivitamins, Thera [Multivitamin (formulary)] 1 tab PO DAILY 11/04/19 Cholecalciferol [Vitamin D3 (25 Mcg = 1000 Iu)] 2,000 unit PO DAILY 12/07/19 Pantoprazole Sodium [Protonix] 40 mg PO DAILY 01/11/21 Gabapentin [Neurontin] 600 mg PO QID 30 Days #120 tab 05/01/22 Cyclobenzaprine [Flexeril] 10 mg PO HS PRN 30 Days #30 tab 06/25/23 Gabapentin 600 mg PO QID 30 Days #120 tab 06/25/23 oxyCODONE HCL/ACETAMINOPHEN [Percocet 5-325 mg] 1 tab PO Q8HR PRN 30 Days #90 t ab 06/25/23 oxyCODONE HCL/ACETAMINOPHEN [oxyCODONE HCL/ACETAMINOPHEN 5-325] 1 tab PO Q8H PRN 30 Days #90 tab 06/25/23 oxyCODONE HCL/ACETAMINOPHEN [oxyCODONE HCL/ACETAMINOPHEN 5-325] 1 tab PO Q8H PRN 30 Days #90 tab 06/25/23 Controlled Substance Measures - Controlled Substance Measures Is patient prescribed a controlled substance at discharge?: Yes When asked, does pt state using other controlled substances?: No If prescribed controlled substance>3 days was MAPS reviewed?: Yes
== END ==
LOC: PNWHC3 09:27
PROVIDERS: ATTEND Specialist
DX: M51.36 Other intervertebral disc degeneration, lumbar region (principal); M47.816 Spondylosis without myelopathy or radiculopathy, lumbar region; G89.29 Other chronic pain; Z79.891 Long term (current) use of opiate analgesic; Z79.82 Long term (current) use of aspirin; Z91.048 Other nonmedicinal substance allergy status; Z88.0 Allergy status to penicillin; F17.290 Nicotine dependence, other tobacco product, uncomplicated
CPT/HCPCS: 99211

== ENCOUNTER → 2023-09-17 | Outpatient (CLI) | payer MEDICARE ==
[2023-09-17 10:09] VITALS: BP 154/72; PULSE 69; RESP 15; TEMP 98.7
--- NOTE | 2023-09-17 14:32 | P.PAINPG ---
PQRS Measure Charge Sheet Comment: A 73 yr old male with a history of severe and chronic LBP x yrs secondary to lumbar DDD and spondylosis with facet arthropathy without myelopathy presents today for medication refills. Pain level is provoked at 8/10 in intensity, constant, localized in the lumbar spine, sore in character w shooting towards the BLEs. Pain is provoked by walking, bending, lifting for periods of 10 min or more. Pain is alleviated with PT in 2020, SCS in place prior to 2020, heat, medications, CBD topical, sitting, repositioning and rest. Patient is currently on Flexeril prn, Percocet 5/325mg TID, Neurontin 600mg QID Patient denies any side effects of the medication(s), denies excessive drowsiness or sleepiness, denies suicidal ideation and reports that the current pain medication is helping to control the pain and improve activities of daily living. Patient denies any motor or sensory deficits. Patient denies any fever or night sweats, denies any change in the bowel movements or urination. Physical Examination: -Constitutional: Cooperative. Not in acute distress . - Neurologic: Cranial nerve II to XII intact. No focal neurological deficits. - Psychatric: Alert & oriented x 3. Matching mood & appropriate affect. Judgment and insight intact. - Musculoskeletal: Cervical spine: Muscle bulk/ tone/ strength in the bilateral upper extremities normal Vertebral body tenderness to palpation over Spurling test positive Distraction test positive Facet loading test positive TTP Thoracic spine Muscle bulk / tone/ strength in the bilateral paraspinal muscles normal Vertebral body tender to palpation over Facet loading test positive TTP Lumbar spine: Motor bulk/ tone/ strength lower extremities , thigh and legs : 5/5 Deep tendon reflexes : Normal Knee Jerk. Normal Ankle Jerk . Vertebral body tenderness to palpation over L3, L4 Lumbar Facet Loading Test positive Straight Leg Raise: positive at 30 degrees right side/ left side Gaenslen's Test positive Sacral spine : Severe tenderness over the Sacroiliac joint: right side / left side Range of motion: Flexion of the lumbar spine <60 degrees Range of motion: Extension of the lumbar spine <20 degrees Gaenslen's Test positive right side / left side Monika test: positive right side / left side Thigh Thrust Test positive right side / left side Sacral Thrust Test positive right side / left side Assessment and plan: Chronic LBP secondary to lumbar DDD, spondylosis with facet arthropathy without myelopathy Chronic and current use of high-risk medication (Opioids). The patient was counseled about risk of opioid use, psychological risk associated with opioids and was orally counseled to not overuse , divert or sell medications. Pt is to store medication in a safe location. The patient is counseled against driving while using narcotic medications and also not to use alcohol or any illicit recreational drugs. Patient verbalized understanding that the lack of compliance will result in failure to renew narcotic prescription(s) as well as possible discharge from the clinic Diagnoses, prognosis and treatment options including but not limited to physical therapy, surgical interventions, interventional therapies and medication management including narcotics and adjuvant medication were discussed. All patient questions answered MAPS reviewed and it was appropriate. UDS collected 09/17/23. Prescription refill for Percocet 7.5/325mg #90, Neurontin 300mg #240, Flexeril w 2 RF I have spent less than 30 minutes on patient care today. Dr Allred was available by phone for the evaluation of this patient. The time was used to review the medical records including relevant urine studies and Prescription history (MAPs), review of the available imaging, evaluation and examination of the patient, coordination of care with the medical staff and if applicable referring physicians, as well as creation of the medical record PQRS Narrative: Smoking Status Light tobacco smoker Narcotic Agreement Date Signed 07/24/22 Hx Alcohol Use (MH) Yes Home Medications: Ambulatory Orders Furosemide [Lasix] 40 mg PO DAILY 09/30/17 Levothyroxine Sodium [Synthroid] 100 mcg PO DAILY 09/30/17 Sertraline [Zoloft] 100 mg PO BID 09/30/17 Aspirin [Adult Low Dose Aspirin EC] 81 mg PO DAILY 04/13/18 Testosterone Cypionate [Depo-Testosterone] 2 ml IM [id number] 11/19/18 Multivitamins, Thera [Multivitamin (formulary)] 1 tab PO DAILY 11/04/19 Cholecalciferol [Vitamin D3 (25 Mcg = 1000 Iu)] 2,000 unit PO DAILY 12/07/19 Pantoprazole Sodium [Protonix] 40 mg PO DAILY 01/11/21 Gabapentin [Neurontin] 600 mg PO QID 30 Days #120 tab 05/01/22 Cyclobenzaprine [Flexeril] 10 mg PO HS PRN 30 Days #30 tab 09/17/23 Gabapentin 600 mg PO QID 30 Days #120 tab 09/17/23 oxyCODONE-APAP 7.5-325MG [Percocet 7.5-325 mg] 1 tab PO TID PRN 30 Days #90 tab 09/17/23 oxyCODONE-APAP 7.5-325MG [Percocet 7.5-325 mg] 1 tab PO TID PRN 30 Days #90 tab 09/17/23 oxyCODONE-APAP 7.5-325MG [Percocet 7.5-325 mg] 1 tab PO TID PRN 30 Days #90 tab 09/17/23 Controlled Substance Measures - Controlled Substance Measures Is patient prescribed a controlled substance at discharge?: Yes When asked, does pt state using other controlled substances?: No If prescribed controlled substance>3 days was MAPS reviewed?: Yes
== END ==
LOC: PNWHC3 09:08
PROVIDERS: ATTEND Specialist
DX: Z51.81 Encounter for therapeutic drug level monitoring (principal); M51.35 Other intervertebral disc degeneration, thoracolumbar region; M54.2 Cervicalgia; G89.29 Other chronic pain; F17.200 Nicotine dependence, unspecified, uncomplicated; M47.815 Spondylosis without myelopathy or radiculopathy, thoracolumbar region; Z79.891 Long term (current) use of opiate analgesic; Z79.82 Long term (current) use of aspirin; Z91.048 Other nonmedicinal substance allergy status; Z88.0 Allergy status to penicillin
CPT/HCPCS: 80307; G0463; 99212

== ENCOUNTER → 2023-12-10 | Outpatient (CLI) | payer MEDICARE ==
[2023-12-10 09:31] VITALS: BP 146/72; PULSE 83; RESP 15; TEMP 97.9
--- NOTE | 2023-12-10 14:28 | P.PAINPG ---
PQRS Measure Charge Sheet Comment: A 73 yr old male with a history of severe and chronic LBP x yrs secondary to lumbar DDD and spondylosis with facet arthropathy without myelopathy presents today for medication refills. Pain level is provoked at 9/10 in intensity, constant, localized in the lumbar spine, predominantly axial, stabbing in ildefonso racter w occasional shooting towards the BLEs. Pain is provoked by walking, bending, lifting for periods of 10 min or more. Pain is alleviated with PT in 2020, SCS in place prior to 2020, heat, medications, CBD topical, sitting, repositioning and rest. Patient is currently on Flexeril prn, Percocet 5/325mg TID, Neurontin 600mg QID Patient denies any side effects of the medication(s), denies excessive drowsiness or sleepiness, denies suicidal ideation and reports that the current pain medication is helping to control the pain and improve activities of daily living. Patient denies any motor or sensory deficits. Patient denies any fever or night sweats, denies any change in the bowel movements or urination. Physical Examination: -Constitutional: Cooperative. Not in acute distress . - Neurologic: Cranial nerve II to XII intact. No focal neurological deficits. - Psychatric: Alert & oriented x 3. Matching mood & appropriate affect. Judgment and insight intact. - Musculoskeletal: Cervical spine: Muscle bulk/ tone/ strength in the bilateral upper extremities normal Vertebral body tenderness to palpation over Spurling test positive Distraction test positive Facet loading test positive TTP Thoracic spine Muscle bulk / tone/ strength in the bilateral paraspinal muscles normal Vertebral body tender to palpation over Facet loading test positive TTP Lumbar spine: Motor bulk/ tone/ strength lower extremities , thigh and legs : 5/5 Deep tendon reflexes : Normal Knee Jerk. Normal Ankle Jerk . Vertebral body tenderness to palpation over L3, L4 Lumbar Facet Loading Test positive Straight Leg Raise: positive at 30 degrees right side/ left side Gaenslen's Test positive Sacral spine : Severe tenderness over the Sacroiliac joint: right side / left side Range of motion: Flexion of the lumbar spine <60 degrees Range of motion: Extension of the lumbar spine <20 degrees Gaenslen's Test positive right side / left side Monika test: positive right side / left side Thigh Thrust Test positive right side / left side Sacral Thrust Test positive right side / left side Assessment and plan: Chronic LBP secondary to lumbar DDD, spondylosis with facet arthropathy without myelopathy Chronic and current use of high-risk medication (Opioids). The patient was counseled about risk of opioid use, psychological risk associated with opioids and was orally counseled to not overuse , divert or sell medications. Pt is to store medication in a safe location. The patient is counseled against driving while using narcotic medications and also not to use alcohol or any illicit recreational drugs. Patient verbalized understanding that the lack of compliance will result in failure to renew narcotic prescription(s) as well as possible discharge from the clinic Diagnoses, prognosis and treatment options including but not limited to physical therapy, surgical interventions, interventional therapies and medication management including narcotics and adjuvant medication were discussed. All patient questions answered MAPS reviewed and it was appropriate. UDS fr 09/17/23 reviewed and consistent. Prescription refill for Percocet 7.5/325mg #90, Neurontin 300mg #240, Flexeril w 2 RF I have spent less than 30 minutes on patient care today. Dr Allred was available by phone for the evaluation of this patient. The time was used to review the medical records including relevant urine studies and Prescription history (MAPs), review of the available imaging, evaluation and examination of the patient, coordination of care with the medical staff and if applicable referring physicians, as well as creation of the medical record PQRS Narrative: Smoking Status Light tobacco smoker Narcotic Agreement Date Signed 07/24/22 Hx Alcohol Use (MH) Yes Home Medications: Ambulatory Orders Furosemide [Lasix] 40 mg PO DAILY 09/30/17 Levothyroxine Sodium [Synthroid] 100 mcg PO DAILY 09/30/17 Sertraline [Zoloft] 100 mg PO BID 09/30/17 Aspirin [Adult Low Dose Aspirin EC] 81 mg PO DAILY 04/13/18 Testosterone Cypionate [Depo-Testosterone] 2 ml IM [id number] 11/19/18 Multivitamins, Thera [Multivitamin (formulary)] 1 tab PO DAILY 11/04/19 Cholecalciferol [Vitamin D3 (25 Mcg = 1000 Iu)] 2,000 unit PO DAILY 12/07/19 Pantoprazole Sodium [Protonix] 40 mg PO DAILY 01/11/21 Gabapentin [Neurontin] 600 mg PO QID 30 Days #120 tab 05/01/22 Cyclobenzaprine [Flexeril] 10 mg PO HS PRN 30 Days #30 tab 12/10/23 Gabapentin 600 mg PO QID 30 Days #120 tab 12/10/23 oxyCODONE-APAP 7.5-325MG [Percocet 7.5-325 mg] 1 tab PO TID PRN 30 Days #90 tab 12/10/23 oxyCODONE-APAP 7.5-325MG [Percocet 7.5-325 mg] 1 tab PO TID PRN 30 Days #90 tab 12/10/23 oxyCODONE-APAP 7.5-325MG [Percocet 7.5-325 mg] 1 tab PO TID PRN 30 Days #90 tab 12/10/23 Controlled Substance Measures - Controlled Substance Measures Is patient prescribed a controlled substance at discharge?: Yes When asked, does pt state using other controlled substances?: No If prescribed controlled substance>3 days was MAPS reviewed?: Yes
== END ==
LOC: PNWHC3 09:02
PROVIDERS: ATTEND Specialist
DX: M51.36 Other intervertebral disc degeneration, lumbar region (principal); M47.816 Spondylosis without myelopathy or radiculopathy, lumbar region; G89.29 Other chronic pain; F17.200 Nicotine dependence, unspecified, uncomplicated; Z79.891 Long term (current) use of opiate analgesic; Z91.048 Other nonmedicinal substance allergy status; Z88.0 Allergy status to penicillin; Z79.82 Long term (current) use of aspirin
CPT/HCPCS: 99211